=== PATIENT | male | born 1960 | race Caucasian/White ===

== ENCOUNTER 2020-09-03 08:31 | Inpatient (IN) | payer BC, SELFPAY ==
[2020-09-03] VITALS (88 sets, daily range): BP systolic 77–154; BP diastolic 56–105; PULSE 98–134; RESP 18–37; TEMP 36–37; O2SAT 69–100; BMI 24.3
--- NOTE | ~2020-09-03 | XR_ITS ---
EXAMINATION: XR chest 1V portable INDICATION: Acute respiratory failure TECHNIQUE: Portable AP chest at 0550 hours COMPARISON: 09/04/2020 FINDINGS: The endotracheal tube ends approximately 7.8 cm above the randall. The nasogastric tube is f ollowed as far as the stomach. Its tip is beyond the inferior margin of the radiograph. A right inter nal jugular central venous catheter ends with its tip in the superior vena cava. A moderate size righ t pleural effusion is stable. There is no pneumothorax. Patchy bilateral airspace opacities persist i n all lung zones without significant change. The cardiomediastinal silhouette is stable. IMPRESSION: 1. Stable diffuse lung disease, consistent with pneumonia and/or pulmonary edema and/or acute respira tory distress syndrome (ARDS). 2. Moderate size right pleural effusion without significant change. Reviewed, dictated and finalized at location A. ESSIONAL ARCHITECT IMPRESSION: 1. Stable diffuse lung disease, consistent with pneumonia and/or pulmonary merry a and/or acute respiratory distress syndrome (ARDS). 2. Moderate size right pleural effusion without significant change.
--- NOTE | ~2020-09-03 | XR_ITS ---
EXAMINATION: XR chest 1V portable DATE: 09/15/2020 06:14 INDICATION: COVID 19 pneumonia. Acute respiratory failure. TECHNIQUE: frontal view of the chest was obtained. COMPARISON: Chest radiograph dated 09/14/2020 FINDINGS: Endotracheal tube tip 7.7 cm above the randall. Nasogastric tube extends below the left hemidiaphragm with distal tip collimated off the study. Right internal jugular central venous catheter with distal tip at the midsuperior vena cava. Emphysema with regions of increased lucency and architectural distortion at the bilateral upper lung zones. No significant interval change in diffuse bilateral lung disease which continues to relatively spare the subpleural lungs. Small bilateral pleural effusions. No pneumothorax. The cardiomediastina l silhouette is normal. IMPRESSION: 1. Endotracheal tube tip 7.7 cm above the randall. Recommend advancement by 5 cm. 2. No significant change in diffuse bilateral perihilar predominant opacities which could represent p ulmonary edema and/or pneumonia. 3. Small bilateral pleural effusions. 4. Emphysema. Reviewed, dictated and finalized at location A. LING LINE OPERATOR IMPRESSION: 1. Endotracheal tube tip 7.7 cm above the randall. Recommend advancement by 5 cm . 2. No significant change in diffuse bilateral perihilar predominant opacities w hich could represent pulmonary edema and/or pneumonia. 3. Small bilateral pleural effusions. 4. Emphysema.
--- NOTE | ~2020-09-03 | XR_ITS ---
EXAMINATION: XR chest 1V portable DATE: 09/12/2020 06:18 INDICATION: Pneumonia TECHNIQUE: frontal view of the chest was obtained. COMPARISON: Chest radiograph dated 09/10/2020 FINDINGS: Endotracheal tube tip 8.1 cm above the randall. Nasogastric tube extends below the left hemidiaphragm with distal tip collimated off the study. Right internal jugular central venous catheter with distal tip in the mid superior vena cava. Emphysema with increased lucency and architectural distortion at the apices. Persistent bilateral pat shanta airspace opacities. This is superimposed over a gradient of hazy lower lung predominant airspace opacities with blunting at the costophrenic angles consistent with small bilateral pleural effusions. The cardiomediastinal silhouette is normal. Old left-sided rib fractures. IMPRESSION: 1. Endotracheal tube tip 8.1 cm above the randall. Recommend advancement by 5 7 6 cm. 2. Minimal change in patchy bilateral airspace opacities concerning for pneumonia with differential i ncluding pulmonary edema. 3. Small bilateral pleural effusions. Reviewed, dictated and finalized at location A. DING SUPERVISOR IMPRESSION: 1. Endotracheal tube tip 8.1 cm above the randall. Recommend advancement by 5 7 6 cm. 2. Minimal change in patchy bilateral airspace opacities concerning for pneumon ia with differential including pulmonary edema. 3. Small bilateral pleural effusions.
--- NOTE | ~2020-09-03 | US_ITS ---
EXAMINATION: US right upper quadrant DATE: 09/04/2020 10:32 INDICATION: Abnormal liver function tests. TECHNIQUE: Multiple grayscale and Doppler ultrasound images of the abdomen were obtained. COMPARISON: CT abdomen and pelvis 09/03/2020 FINDINGS: The visualized portions of the head, body, and tail of the pancreas are normal. The liver i s normal without focal lesion. There is normal flow in main portal vein. The gallbladder is distended and contains sludge. Gallbladder wall thickening is noted. The common duct is mildly dilated to 8 mm . There is trace ascites adjacent to the gallbladder. IMPRESSION: 1. Distended gallbladder with sludge and wall thickening, but no visible gallstones. These findings a re indeterminate for acute cholecystitis. Gallbladder wall thickening may also be seen with chronic l iver disease, chronic cholecystitis, or interstitial edema, and gallbladder distention may be seen wi th fasting. Consider hepatobiliary scintigraphy. Reviewed, dictated and finalized at location A. CHIEF IMPRESSION: 1. Distended gallbladder with sludge and wall thickening, but no visible gallst ones. These findings are indeterminate for acute cholecystitis. Gallbladder wal l thickening may also be seen with chronic liver disease, chronic cholecystitis , or interstitial edema, and gallbladder distention may be seen with fasting. C onsider hepatobiliary scintigraphy.
--- NOTE | ~2020-09-03 | XR_ITS ---
EXAMINATION: XR chest 1V portable EXAM DATE: 09/09/2020 11:14 INDICATION: ET position change, reposition . Acute respiratory failure. TECHNIQUE: Portable AP frontal chest x-ray was obtained. Comparison is made to prior examination from earlier same date and 09/08/2020. FINDINGS: Endotracheal tube has been advanced, tip is 5-6 centimeters above the randall, adequate. Th ere is a nasogastric tube seen with tip collimated off the study, but below the left hemidiaphragm. There is a right IJ venous line. There is moderate to severe bilateral acute airspace disease with relative sparing of the left upper lobe. Probably pneumonia. Hyperinflated appearing lungs may indicate patient has underlying COPD. Sm all right, possible small left pleural effusions. There is no pneumothorax suspected. Cardiomedias tinal silhouette is normal. Mild thoracic spondylosis. Old rib fractures. Airspace disease appears unchanged. IMPRESSION: 1. Tubes, line in position. 2. Rather extensive right greater than left acute airspace disease unchanged.. 3. Small pleural effusions. Reviewed, dictated and finalized at location A. BERRY BOG SUPERVISOR
--- NOTE | ~2020-09-03 | XR_ITS ---
EXAMINATION: XR chest 1V portable INDICATION: Acute respiratory failure TECHNIQUE: Portable AP chest at 0536 hours COMPARISON: 09/03/2020 FINDINGS: The endotracheal tube ends approximately 6.7 cm above the randall. The nasogastric tube is f ollowed as far as the stomach. Its tip is beyond the inferior margin of the radiograph. A right inter nal jugular catheter ends with its tip in the distal superior vena cava. A moderate size right pleura l effusion is unchanged. There is no pneumothorax or left pleural effusion. The cardiomediastinal sarina houette is stable. Airspace opacities persist throughout all lung zones but have improved. IMPRESSION: 1. Diffuse lung disease with interval improvement, consistent with pneumonia and/or pulmonary edema a nd/or acute respiratory distress syndrome (ARDS). 2. Improved right pleural effusion. Reviewed, dictated and finalized at location A. CTOR OF ANESTHESIA SERVICES IMPRESSION: 1. Diffuse lung disease with interval improvement, consistent with pneumonia an d/or pulmonary edema and/or acute respiratory distress syndrome (ARDS). 2. Improved right pleural effusion.
--- NOTE | ~2020-09-03 | XR_ITS ---
EXAMINATION: XR chest 1V portable EXAM DATE: 09/07/2020 06:17 INDICATION: Acute respiratory failure. TECHNIQUE: Portable AP frontal chest x-ray was obtained. Comparison is made to prior examination from 09/06/2020, 09/05, 09/03. FINDINGS: Endotracheal tube tip is about 7 centimeters above the randall. This could be safely advanc ed 2 cm. There is a nasogastric tube seen with tip collimated off the study, but below the left hemid iaphragm. There is a right IJ venous line. There is extensive bilateral acute airspace disease with relative sparing of the left upper lobe. Pro bably pneumonia. Probable layering small pleural effusions. There is no pneumothorax suspected. C ardiomediastinal silhouette is normal. Some chronic hyperinflation. The bones and soft tissues are u nremarkable. There is no significant interval change compared to prior exam. IMPRESSION: 1. ET tube could be safely advanced 2 cm. 2. Extensive bilateral acute airspace disease. 3. Probable layering small pleural effusions. Reviewed, dictated and finalized at location A. TECH
--- NOTE | ~2020-09-03 | XR_ITS ---
EXAMINATION: XR chest ET placement DATE: 09/03/2020 14:24 INDICATION: Intubation. TECHNIQUE: A single frontal view of the chest was obtained on 2 radiograph. COMPARISON: Chest single view at 9:19 AM FINDINGS: There are lucencies in the lungs, consistent with emphysema. There are airspace opacities i n all right lung zones and left mid and lower lung zones with a lower lung predominance. No pleural e ffusion or pneumothorax. The heart size is normal. The endotracheal tube tip is 7.4 cm above the franco na. The nasogastric tube tip is beyond the inferior margin of the radiograph, but at least to the sto mach. A right internal jugular central venous catheter is seen with tip in the superior vena cava. IMPRESSION: 1. Airspace opacities in all right lung zones and left mid and lower lung zones with a lower lung pre dominance, consistent with pneumonia. 2. Emphysema. Reviewed, dictated and finalized at location A. ING SUPERVISOR IMPRESSION: 1. Airspace opacities in all right lung zones and left mid and lower lung zones with a lower lung predominance, consistent with pneumonia. 2. Emphysema.
--- NOTE | ~2020-09-03 | CT_ITS ---
EXAMINATION: CT abdomen pelvis wo con DATE: 09/03/2020 11:50 INDICATION: Low abdominal pain. TECHNIQUE: Computed tomography (CT) of the abdomen and pelvis was performed without intravenous contr ast. Automated exposure control and iterative reconstruction technique were employed. The dose-length product was 824.21 mGy-cm. COMPARISON: None. FINDINGS: There are extensive airspace opacities in the lower lobes with air bronchograms and cavitat ion, consistent with pneumonia. There are tree-in-bud opacities and centrilobular nodules in right mi ddle lobe, consistent with pneumonia. There is mild atelectasis in lingula. The heart size is normal. No pericardial effusion. There is diffuse hepatic steatosis. Calcifications in the spleen are consis tent with old granulomatous disease. The gallbladder, pancreas, adrenal glands, and kidneys are sandra l. There is no urolithiasis. There are scattered diverticula in the colon. There is a left inguinal h ernia containing nonobstructed sigmoid colon. There is a right inguinal hernia containing small bowel and appendix. Small bowel is dilated proximal to the right inguinal hernia, consistent with obstruct ion. There are no pathologically enlarged lymph nodes. There is no free intraperitoneal fluid. There is a total right hip arthroplasty. There is severe left hip osteoarthritis with large joint effusion and iliopsoas bursitis. There are chronic bilateral L5 pars defects. There is mild lumbar spondylosis . There is mild chronic anterior wedging of T11-L1 vertebral bodies. IMPRESSION: 1. Right inguinal hernia containing small bowel and appendix with small bowel obstruction. 2. Left inguinal hernia containing nonobstructed sigmoid colon. 3. Necrotizing lobar pneumonia in the lower lobes. Mild pneumonia in right middle lobe. Reviewed, dictated and finalized at location A. NCT WRITING INSTRUCTOR IMPRESSION: 1. Right inguinal hernia containing small bowel and appendix with small bowel o bstruction. 2. Left inguinal hernia containing nonobstructed sigmoid colon. 3. Necrotizing lobar pneumonia in the lower lobes. Mild pneumonia in right midd le lobe.
--- NOTE | ~2020-09-03 | XR_ITS ---
EXAMINATION: XR chest 1V portable INDICATION: Acute respiratory failure TECHNIQUE: Portable AP chest at 0523 hours COMPARISON: 09/05/2020 FINDINGS: The endotracheal tube ends approximately 7.2 cm above the randall. The nasogastric tube is i n the stomach. A right internal jugular catheter ends with its tip in the superior vena cava. There i s a stable moderate-sized right pleural effusion. Patchy bilateral airspace opacities persist in all lung zones without significant change. The cardiomediastinal silhouette is stable. IMPRESSION: 1. Stable diffuse lung disease, consistent with pneumonia and/or pulmonary edema and/or acute respira tory distress syndrome (ARDS). 2. Moderate size right pleural effusion, stable. Reviewed, dictated and finalized at location A. TRICAL SUPERVISOR IMPRESSION: 1. Stable diffuse lung disease, consistent with pneumonia and/or pulmonary merry a and/or acute respiratory distress syndrome (ARDS). 2. Moderate size right pleural effusion, stable.
--- NOTE | ~2020-09-03 | XR_ITS ---
EXAMINATION: XR chest 1V portable EXAM DATE: 09/10/2020 06:40 INDICATION: Pneumonia. TECHNIQUE: Portable AP frontal chest x-ray was obtained. Comparison is made to prior examination from 09/09/2020. FINDINGS: Endotracheal tube tip just below the level of the clavicles, may have retracted slightly. Nasogastric tube tip in stomach but side port probably at the gastroesophageal junction. There is a right IJ venous line. There is moderate to severe bilateral acute airspace disease with relative sparing of the left upper lobe. Probably pneumonia. Hyperinflated appearing lungs may indicate patient has underlying COPD. Sm all right, possible small left pleural effusions. There is no pneumothorax suspected. Cardiomedias tinal silhouette is normal. Mild thoracic spondylosis. Old rib fractures. Airspace disease appears unchanged, accounting for differences in technique. IMPRESSION: 1. ET tube could be safely advanced 2 cm. NG tube could be safely advanced 5 cm. 2. Extensive right greater than left acute airspace disease unchanged. 3. Small pleural effusions. STARTER Reviewed, dictated and finalized at location A. IMPRESSION: 1. ET tube could be safely advanced 2 cm. NG tube could be safely advanced 5 c m. 2. Extensive right greater than left acute airspace disease unchanged. 3. Small pleural effusions.
--- NOTE | ~2020-09-03 | US_ITS ---
EXAMINATION: US scrotum doppler EXAM DATE: 09/04/2020 10:37 INDICATION: large scrotal. TECHNIQUE: Multiple grayscale and Doppler images of the testicles and scrotum were obtained bilateral ly. Correlation is made to CT abdomen pelvis from 09/03/2020. FINDINGS: Right testicle measures 3.6 x 2.2 x 3.8 cm and is morphologically normal. Low resistance Doppler lakisha w confirmed. The epididymis is unremarkable. There is large right inguinal hernia with several loops of small bowel inside, demonstrating peristalsis. Moderate hydrocele. Left testicle measures 4.0 x 2.2 x 3.4 cm and is morphologically normal. Low resistance Doppler flow confirmed. The epididymis is unremarkable. Left inguinal tubular structure likely the sigmoid colon correlating to recent CT scan, extending toward the scrotal sac. There is small hydrocele. IMPRESSION: 1. Right inguinal hernia with small bowel reaching the scrotum. Moderate hydrocele. 2. Left inguinal hernia with colon in inguinal canal. Small hydrocele. 3. Morphologically normal testicles. No torsion. Reviewed, dictated and finalized at location B. GER OF EMPLOYEE RELATIONS IMPRESSION: 1. Right inguinal hernia with small bowel reaching the scrotum. Moderate hydro luz maria. 2. Left inguinal hernia with colon in inguinal canal. Small hydrocele. 3. Morphologically normal testicles. No torsion.
--- NOTE | ~2020-09-03 | XR_ITS ---
EXAMINATION: XR chest 1V portable DATE: 09/03/2020 09:28 INDICATION: Hypoxia. Cough. TECHNIQUE: A single frontal view of the chest was obtained. COMPARISON: Chest 2 views 03/19/2018 FINDINGS: There are lucencies in the lungs, consistent with emphysema. There are airspace opacities i n the mid and lower lung zones, right worse than left. No pleural effusion or pneumothorax. The heart size is normal. There are old healed left rib fractures. IMPRESSION: 1. Airspace opacities in the mid and lower lung zones, right worse than left, consistent with pneumon ia. 2. Emphysema. Reviewed, dictated and finalized at location A. S AND SERVICE CHANGE LEADER IMPRESSION: 1. Airspace opacities in the mid and lower lung zones, right worse than left, c onsistent with pneumonia. 2. Emphysema.
--- NOTE | ~2020-09-03 | XR_ITS ---
EXAMINATION: XR abdomen NG/feed tube insert EXAM DATE: 09/03/2020 20:25 INDICATION: NG tube placement TECHNIQUE: Frontal projection(s) of the abdomen for interpretation. Comparison is made to prior exami nation from earlier same day. FINDINGS: Feeding tube tip and side-port project over gastric bubble, expected position. Layering zion ateral pleural effusions right greater than left. Bilateral acute airspace disease. Paucity of intra- abdominal bowel gas, nonspecific. IMPRESSION: 1. Nasogastric tube in position. Reviewed, dictated and finalized at location A. NESS TRAINER
--- NOTE | ~2020-09-03 | XR_ITS ---
EXAMINATION: XR chest 1V portable EXAM DATE: 09/09/2020 05:52 INDICATION: Acute respiratory failure. TECHNIQUE: Portable AP frontal chest x-ray was obtained. Comparison is made to prior examination from 09/08/2020. FINDINGS: Endotracheal tube tip is about 7 centimeters above the randall. This could be safely advanc ed 2 cm. There is a nasogastric tube seen with tip collimated off the study, but below the left hemid iaphragm. There is a right IJ venous line. There is moderate to severe bilateral acute airspace disease with relative sparing of the left upper lobe. Probably pneumonia. Hyperinflated appearing lungs may indicate patient has underlying COPD. Sm all right, possible small left pleural effusions. There is no pneumothorax suspected. Cardiomedias tinal silhouette is normal. Mild thoracic spondylosis. Old rib fractures. Airspace disease appears unchanged. IMPRESSION: 1. ET tube could be safely advanced 2 cm. 2. Rather extensive right greater than left acute airspace disease unchanged.. 3. Small pleural effusions. 4. Reviewed, dictated and finalized at location A. ERY SCHOOL ATTENDANT
--- NOTE | ~2020-09-03 | XR_ITS ---
EXAMINATION: XR chest 1V portable DATE: 09/13/2020 06:08 INDICATION: Acute respiratory failure. COVID 19 pneumonia. TECHNIQUE: frontal view of the chest was obtained. COMPARISON: Chest radiograph dated 09/12/2020 FINDINGS: Endotracheal tube tip 7.7 cm above the randall. Nasogastric tube extends below the left hemidiaphragm with distal tip collimated off the study. Right internal jugular central venous catheter with distal tip at the caudal superior vena cava. Emphysema with increased lucency and architectural distortion in the upper lung zones. Gradient of conn zy lower lung predominant airspace opacities with blunting at the left costophrenic angle consistent with small posterior layering bilateral pleural effusions. Superimposed perihilar and lower lung pred ominant interstitial and airspace opacities with mild increase in left perihilar region which could r epresent pulmonary edema and/or pneumonia. The cardiomediastinal silhouette is normal. IMPRESSION: 1. Endotracheal tube tip 7.7 cm above the randall. Recommend advancement by 5 cm. 2. Bilateral perihilar and lower lung predominant opacities which could represent pulmonary edema and /or pneumonia with mild increase in the left perihilar region. 3. Small bilateral pleural effusions. Reviewed, dictated and finalized at location A. COILER IMPRESSION: 1. Endotracheal tube tip 7.7 cm above the randall. Recommend advancement by 5 cm . 2. Bilateral perihilar and lower lung predominant opacities which could represe nt pulmonary edema and/or pneumonia with mild increase in the left perihilar re gion. 3. Small bilateral pleural effusions.
--- NOTE | ~2020-09-03 | XR_ITS ---
EXAMINATION: XR chest 1V portable EXAM DATE: 09/08/2020 05:55 INDICATION: Acute respiratory failure. TECHNIQUE: Portable AP frontal chest x-ray was obtained. Comparison is made to prior examination from 09/07. FINDINGS: Endotracheal tube tip is about 7 centimeters above the randall. This could be safely advanc ed 2 cm. There is a nasogastric tube seen with tip collimated off the study, but below the left hemid iaphragm. There is a right IJ venous line. There is moderate to severe bilateral acute airspace disease with relative sparing of the left upper lobe. Probably pneumonia. Hyperinflated appearing lungs may indicate patient has underlying COPD. Pro bable small pleural effusions. There is no pneumothorax suspected. Cardiomediastinal silhouette is normal. Mild thoracic spondylosis. Old rib fractures. Compared to last couple of days, suspect mild improvement in the airspace disease. IMPRESSION: 1. ET tube could be safely advanced 2 cm. 2. Mild improvement in bilateral acute airspace disease. 3. Small pleural effusions. Reviewed, dictated and finalized at location A. MENT SETTER
--- NOTE | ~2020-09-03 | XR_ITS ---
EXAMINATION: XR chest ET placement EXAM DATE: 09/03/2020 20:25 INDICATION: After intubation to confirm ET placement TECHNIQUE: Portable AP frontal chest x-ray was obtained. Comparison is made to prior examination from earlier same day. FINDINGS: Endotracheal tube tip is 6-7 centimeters above the randall, but below the level of the clavi cles. This could be safely advanced 2 cm. There is a right-sided IJ venous line. There is a nasogast elian tube seen with tip collimated off the study, but below the left hemidiaphragm. There is extensive right-sided, moderate left-sided acute airspace disease, likely pneumonia. Probabl e layering pleural effusions. No pneumothorax. Chronic hyperinflation. There are no osseous abnormali ties identified. IMPRESSION: 1. ET tube could be safely advanced 2 cm. 2. Extensive right greater than left acute airspace disease likely pneumonia. 3. Layering pleural effusions, difficult to quantify. Reviewed, dictated and finalized at location A. ER OPERATOR
--- NOTE | ~2020-09-03 | XR_ITS ---
EXAMINATION: XR abdomen NG/feed tube insert DATE: 09/03/2020 14:23 INDICATION: Nasogastric tube placement. TECHNIQUE: A supine view of the abdomen was obtained. COMPARISON: CT abdomen and pelvis 09/03/2020 FINDINGS: The right lateral aspect of the abdomen and the lower abdomen are excluded. The nasogastric tube tip is in the stomach. IMPRESSION: 1. Nasogastric tube tip in the stomach. Reviewed, dictated and finalized at location A. YSIS MGR
--- NOTE | ~2020-09-03 | CT_ITS ---
EXAMINATION: CT brain wo con DATE: 09/03/2020 11:50 INDICATION: Confusion. TECHNIQUE: Computed tomography (CT) of the head was performed without intravenous contrast. The mA wa s adjusted according to patient size. Iterative reconstruction technique was employed. The dose-lengt h product was 605.33 mGy-cm. COMPARISON: None FINDINGS: There is no intracranial hemorrhage, acute infarction, or abnormal intracranial mass lesion . The ventricles are normal in size. There is mild mucosal thickening in the paranasal sinuses. There is near complete opacification of left frontal sinus. There is sclerosis of the malhotra of sphenoid si nus and left frontal sinus, consistent with sinusitis. The mastoid air cells are normal. There is cer umen in the external auditory canals. The orbits are normal. IMPRESSION: 1. Normal brain. 2. Chronic sinusitis. Reviewed, dictated and finalized at location A. SEPARATOR
--- NOTE | ~2020-09-03 | US_ITS ---
EXAMINATION: US renal BI DATE: 09/05/2020 11:23 INDICATION: Acute kidney injury. TECHNIQUE: Multiple ultrasound grayscale images of the kidneys were obtained. COMPARISON: CT abdomen and pelvis 09/03/2020 FINDINGS: The right kidney measures 11.5 x 5.0 x 6.0 cm. The left kidney measures 11.9 x 5.5 x 4.6 cm. The kidn eys demonstrate normal parenchymal echogenicity. There is no hydronephrosis. The bladder is decompres sed by a Francois catheter. IMPRESSION: 1. Normal kidneys. No hydronephrosis. Reviewed, dictated and finalized at location A. ER
--- NOTE | ~2020-09-03 | XR_ITS ---
EXAMINATION: XR chest 1V portable DATE: 09/14/2020 06:34 INDICATION: COVID 19 pneumonia. Acute respiratory failure TECHNIQUE: frontal view of the chest was obtained. COMPARISON: Chest radiograph dated 09/13/2020 FINDINGS: Endotracheal tube tip 10.1 cm above the randall. Nasogastric tube extends below the left hemidiaphrag m with distal tip collimated off the study. Right internal jugular central venous catheter with dista l tip in the midsuperior vena cava. Emphysema with increased lucency and architectural distortion in the upper lung zones. No significant interval change in patchy airspace opacities with perihilar predominance superimposed over a gradien t of hazy airspace opacities throughout the mid to lower lung zones. Blunting at the left costophreni c angle. No pneumothorax. Heart size is normal. IMPRESSION: 1. Endotracheal tube tip 10.1 cm above the randall. Recommend advancement by 7-8 cm. 2. Bilateral parahilar predominant opacities which could represent pulmonary edema and/or pneumonia. 2. Small bilateral pleural effusions. 3. Emphysema. Reviewed, dictated and finalized at location A. PROGRAMMER IMPRESSION: 1. Endotracheal tube tip 10.1 cm above the randall. Recommend advancement by 7-8 cm. 2. Bilateral parahilar predominant opacities which could represent pulmonary ed sharri and/or pneumonia. 2. Small bilateral pleural effusions. 3. Emphysema.
--- NOTE | ~2020-09-03 | US_ITS ---
EXAMINATION: US venous doppler UE RT DATE: 09/13/2020 14:17 INDICATION: Right upper limb swelling TECHNIQUE: Grayscale images without and with compression and Doppler images of the right upper extrem ity veins were obtained. COMPARISON: None. FINDINGS: Linear echogenic central venous catheter is seen within the right internal jugular vein. The right in ternal jugular vein, subclavian vein, axillary vein, brachial vein, basilic vein, radial vein, and ul you vein are patent. There is occlusive hypoechoic thrombus within the right cephalic vein which is d ilated in the region of the antecubital fossa. There is some surrounding subcutaneous edema and per s onographer notation associated bruising. IMPRESSION: 1. Thrombosis of the right cephalic vein in the region of the antecubital fossa with surrounding brui sing and edema would suggest a thrombophlebitis or potentially sequela of prior peripheral IV placeme nt. Correlate with clinical history. Reviewed, dictated and finalized at location A. OPTICAL ELEMENT MAKER IMPRESSION: 1. Thrombosis of the right cephalic vein in the region of the antecubital fossa with surrounding bruising and edema would suggest a thrombophlebitis or potent ially sequela of prior peripheral IV placement. Correlate with clinical history .
--- NOTE | 2020-09-03 08:43 | ECG_ITS ---
Measurements Intervals [place] Rate: 127 P: 83 TX: 142 QRS: 71 QRSD: 104 T: 66 QT: 305 QTc: 444 Interpretive Statements SINUS TACHYCARDIA LOW QRS VOLTAGE IN LIMB LEADS BASELINE WANDER- I, V4-V6 ABNORMAL ECG Electronically Signed On 09-03-2020 11:18:26 LAW SECRETARY by Telly Constantino D.O.
[2020-09-03] MEDS: SODIUM CHLORIDE 0.9% IV 1,000 ML 999 ML IV CONT ×3 (08:47→14:08)
[2020-09-03 09:11] LABS: Hematocrit 45.1 % (42.0-52.0); Hemoglobin 15.1 g/dL (14.0-18.0); Mean Corpuscular HGB Conc 33.5 g/dl (32-36); Mean Corpuscular Hemoglobin 35.6 pg (26-34); Mean Corpuscular Volume 106.4 fl (80-100); Mean Platelet Volume 11.1 fl (7.4-10.4); Platelet Count Result 159 k/mm3 (150-375); Red Blood Count 4.24 M/mm3 (4.6-6.20); Red Cell Distribution Width 14.3 % (11.5-14.5); White Blood Count 4.2 K/mm3 (4.5-10.0)
[2020-09-03 09:11] LABS: Alveolar/Arterial O2 Gradient 590.5 mmHg; Base Excess ABG -10.5 mEq/l (+/-2.0); Carboxyhemoglobin 1.4 % THb (0-2.0); Fractional Inspired Oxygen 100 %; HCO3 ABG 16.4 mEq/l (22.0-26.0); Methemoglobin ABG 0.1 %THb (0-1.5); Oxygen Content ABG 18.3 %vol (16.0-22.0); Oxygen Saturation ABG 94.3 % (95.0-100.0); Oxyhemoglobin 93.2 % THb (90.0-100.0); PCO2 ABG 39.9 mmHg (35.0-45.0); PO2 ABG 82.6 mmHg (80.0-100.0); PO2 FiO2 Ratio Arterial Blood 0.83 %; Reduced Hemoglobin 5.3 %THb (0-5.0); Total Hemoglobin 13.9 g/dL (12.0-18.0)
[2020-09-03 09:14] LABS: Device NON-REBREATHER MASK; Modified Allen's Test Pass; Site Drawn RIGHT RADIAL; pH ABG 7.231 (7.350-7.450)
[2020-09-03 09:21] LABS: INR 1.2; Prothrombin Time 15.3 Seconds (11.1-14.7)
[2020-09-03 09:22] LABS: Ammonia < 9 umol/L (9-30)
[2020-09-03 09:32] LABS: Albumin Level 2.9 g/dL (3.5-5.1); Alkaline Phosphatase 122 U/L (38-126); Anion Gap 11 mmol/L (8-16); Bilirubin,Total 1.9 mg/dL (0.2-1.3); Blood Urea Nitrogen 40 mg/dL (9-20); Calcium 7.6 mg/dL (8.4-10.2); Carbon Dioxide 22 mmol/L (22-30); Chloride 99 mmol/L (98-107); Creatine Kinase 46 U/L (55-170); Estimated CRCL calculation 27 ml/min; Estimated Glomerular Filt Rate 28; Glucose 64 mg/dL (75-110); Lipase 19 U/L (23-300); Potassium 3.9 mmol/L (3.4-5.0); Sodium 132 mmol/L (137-145)
[2020-09-03 09:33] LABS: Lactic Acid Reflex 8.2 mmol/L (0.7-2.1)
[2020-09-03 09:37] LABS: Glucose Point of Care 25 (65-105)
[2020-09-03 09:38] LABS: D Dimer 2.58 ug/mL (<0.48)
[2020-09-03 09:39] LABS: Band Neutrophils Percent 12 % (0-6); Lymphocytes Absolute Manual 0.29 K/mm3 (1.1-4.5); Metamyelocytes Percent 5 %; Monocytes Absolute Manual 1.55 K/mm3 (0.1-0.90); Monocytes Percent Manual 37 % (3-9); Neutrophils Absolute Manual 2.14 K/mm3 (1.3-6.7); Neutrophils Percent Manual 39 % (46-73); Nucleated Red Blood Cells 1 %; Total Cells Counted 100
[2020-09-03 09:40] LABS: Platelet Estimate Adequate (Adequate)
[2020-09-03] MEDS: DEXTROSE 50% 25 GM/50 ML SYRINGE (09:40)
[2020-09-03 09:47] LABS: Add Urine Microscopic? YES; Amorphous Sediment Urine Few; Appearance Urine Cloudy (Clear); Bilirubin Urine Negative (Negative); Blood Urine 1+ (Negative); Glucose Urine UA Negative (Negative); Granular Casts Urine 30-49 /lpf; Hyaline Casts Urine 50+ /lpf; Ketones Urine Negative (Negative); Leukocyte Esterase Ur Negative LEU/UL (Negative); Mucus Urine Few /lpf; Nitrate Urine Negative (Negative); Protein Urine 2+ mg/dL (Negative); Specific Grav Ur 1.027 (1.001-1.035); Squamous Epithelial Cell Urine Many /hpf (Few)
[2020-09-03 09:48] LABS: Color Urine Brown (Yellow)
[2020-09-03 10:23] LABS: Glucose Point of Care 81 (65-105)
[2020-09-03 10:41] LABS: Alanine Aminotransferase 2283 U/L (4-50); Aspartate Amino Transferase 2691 U/L (17-59)
--- NOTE | 2020-09-03 10:54 | ED.WEAKNESS ---
HPI - Weakness General Chief complaint: Weakness Stated complaint: sick for weeks Time Seen by Provider: 09/03/20 08:38 Source: patient Mode of arrival: EMS Limitations: altered mental status History of Present Illness HPI Narrative: This patient is a 60 year old male with unknown medical problems who presents for evaluation of not feeling well . EMS states patient has been sick for 2 weeks. He is unable to explain how he is sick. They states he has been been eating or drinking for several days. EMS found patient with blood glucose of 30 so he was given a half amp D50. He denies chest pain, abdominal pain . Related Data Home Medications Medication Instructions Recorded Confirmed acetaminophen [Tylenol Arthritis] 2,600 mg PO Q8H PRN 09/03/20 09/03/20 albuterol sulfate 2 puff INHALATION PRN 09/03/20 09/03/20 fluticasone furoate-vilanterol See Rx Instructions .ROUTE .COMPLEX 09/03/20 09/03/20 [Breo Ellipta] Allergies Allergy/AdvReac Type Severity Reaction Status Date / Time cephalexin [From Keflex] Allergy Hives Verified 09/03/20 17:39 Review of Systems Review of Systems: ROS unobtainable: Yes unobtainable due to medical condition [facility] Past Medical History Medical History Medical history unknown Family History Family History (Updated 09/03/20 @ 17:46 by Alejandra Mccallum RN) Other Unknown family medical history Social History Social History Smoking status: Current every day smoker Tobacco type: cigarettes Alcohol intake: current Drinks per week: 42 Substance use: never Spiritual care concerns: No Exam Const: General: alert and ill appearing Nutritional Appearance: thin Other: in urine soaked pants HENMT: Head: normocephalic and atraumatic Mouth: Yes dry mucous membranes Eyes: EOM: EOMs intact bilaterally Resp: Effort & Inspection: tachypneic Auscultation: crackles Cardio: Rate: tachycardic Rhythm: regular rhythm Heart sounds: no murmurs GI: GI Palp: Yes Soft to palpation, No Tenderness to palpation present (GI) and No Guarding due to palpation present (GI) : Scrotum: scrotal swelling Neuro: General: moves all extremities Other: palpable bilateral DP pulse Extrem: General: no pedal edema Course Reevaluation(s) Reevaluation #1: I have discussed with patient that he is critically ill. He has acute renal failure, liver failure acute respiratory failure. His ABG shows worsening acidosis combination of metabolic and respiratory. He will get intubated. HE will also had CVL placed due to hypotension despite 3 L IVF Date: 09/03/20 Time: 13:00 Reevaluation #2: PAtient appears to be mottling, but has palpable pulse in his feet. Date: 09/03/20 Time: 16:00 Consultations Consultation #1: I Discussed case with Smiley Grimse patient with septic shock, acute respiratory failure, no further recommendation. She accepts to ICU Date: 09/03/20 Time: 12:34 Consultation #2: I Discussed case with DR. Cortez who agrees to consult and come see patient today for his bilateral inguinal hernia with possible SBO. Date: 09/03/20 Time: 12:46 Consultation #3: I discussed case with Dr. Pappas the retail marketing manager who accepts patient to ICU. I discussed case , labs, xray, surgical consult pending. He request repeat labs in a few hours. Date: 09/03/20 Time: 14:00 Vital Signs Vital signs: Vital Signs Temperature 97.6 F 09/03/20 08:27 Pulse Rate 130 H 09/03/20 08:27 Respiratory Rate 26 H 09/03/20 08:27 Blood Pressure 102/67 09/03/20 08:27 Pulse Oximetry 70 L 09/03/20 08:27 Temperature 96.8 F L 09/03/20 17:16 Pulse Rate 117 H 09/03/20 18:00 Respiratory Rate 20 09/03/20 17:16 Blood Pressure 125/81 09/03/20 17:16 Pulse Oximetry 96 09/03/20 17:16 Procedures Central Line Placement Right IJ: Central Line Date: 09/03/20 Cent
[2020-09-03 11:44] LABS: Hepatitis B Surface Antigen Negative (Negative)
[2020-09-03 11:49] LABS: HAV RESULT Negative (Negative); Hepatitis B Core IgM Result Negative (Negative)
[2020-09-03 12:01] LABS: Hepatitis C Virus Antibody Negative (Negative)
[2020-09-03 12:09] LABS: Reflex Lactic Acid Yes or No Add Lactic
[2020-09-03 12:48] LABS: Base Excess ABG -12.2 mEq/l (+/-2.0); Fractional Inspired Oxygen 100 %; HCO3 ABG 16.6 mEq/l (22.0-26.0); Oxygen Content ABG 19.6 %vol (16.0-22.0); Oxyhemoglobin 97.2 % THb (90.0-100.0); PCO2 ABG 48.8 mmHg (35.0-45.0); PO2 ABG 138.2 mmHg (80.0-100.0); PO2 FiO2 Ratio Arterial Blood 1.38 %; Total Hemoglobin 14.2 g/dL (12.0-18.0)
[2020-09-03 12:49] LABS: pH ABG 7.149 (7.350-7.450)
[2020-09-03 12:50] LABS: Device BIPAP; Modified Allen's Test Pass; Site Drawn RIGHT RADIAL
[2020-09-03 12:52] LABS: Expiratory Pressure 8 cmH2O; Inspiratory Pressure 16 cmH2O
[2020-09-03 13:09] LABS: Lactic Acid 5.6 mmol/L (0.7-2.1)
--- NOTE | 2020-09-03 13:14 | PC.NURSE ---
dr rodrigues to intubate pt respiratory in room ketamine 70 succhs 100 given ivp vs 100, 26,98%, 119/70 tube is 25 at the lip, tube size 7.5 INTUBATED AT 1318 16 FR OG PLACED, AT 65, TAPED NEXT TO ET TUBE
--- NOTE | 2020-09-03 13:41 | PC.NURSE ---
meds given as ordered by dr rodrigues during central line placement Fentanyl 50 versed 2mg veto 50 mg ivp
[2020-09-03] MEDS: KETAMINE HCL (*CRX) 500 MG/10 ML VIAL 70 MG IV PUSH (14:09)
[2020-09-03] MEDS: RAPID SEQUENCE INTUBATION KIT 1 EACH (14:09)
[2020-09-03 14:19] LABS: Glucose Point of Care 86 (65-105)
--- NOTE | 2020-09-03 15:47 | PM.CNGS ---
Assessment and Plan Assessment and plan (1) Septic shock due to undetermined organism: Code(s): A41.9 - Sepsis, unspecified organism; R65.21 - Severe sepsis with septic shock Status: Acute Assessment and Plan: does not appear to be due to intra-abdominal process or bowel obstruction. (2) Community acquired pneumonia, bilateral: Code(s): J18.9 - Pneumonia, unspecified organism Status: Acute Assessment and Plan: COVID-19 testing pending. To go to ICU when bed available. (3) Acute respiratory failure: Qualifiers: Respiratory failure complication: hypoxia Qualified Code(s): J96.01 - Acute respiratory failure with hypoxia Code(s): J96.00 - Acute respiratory failure, unspecified whether with hypoxia or hypercapnia Status: Acute Assessment and Plan: Currently intubated and sedated. (4) Sepsis with acute liver failure and septic shock: Qualifiers: Sepsis type: sepsis due to unspecified organism Hepatic coma status: without hepatic coma Qualified Code(s): A41.9 - Sepsis, unspecified organism; R65.21 - Severe sepsis with septic shock; K72.00 - Acute and subacute hepatic failure without coma Code(s): A41.9 - Sepsis, unspecified organism; R65.21 - Severe sepsis with septic shock; K72.01 - Acute and subacute hepatic failure with coma Status: Acute Assessment and Plan: Shock liver with coagulopathy (5) Acute renal failure: Qualifiers: Acute renal failure type: unspecified Qualified Code(s): N17.9 - Acute kidney failure, unspecified Code(s): N17.9 - Acute kidney failure, unspecified Status: Acute Assessment and Plan: due to hypotension and sepsis (6) Coagulopathy: Code(s): D68.9 - Coagulation defect, unspecified Status: Acute Assessment and Plan: due to sepsis (7) Lactic acidosis: Code(s): E87.2 - Acidosis Status: Acute Assessment and Plan: initially lactate was 8, decreased to 5.6 with resuscitation (8) Bilateral inguinal hernia without obstruction or gangrene: Qualifiers: Recurrence: non-recurrent Qualified Code(s): K40.20 - Bilateral inguinal hernia, without obstruction or gangrene, not specified as recurrent Code(s): K40.20 - Bilateral inguinal hernia, without obstruction or gangrene, not specified as recurrent Status: Chronic Assessment and Plan: despite radiographic appearance of small-bowel obstruction on x-rays, no evidence of small-bowel obstruction clinically. Both hernias are reducible. No history of nausea vomiting or significant abdominal distention. Will follow along but no need for hernia repair at this time. (9) COPD (chronic obstructive pulmonary disease) with emphysema: Qualifiers: Emphysema type: panlobular Qualified Code(s): J43.1 - Panlobular emphysema Code(s): J43.9 - Emphysema, unspecified Status: Chronic Assessment and Plan: Noted on review of Express Care visit from 2018. History of Present Illness Consult details Consult date: 09/03/20 Reason for consult: hernia Requesting physician: Lorene Dumas MD Narrative: The patient is a 60-year-old man who has a history of smoking and COPD. He came to the emergency room today having been sick for quite some time. His mental status was impaired so details of history were not able to be obtained. He was noted to be in septic shock and subsequently was intubated. He is now sedated and intubated and not able to give any history. His workup included chest x-rays and CT scans of the abdomen and pelvis as well as the chest. He has severe bilateral pneumonia. He has been swabbed for COVID-19. CT scan of the abdomen and pelvis showed bilateral large inguinal hernias with concerns for bowel obstruction due to the right inguinal hernia. Patient's history is marginal but he gave no history of nausea vomiting or abdominal pa
[2020-09-03] MEDS: DEXTROSE 50% 25 GM/50 ML SYRINGE IV PUSH ×2 (16:17→23:22)
--- NOTE | 2020-09-03 16:19 | PC.NURSE ---
BG 41 amp d50 given, will start d5 1l when arrives from pharmacy
--- NOTE | 2020-09-03 16:34 | WPDCNINT ---
Assessment and Plan Assessment and plan (1) Acute respiratory failure with hypoxia: Code(s): J96.01 - Acute respiratory failure with hypoxia Status: Acute Assessment and Plan: Intubated on 09/03 at the time of presentation after failure of BIPAP trial Continue mechanical ventilation with same settings. Wean FiO2 and PEEP Sedation with fentanyl and propofol Follow CXR and ABG (2) Bilateral inguinal hernia without obstruction or gangrene: Qualifiers: Recurrence: non-recurrent Qualified Code(s): K40.20 - Bilateral inguinal hernia, without obstruction or gangrene, not specified as recurrent Code(s): K40.20 - Bilateral inguinal hernia, without obstruction or gangrene, not specified as recurrent Status: Chronic Assessment and Plan: Surgery service has been consulted Serial abdominal exam. NPO for now NG tube to wall suction (3) Lactic acidosis: Code(s): E87.2 - Acidosis Status: Acute Assessment and Plan: Monitor hemodynamics closely. Follow serial lactate until resolution (4) Acute renal failure: Code(s): N17.9 - Acute kidney failure, unspecified Status: Acute Assessment and Plan: Strict intake and out records Continue to monitor renal parameters and electrolytes Continue IVF hydration (5) Sepsis with acute liver failure and septic shock: Code(s): A41.9 - Sepsis, unspecified organism; R65.21 - Severe sepsis with septic shock; K72.01 - Acute and subacute hepatic failure with coma Status: Acute Assessment and Plan: Continue levophed and wean pressors if tolerate Continue to monitor LFT. Hepatitis panel has been sent US RUQ will be ordered GI will be consulted if LFT doesn't trended down in next 1-2 days (6) COPD (chronic obstructive pulmonary disease) with emphysema: Qualifiers: Emphysema type: panlobular Qualified Code(s): J43.1 - Panlobular emphysema Code(s): J43.9 - Emphysema, unspecified Status: Chronic Assessment and Plan: Continue bronchodilators (7) Septic shock due to undetermined organism: Code(s): A41.9 - Sepsis, unspecified organism; R65.21 - Severe sepsis with septic shock Status: Acute Assessment and Plan: Continue pressors and wean if tolearted Continue to monitor hemodynamics closely (8) Community acquired pneumonia, bilateral: Code(s): J18.9 - Pneumonia, unspecified organism Status: Acute Assessment and Plan: Continue broad spectrum abx with ceftriaxone/vancomycine and azithromycine Follow cultures Follow COVID19 testing. Continue precaution until he is ruled out (9) Gangrene of toe of left foot: Code(s): I96 - Gangrene, not elsewhere classified Status: Acute Assessment and Plan: bedside doppler of the LE pulses by nursing staff vascular surgery will be consulted Additional Plan Due to a high probability of clinically significant, life threatening deterioration, the patient required my highest level of preparedness to intervene emergently and I personally spent this critical care time directly and personally managing the patient. This critical care time included obtaining a history; examining the patient; pulse oximetry; ordering and review of studies; arranging urgent treatment with development of a management plan; evaluation of patient's response to treatment; frequent reassessment; and discussions with other providers. It was exclusive of separately billable procedures and treating other patients and teaching time. Please see Assessment and Plan section and the rest of the note for further information on patient assessment and treatment. Composite Bond Worker Consult Note Consult date: 09/03/20 Time Seen: 19:06 HPI: Andrew Vidal is a 60 year old male with pmh of COPD and HTN who was brought in to ED with SOB. He was feeling unwell for last 2 weeks with cough an
--- NOTE | 2020-09-03 16:47 | PC.NURSE ---
This patient, Andrew Vidal, was admitted to Intensive Care Unit-6. Patient/family oriented to hospital policies and general routines including ID bracelet, bed and alarms, visiting hours, pain management, procedures, bathroom and other care routines, personal items, smoking policy, room service/diet, and visiting hours. Information on how to activate the Rapid Response Team has been discussed. Patient/Family are encouraged to report perceived risks to care and to ask questions if they do not understand what they are told or what they should do.
[2020-09-03 17:03] LABS: Glucose Point of Care 48 (65-105)
[2020-09-03 17:25] LABS: Hematocrit 47.7 % (42.0-52.0); Hemoglobin 15.5 g/dL (14.0-18.0); Mean Corpuscular HGB Conc 32.5 g/dl (32-36); Mean Corpuscular Hemoglobin 35.5 pg (26-34); Mean Corpuscular Volume 109.2 fl (80-100); Mean Platelet Volume 10.7 fl (7.4-10.4); Platelet Count Result 163 k/mm3 (150-375); Red Blood Count 4.37 M/mm3 (4.6-6.20); Red Cell Distribution Width 14.5 % (11.5-14.5); White Blood Count 16.6 K/mm3 (4.5-10.0)
[2020-09-03 17:32] LABS: Glucose Point of Care 119 (65-105)
[2020-09-03 17:34] LABS: INR 1.1
[2020-09-03 17:35] LABS: Partial Thromboplastin Time 52.1 SECONDS (22.3-36.8)
[2020-09-03 17:37] LABS: Lactic Acid Reflex 3.3 mmol/L (0.7-2.1)
[2020-09-03 17:41] LABS: Band Neutrophils Percent 20 % (0-6); Lymphocytes Absolute Manual 1.66 K/mm3 (1.1-4.5); Lymphocytes Percent Manual 10 % (18-44); Metamyelocytes Percent 4 %; Monocytes Absolute Manual 4.98 K/mm3 (0.1-0.90); Monocytes Percent Manual 30 % (3-9); Neutrophils Absolute Manual 9.29 K/mm3 (1.3-6.7); Neutrophils Percent Manual 36 % (46-73); Total Cells Counted 100
[2020-09-03 17:42] LABS: Nucleated Red Blood Cells 2 %; Platelet Estimate Adequate (Adequate)
[2020-09-03 18:15] LABS: Albumin Level 2.7 g/dL (3.5-5.1); Alkaline Phosphatase 111 U/L (38-126); Anion Gap 9 mmol/L (8-16); Bilirubin,Total 1.6 mg/dL (0.2-1.3); Blood Urea Nitrogen 44 mg/dL (9-20); Calcium 6.8 mg/dL (8.4-10.2); Carbon Dioxide 22 mmol/L (22-30); Chloride 101 mmol/L (98-107); Estimated CRCL calculation 34 ml/min; Estimated Glomerular Filt Rate 36; Glucose 132 mg/dL (75-110); Potassium 5.1 mmol/L (3.4-5.0); Sodium 132 mmol/L (137-145)
[2020-09-03 18:16] LABS: Alanine Aminotransferase 1833 U/L (4-50); Aspartate Amino Transferase 2155 U/L (17-59)
[2020-09-03] MEDS: CENTRAL LINE FLUSH 10 ML IV PUSH ×2 (18:18→21:57)
--- NOTE | 2020-09-03 18:57 | PC.NURSE ---
Patient received fluids in the ED already so no Cheetah performed.
[2020-09-03] MEDS: DEXTROSE 5% 1,000 ML 1,000 ML 75 ML IV CONT (19:00)
[2020-09-03 19:15] LABS: Glucose Point of Care 64 (65-105)
--- NOTE | 2020-09-03 19:36 | PM.IMHP ---
H&P: HPI History of Present Illness Date/Time: 09/03/20 19:36 Chief Complaint: Weakness Narrative: Andrew Vidal is a 60 year old male the patient came in today because he just was not feeling very well for the last 2 weeks. He was just unable to explain how he felt. He stopped eating and drinking over the last several days. EMS found his blood sugar to be in the 30s. Patient was given of half an amp of D50. D5W was hung on the patient because they were not able to keep his blood sugars up. Blood sugar was 20 5 minutes was 81 than 86 and back down to 48 the back up to 119 then back down to 64. Creatinine was 2.4 and then 1.9. 5.1 sodium is 132. Liver enzymes are highly elevated total bilirubin 1.6 AST 2155 ALT 1833. It is reported that the patient drinks about 6 beers a day. Patient was found to have bilateral inguinal hernias. The patient went into respiratory failure and was intubated and placed on a ventilator. A central line was also placed. The patient was taken to ICU in the securities supervisor was consulted and Dr. babb was consulted as well for the bilateral inguinal hernias. Opacities and right lung zones and left mid and lower lung zones with the lower lung predominance consistent with pneumonia and emphysema. Patient was started on azithromycin and vancomycin. The patient is allergic to cephalosporins. IV fluids were given to the patient. The bilateral inguinal hernias were not notice to be reducible and soft. No surgical intervention was needed according to the surgical notes. The patient is found to be septic patient's lactic initially was 8 and then down to 5.6 with resuscitation. COVID testing pending. Patient was admitted to inpatient ICU on the date of service of 09/03/2020 Review of Systems Review of Systems: ROS unobtainable: Yes unobtainable due to endotracheal tube Constitutional: Constitutional: Reports as per HPI and Reports no additional constitutional complaints Eyes: Eyes: Reports as per HPI and Reports no additional eye complaints ENT: Reports system reviewed and no additional complaints, except as documented and Reports Normal hearing present Cardiovascular: Cardiovascular: Reports no additional cardiovascular complaints Respiratory: Respiratory: Reports no additional respiratory complaints and Reports no additional respiratory complaints Gastrointestinal: Gastrointestinal: Reports as per HPI and Reports no additional gastrointestinal complaints Musculoskeletal: Musculoskeletal: Reports no additional musculoskeletal complaints Integumentary/Breasts: Skin/Breast: Reports system reviewed and no additional complaints, except as docu and Reports as per HPI Neurologic: Reports system reviewed and no additional complaints, except as documented, Reports as per HPI and Reports Normal hearing present Psychiatric: Psychiatric: Reports no additional psychiatric complaints and Reports as per HPI Endocrine: Endocrine: Reports no additional endocrine complaints Hematologic/Lymphatic: Hematologic/Lymphatic: Reports no additional hematologic/lymphatic complaints Allergic/Immunologic: Allergic/Immunologic: Reports no additional allergic/immunologic complaints [facility] Past Medical History Medical History (Updated 09/03/20 @ 23:22 by Smiley Grimes NP) COPD (chronic obstructive pulmonary disease) with emphysema With emphysema Inguinal hernia Bilaterally Medical history unknown Surgical History Surgical History (Updated 09/03/20 @ 23:00 by mSiley Grimes NP) Surgical history unknown Family History Family History (Updated 09/03/20 @ 17:46 by Alejandra Mccallum RN) Other Unknown family medical history Social History Social History (Updated 09/03/20 @ 23:09 by Smiley Grimes NP) Social History: The patient is and his states that he drinks about 6 beers a day. 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
[2020-09-03 20:23] LABS: Alveolar/Arterial O2 Gradient 567.5 mmHg; Base Excess ABG -11.7 mEq/l (+/-2.0); Fractional Inspired Oxygen 100 %; HCO3 ABG 19.2 mEq/l (22.0-26.0); Oxygen Content ABG 20.9 %vol (16.0-22.0); Oxygen Saturation ABG 90.7 % (95.0-100.0); Oxyhemoglobin 93.8 % THb (90.0-100.0); PO2 ABG 80.5 mmHg (80.0-100.0); PO2 FiO2 Ratio Arterial Blood 0.81 %; Total Hemoglobin 15.8 g/dL (12.0-18.0)
[2020-09-03 20:24] LABS: Device VENTILATOR; Modified Allen's Test Unable to perform; Site Drawn RIGHT RADIAL; pH ABG 7.088 (7.350-7.450)
[2020-09-03 20:25] LABS: Arterial Blood Gas PEEP 5 cmH2O; Arterial Blood Gas Tidal Volume 450 ml; Arterial Blood Gas Vent Mode CMV; Arterial Blood Gas Ventilator rate 20 /MIN
[2020-09-03 20:36] LABS: Ammonia 50 umol/L (9-30)
--- NOTE | 2020-09-03 20:36 | PC.NURSE ---
Dr. Pappsa updated regarding blood gas and vital signs. Change TV 500, 30 rate, 10peep, 100%. Lactic acid, and NS bolus of 500ml. Updated that we do not have vascular surgery on staff. If unable to dopple pedal pulse, update him on that.
[2020-09-03] MEDS: SODIUM CHLORIDE 0.9% IV 500 ML IV CONT (20:50)
[2020-09-03 20:54] LABS: Anion Gap 10 mmol/L (8-16); Blood Urea Nitrogen 47 mg/dL (9-20); Calcium 6.7 mg/dL (8.4-10.2); Carbon Dioxide 20 mmol/L (22-30); Chloride 103 mmol/L (98-107); Estimated CRCL calculation 31 ml/min; Estimated Glomerular Filt Rate 32; Glucose 87 mg/dL (75-110); Potassium 4.9 mmol/L (3.4-5.0); Sodium 133 mmol/L (137-145)
--- NOTE | 2020-09-03 21:26 | PC.NURSE ---
Spoke with Dr. Pappas regarding pedal pulses. Weak dopple pedal pulse to right foot, continue to monitor. Notify if goes absent. Start levophed for low blood pressure. No need for bicarb at this time. Continue NS bolus. Start fent drip with versed driop. Do not run propofol.
[2020-09-03 21:28] LABS: Lactic Acid Reflex 3.1 mmol/L (0.7-2.1)
[2020-09-03] MEDS: FAMOTIDINE 20 MG/2 ML VIAL IV PUSH (21:55)
[2020-09-03] MEDS: FENTANYL 2,500MCG/NS250ML(*CRX 2,500 MCG/250 ML BAG IV CONT (21:55)
[2020-09-03 22:36] LABS: Alveolar/Arterial O2 Gradient 580.8 mmHg; Base Excess ABG -11.5 mEq/l (+/-2.0); Carboxyhemoglobin 0.6 % THb (0-2.0); Fractional Inspired Oxygen 100 %; HCO3 ABG 17.3 mEq/l (22.0-26.0); Methemoglobin ABG 0.3 %THb (0-1.5); Oxygen Content ABG 20.6 %vol (16.0-22.0); Oxygen Saturation ABG 92.9 % (95.0-100.0); Oxyhemoglobin 94.8 % THb (90.0-100.0); PCO2 ABG 49.8 mmHg (35.0-45.0); PO2 ABG 82.4 mmHg (80.0-100.0); PO2 FiO2 Ratio Arterial Blood 0.82 %; Reduced Hemoglobin 4.3 %THb (0-5.0); Total Hemoglobin 15.4 g/dL (12.0-18.0)
[2020-09-03 22:37] LABS: Device VENTILATOR; Modified Allen's Test Unable to perform; Site Drawn RIGHT RADIAL; pH ABG 7.159 (7.350-7.450)
[2020-09-03 22:38] LABS: Arterial Blood Gas PEEP 10 cmH2O; Arterial Blood Gas Tidal Volume 500 ml; Arterial Blood Gas Vent Mode CMV; Arterial Blood Gas Ventilator rate 30 /MIN
--- NOTE | 2020-09-03 22:53 | PC.NURSE ---
Spoke with Dr. Pappas regarding blood gas and blood cultures. Start D5 3 amp bicarb drip at 75ml/hr for total of 500ml.
[2020-09-03] MEDS: NOREPINEPHRINE 8 MG/D5W 250 ML 8 MG/250 ML BAG 9.38 MG IV CONT (23:31)
[2020-09-03 23:37] LABS: Glucose Point of Care 215 (65-105)
[2020-09-03 23:37] LABS: Glucose Point of Care 65 (65-105)
[2020-09-04] VITALS (65 sets, daily range): BP systolic 72–180; BP diastolic 47–141; PULSE 93–121; RESP 30–32; TEMP 36.3–37; O2SAT 91–100; BMI 22.1; BMI 24.7
[2020-09-04] MEDS: SODIUM BICARBONATE 8.4% 150 MEQ in DEXTROSE 5% 1,000 ML 950 ML 71.74 MEQ IV CONT (00:12)
[2020-09-04 00:15] LABS: Reflex Lactic Acid Yes or No Add Lactic
[2020-09-04 01:14] LABS: Glucose Point of Care 134 (65-105)
[2020-09-04 02:20] LABS: Alveolar/Arterial O2 Gradient 560.3 mmHg; Base Excess ABG -12.1 mEq/l (+/-2.0); Carboxyhemoglobin 0.6 % THb (0-2.0); Fractional Inspired Oxygen 100 %; HCO3 ABG 17.4 mEq/l (22.0-26.0); Methemoglobin ABG 0.2 %THb (0-1.5); Oxygen Content ABG 20.6 %vol (16.0-22.0); Oxygen Saturation ABG 95.3 % (95.0-100.0); Oxyhemoglobin 95.9 % THb (90.0-100.0); PCO2 ABG 53.5 mmHg (35.0-45.0); PO2 ABG 99.2 mmHg (80.0-100.0); PO2 FiO2 Ratio Arterial Blood 0.99 %; Reduced Hemoglobin 3.3 %THb (0-5.0); Total Hemoglobin 15.2 g/dL (12.0-18.0)
[2020-09-04 02:21] LABS: Arterial Blood Gas PEEP 10 cmH2O; Arterial Blood Gas Tidal Volume 500 ml; Arterial Blood Gas Vent Mode CMV; Arterial Blood Gas Ventilator rate 30 /MIN; Device VENTILATOR; Modified Allen's Test Unable to perform; Site Drawn LEFT BRACHIAL; pH ABG 7.129 (7.350-7.450)
--- NOTE | 2020-09-04 02:32 | PC.NURSE ---
Order for ABG, lactic acid and cheetah ordered by Dr. Shell. Patient is not fluid responsive. Lactic acid pending. Increase Bicarb drip for 100ml/hr. Give 1 amp sodium bicarb push.
[2020-09-04 02:35] LABS: Lactic Acid Reflex 4.8 mmol/L (0.7-2.1)
[2020-09-04] MEDS: SODIUM BICARBONATE 8.4% 50 MEQ/50 ML SYRINGE IV PUSH ×3 (02:42→08:15)
[2020-09-04] MEDS: SODIUM CHLORIDE 0.9% IV 250 ML 999 ML IV CONT (02:42)
[2020-09-04] MEDS: SODIUM BICARBONATE 8.4% 150 MEQ in DEXTROSE 5% 1,000 ML 950 ML 100 MEQ IV CONT ×3 (02:48→23:59)
[2020-09-04] MEDS: VASOPRESSIN INJ 100 UNITS in DEXTROSE 5% 95 ML IV CONT (03:39)
--- NOTE | 2020-09-04 04:08 | PC.NURSE ---
Updated Dr. Pappas regarding bp and labs. May add Epi drip in per protocol if need to maintain adequate BP.
[2020-09-04] MEDS: NOREPINEPHRINE 8 MG/D5W 250 ML 8 MG/250 ML BAG 56.25 MG IV CONT (05:28)
[2020-09-04] MEDS: HYDROCORTISONE SODIUM SUCCINATE 100 MG/2 ML VIAL IV PUSH ×3 (05:32→21:43)
[2020-09-04] MEDS: CENTRAL LINE FLUSH 10 ML IV PUSH ×4 (05:32→21:43)
[2020-09-04 05:35] LABS: Alveolar/Arterial O2 Gradient 484.1 mmHg; Base Excess ABG -8.4 mEq/l (+/-2.0); Carboxyhemoglobin 0.4 % THb (0-2.0); Fractional Inspired Oxygen 90 %; HCO3 ABG 18.9 mEq/l (22.0-26.0); Methemoglobin ABG 0.2 %THb (0-1.5); Oxygen Saturation ABG 97.3 % (95.0-100.0); Oxyhemoglobin 97.4 % THb (90.0-100.0); PCO2 ABG 45.1 mmHg (35.0-45.0); PO2 ABG 111.4 mmHg (80.0-100.0); PO2 FiO2 Ratio Arterial Blood 1.24 %; Total Hemoglobin 14.5 g/dL (12.0-18.0)
[2020-09-04 05:36] LABS: pH ABG 7.239 (7.350-7.450)
[2020-09-04 05:37] LABS: Device VENTILATOR; Modified Allen's Test Unable to perform; Site Drawn RIGHT BRACHIAL
[2020-09-04 05:38] LABS: Arterial Blood Gas PEEP 10 cmH2O; Arterial Blood Gas Tidal Volume 500 ml; Arterial Blood Gas Vent Mode CMV; Arterial Blood Gas Ventilator rate 30 /MIN
[2020-09-04 05:54] LABS: Hematocrit 42.5 % (42.0-52.0); Hemoglobin 14.1 g/dL (14.0-18.0); Mean Corpuscular HGB Conc 33.2 g/dl (32-36); Mean Corpuscular Hemoglobin 35.3 pg (26-34); Mean Corpuscular Volume 106.5 fl (80-100); Platelet Count Result 132 k/mm3 (150-375); Red Blood Count 3.99 M/mm3 (4.6-6.20); Red Cell Distribution Width 14.6 % (11.5-14.5); White Blood Count 25.8 K/mm3 (4.5-10.0)
[2020-09-04 06:13] LABS: Lactic Acid Reflex 5.3 mmol/L (0.7-2.1)
[2020-09-04 06:39] LABS: Band Neutrophils Percent 4 % (0-6); Lymphocytes Absolute Manual 2.58 K/mm3 (1.1-4.5); Monocytes Absolute Manual 14.19 K/mm3 (0.1-0.90); Monocytes Percent Manual 55 % (3-9); Neutrophils Absolute Manual 9.03 K/mm3 (1.3-6.7); Neutrophils Percent Manual 31 % (46-73); Nucleated Red Blood Cells 1 %; Platelet Estimate Decreased (Adequate); Total Cells Counted 100
--- NOTE | 2020-09-04 06:39 | PC.NURSE ---
Spoke with Nadeen (patient's ) and updated on patient current condition. No further questions at this time.
[2020-09-04 07:30] LABS: Albumin Level 2.4 g/dL (3.5-5.1); Alkaline Phosphatase 93 U/L (38-126); Anion Gap 11 mmol/L (8-16); Bilirubin,Total 1.8 mg/dL (0.2-1.3); Blood Urea Nitrogen 54 mg/dL (9-20); Calcium 6.3 mg/dL (8.4-10.2); Carbon Dioxide 22 mmol/L (22-30); Chloride 100 mmol/L (98-107); Glucose 123 mg/dL (75-110); Lipase 14 U/L (23-300); Magnesium 2.1 mg/dL (1.6-2.3); Phosphorus 6.9 mg/dL (2.5-4.5); Potassium 4.6 mmol/L (3.4-5.0); Sodium 133 mmol/L (137-145)
[2020-09-04 07:40] LABS: Estimated CRCL calculation 27 ml/min; Estimated Glomerular Filt Rate 25
[2020-09-04 07:43] LABS: Alanine Aminotransferase 1213 U/L (4-50)
[2020-09-04 07:55] LABS: CRP 35.5 mg/dL (<1.0)
[2020-09-04] MEDS: FAMOTIDINE 20 MG/2 ML VIAL IV PUSH (08:15)
[2020-09-04] MEDS: LACTULOSE 20 GM/30 ML UDC PO (08:15)
[2020-09-04 08:42] LABS: Glucose Point of Care 118 (65-105)
[2020-09-04 08:44] LABS: Aspartate Amino Transferase 1177 U/L (17-59); Ferritin > 2000.00 ng/mL (11.1-264)
[2020-09-04 08:49] LABS: Free T4 Free Thyroxine Reflex 0.38 ng/dL (0.78-2.19)
[2020-09-04] MEDS: CALCIUM GLUC 2,000 MG/NS 100ML 2,000 MG/100 ML BAG 100 MG IVPB (09:11)
[2020-09-04] MEDS: NOREPINEPHRINE 8 MG/D5W 250 ML 8 MG/250 ML BAG 18.75 MG IV CONT (11:00)
--- NOTE | 2020-09-04 12:43 | WPDINTPN ---
Progress Note: A&P Assessment and Plan (1) Acute respiratory failure with hypoxia: Code(s): J96.01 - Acute respiratory failure with hypoxia Status: Acute Assessment and Plan: Intubated on 09/03 at the time of presentation after failure of BIPAP trial -Continue mechanical ventilation, will decrease tidal volumes, continue peep of 10 and wean FiO2 as tolerated -Sedation with fentanyl and propofol - Follow CXR and ABG -continue bronchodilators -continue ceftriaxone, azithromycin and vancomycin (2) Bilateral inguinal hernia without obstruction or gangrene: Qualifiers: Recurrence: non-recurrent Qualified Code(s): K40.20 - Bilateral inguinal hernia, without obstruction or gangrene, not specified as recurrent Code(s): K40.20 - Bilateral inguinal hernia, without obstruction or gangrene, not specified as recurrent Status: Chronic Assessment and Plan: Surgery service has been consulted Serial abdominal exam. NPO for now NG tube to wall suction (3) Lactic acidosis: Code(s): E87.2 - Acidosis Status: Acute Assessment and Plan: Elevated lactic acid likely related to decreased end organ perfusion, will follow lactate levels -patient has been adequately fluid-resuscitated, noninvasive hemodynamic monitoring was performed patient is not fluid responsive -likely related to infection, hypotension, decreased end organ per (4) Acute renal failure: Code(s): N17.9 - Acute kidney failure, unspecified Status: Acute Assessment and Plan: Acute kidney injury likely related to hypovolemia, infection, ATN Continue to monitor renal function, electrolytes and urine output. Continue IVF hydration (5) Sepsis with acute liver failure and septic shock: Code(s): A41.9 - Sepsis, unspecified organism; R65.21 - Severe sepsis with septic shock; K72.01 - Acute and subacute hepatic failure with coma Status: Acute Assessment and Plan: Septic shock, likely related to pneumonia, bacteremia with Gram-positive cocci in clusters in the blood cultures -CT scan of the abdomen pelvis showed necrotizing lobar pneumonia in the lower lobes with mild pneumonia in the right middle lobe -continue Levophed and vasopressin to maintain MAP > 65 mmHg -showed acute kidney injury and shock liver likely related to hypotension and septic shock - blood cultures 09/03 growing gram-positive cocci in chains 2/2 bottles, identification pending -urine culture 09/03 pending -ultrasound showed distended gallbladder with sludge and wall thickening but no visible gallstones. -ultrasound of the scrotum showed: 1. Right inguinal hernia with small bowel reaching the scrotum. Moderate hydrocele.2. Left inguinal hernia with colon in inguinal canal. Small hydrocele.3. Morphologically normal testicles. No torsion. GI will be consulted if LFT doesn't trended down in next 1-2 days (6) COPD (chronic obstructive pulmonary disease) with emphysema: Qualifiers: Emphysema type: panlobular Qualified Code(s): J43.1 - Panlobular emphysema Code(s): J43.9 - Emphysema, unspecified Status: Chronic Assessment and Plan: Continue bronchodilators (7) Community acquired pneumonia, bilateral: Code(s): J18.9 - Pneumonia, unspecified organism Status: Acute Assessment and Plan: Continue broad spectrum abx with ceftriaxone/vancomycin and azithromycin Follow cultures Follow COVID19 testing. Continue precaution until he is ruled out (8) Gangrene of toe of left foot: Code(s): I96 - Gangrene, not elsewhere classified Status: Acute Assessment and Plan: bedside doppler of the LE pulses by nursing staff Discoloration of the toes on bilateral feet likely related to vasopressors, Additional Plan DVT prophylaxis: SCDs, will also had heparin SQ Stress ulcer prophylaxis: Protonix Will hold tube feeds for today as patient
--- NOTE | 2020-09-04 13:01 | PM.PNGS ---
Progress Note: A&P Assessment and Plan (1) Bilateral inguinal hernia without obstruction or gangrene: Qualifiers: Recurrence: non-recurrent Qualified Code(s): K40.20 - Bilateral inguinal hernia, without obstruction or gangrene, not specified as recurrent Code(s): K40.20 - Bilateral inguinal hernia, without obstruction or gangrene, not specified as recurrent Status: Chronic Assessment and Plan: Bilateral inguinal hernias remain soft and reducible. No incarceration/strangulation. No indication for urgent repair and no plans for surgery at this time. No noted complaints of nausea/vomiting prior to intubation. Abdomen soft and non-distended. Clinically, he does not appear to have a small bowel obstruction. NG tube in place while intubated. (2) Septic shock due to undetermined organism: Code(s): A41.9 - Sepsis, unspecified organism; R65.21 - Severe sepsis with septic shock Status: Acute Assessment and Plan: Appears to be secondary to a pulmonary source and not from an intra-abdominal source. WBC up to 25,800 today with continued lactic acidosis. Preliminary blood cultures show growth of gram + cocci in chains. Continue IV antibiotics and IV fluids. Still requiring vasopressor support - wean as tolerated. (3) Community acquired pneumonia, bilateral: Code(s): J18.9 - Pneumonia, unspecified organism Status: Acute Assessment and Plan: On broad-spectrum IV abx and bronchodilators. COVID-19 test pending. Continue airborne, droplet, and contact precautions until ruled out. Management per Computer Numerical Control Operator/primary team. (4) Acute respiratory failure: Qualifiers: Respiratory failure complication: hypoxia Qualified Code(s): J96.01 - Acute respiratory failure with hypoxia Code(s): J96.00 - Acute respiratory failure, unspecified whether with hypoxia or hypercapnia Status: Acute Assessment and Plan: Currently intubated and sedated. Management per Computer Numerical Control Operator. (5) Sepsis with acute liver failure and septic shock: Code(s): A41.9 - Sepsis, unspecified organism; R65.21 - Severe sepsis with septic shock; K72.01 - Acute and subacute hepatic failure with coma Status: Acute (6) Acute renal failure: Code(s): N17.9 - Acute kidney failure, unspecified Status: Acute Assessment and Plan: Creatinine up to 2.6. Due to hypotension/sepsis/ATN. Receiving IV fluid hydration. Continue to monitor. (7) Lactic acidosis: Code(s): E87.2 - Acidosis Status: Acute Assessment and Plan: Initially improved with resuscitation. Lactic acid 5.3 today. Multifactorial. (8) Coagulopathy: Code(s): D68.9 - Coagulation defect, unspecified Status: Acute (9) COPD (chronic obstructive pulmonary disease) with emphysema: Qualifiers: Emphysema type: panlobular Qualified Code(s): J43.1 - Panlobular emphysema Code(s): J43.9 - Emphysema, unspecified Status: Chronic Additional Plan Discussed plan of care with Dr. Dahl. Subjective Subjective Date/Time Seen: 09/04/20 10:01 Interval history: Patient intubated and sedated in the ICU. Currently on levophed 10 mcg/min and vasopressin 0.04 units/min. Review of Systems Review of Systems: ROS unobtainable: Yes unobtainable due to endotracheal tube and unobtainable due to medical condition Exam Const: General: ill appearing and patient obtunded Limitations: language barrier, physical limitations and other limitations (intubated/sedated) Neck: Neck: normal visual inspection ( right IJ central line) Resp: Auscultation: rhonchi and diminished lung sounds Cardio: Rate: tachycardic Rhythm: regular rhythm Other: sinus tachycardia on cardiac cath rn GI: Inspection: normal to inspection and non-distended GI Palp: Yes Soft to palpation Auscultation: Hypoactive bowel sounds present : Penis: Yes normal penis Scrotum: no ecchymosis, not erythematous and inguina
[2020-09-04 13:33] LABS: Glucose Point of Care 75 (65-105)
[2020-09-04 13:57] LABS: Lactic Acid Reflex 6.1 mmol/L (0.7-2.1)
[2020-09-04] MEDS: DEXTROSE 50% 25 GM/50 ML SYRINGE IV PUSH (14:32)
[2020-09-04 14:50] LABS: Glucose Point of Care 69 (65-105)
[2020-09-04 14:50] LABS: Glucose Point of Care 128 (65-105)
[2020-09-04 16:35] LABS: Reflex Lactic Acid Yes or No Add Lactic
[2020-09-04 16:42] LABS: Glucose Point of Care 178 (65-105)
[2020-09-04 16:54] LABS: SARS-CoV-2 RNA PCR Positive
--- NOTE | 2020-09-04 17:14 | WPDGICN ---
Assessment and Plan Assessment and plan (1) Sepsis with acute liver failure and septic shock: Code(s): A41.9 - Sepsis, unspecified organism; R65.21 - Severe sepsis with septic shock; K72.01 - Acute and subacute hepatic failure with coma Status: Acute Assessment and Plan: here with septic shock, bacteremia with respiratory failure, also had COVID-19 elevated liver enzymes due to shock liver, continue to monitor still high lactic level and patient on 2 pressors by income tax auditor (2) Acute respiratory failure: Qualifiers: Respiratory failure complication: hypoxia Qualified Code(s): J96.01 - Acute respiratory failure with hypoxia Code(s): J96.00 - Acute respiratory failure, unspecified whether with hypoxia or hypercapnia Status: Acute Assessment and Plan: intubated he has bacterial pneumonia but also covid (3) COVID-19 virus infection: Code(s): U07.1 - COVID-19 Status: Acute (4) Elevated liver enzymes: Code(s): R74.8 - Abnormal levels of other serum enzymes Status: Acute Assessment and Plan: from septic shock, covid, etc (5) Acute respiratory failure with hypoxia: Code(s): J96.01 - Acute respiratory failure with hypoxia Status: Acute (6) Lactic acidosis: Code(s): E87.2 - Acidosis Status: Acute (7) Acute renal failure: Code(s): N17.9 - Acute kidney failure, unspecified Status: Acute Assessment and Plan: continue to monitor (8) Bacteremia due to Streptococcus pneumoniae: Code(s): R78.81 - Bacteremia; B95.3 - Streptococcus pneumoniae as the cause of diseases classified elsewhere Status: Acute Assessment and Plan: also on iv antibiotics GI Consult Note Consult date/time: 09/04/20 17:14 Reason for consult: shock liver elevated liver enzymes HPI: Andrew Vidal is a 60 year old male who came to hospital with several days of feeling sick (history obtained from records because he is intubated). EMS found his blood sugar to be in the 30s, on arrival he was hypotensive and admitted to ICU, started on pressors with vasopressin and levophed and also intubated. Also had renal failure with creatinine was 2.4. Noted also elevated liver enzymes with total bilirubin 1.6, AST 2155, ALT 1833. It is reported that the patient drinks about 6 beers a day. Patient was found to have bilateral inguinal hernias but exam by surgery with benign findings. CT scan also showed necrotizing lobar pneumonia in the lower lobes. Blood cultures positive for Strept pneumonia and started on iv antibiotics. Liver enzymes high but slowly trending down, repeat [id number]. Also had lactic acid 8 repeat 5. COVID-19 just came back positive. Review of Systems Constitutional: Constitutional: Reports fatigue, Reports lethargy and Reports weakness ENT: Reports Normal hearing present Cardiovascular: Cardiovascular: Denies leg edema Respiratory: Respiratory: Reports cough and Reports dyspnea on exertion Gastrointestinal: Gastrointestinal: Denies hematochezia Neurologic: Reports confusion PMFSH Past Medical History Medical History (Updated 09/04/20 @ 17:47 by Sarabjit Teran MD) Bacteremia due to Streptococcus pneumoniae COPD (chronic obstructive pulmonary disease) with emphysema With emphysema COVID-19 virus infection Inguinal hernia Bilaterally Medical history unknown Surgical History Surgical History (Updated 09/03/20 @ 23:00 by Smiley Grimes NP) Surgical history unknown Family History Family History (Updated 09/03/20 @ 17:46 by Alejandra Mccallum RN) Other Unknown family medical history Social History Social History (Updated 09/03/20 @ 23:09 by Smiley Grimes NP) Social History: The patient is and his states that he drinks about 6 beers a day. 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 There
[2020-09-04 17:36] LABS: Lactic Acid 5.9 mmol/L (0.7-2.1)
--- NOTE | 2020-09-04 17:37 | PM.IMPN ---
Progress Note: A&P Assessment and Plan (1) Acute respiratory failure with hypoxia: Code(s): J96.01 - Acute respiratory failure with hypoxia Status: Acute Assessment and Plan: The patient has been intubated admitted to the intensive care unit. Patient is being treated for possible community-acquired pneumonia. With a Zithromax and Rocephin and vancomycin was added.. Continue with nebulizer treatments. Blood cultures and urine cultures are pending. COVID test is positive. Chest x-ray was read as necrotizing pneumonia. Dexamethasone started but no Remdesivir with elevated LFTs (2) Suspected COVID-19 virus infection: Code(s): Z20.828 - Contact with and (suspected) exposure to other viral communicable diseases Status: Acute Assessment and Plan: Swab positive. Start dexamethasone but as above no remdesivir with elevated LFTs (3) Inguinal hernia: Code(s): K40.90 - Unilateral inguinal hernia, without obstruction or gangrene, not specified as recurrent Status: Chronic Assessment and Plan: Dr. babb has seen the patient evaluated him. This is been a chronic condition. The hernias are soft and reducible. Scrotum is purple and engorged and US today showed hydrocele with hernia (4) COPD (chronic obstructive pulmonary disease) with emphysema: Qualifiers: Emphysema type: panlobular Qualified Code(s): J43.1 - Panlobular emphysema Code(s): J43.9 - Emphysema, unspecified Status: Chronic Assessment and Plan: Continue with nebulizers. (5) Elevated liver enzymes: Code(s): R74.8 - Abnormal levels of other serum enzymes Status: Acute Assessment and Plan: Patient drinks beer every day at least a 6 pack. A liver ultrasound revealed gallbladder sludge with thickened wall but no stones. Ammonia level 50 Hepatitis panel negative Probable shock liver (6) Sepsis with acute liver failure and septic shock: Code(s): A41.9 - Sepsis, unspecified organism; R65.21 - Severe sepsis with septic shock; K72.01 - Acute and subacute hepatic failure with coma Status: Acute Assessment and Plan: Patient's liver enzymes are elevated. The patient is on a azithromycin and Rocephin and vancomycin. Lactic level running consistently elevated Continue on pressors. (7) Acute renal failure: Code(s): N17.9 - Acute kidney failure, unspecified Status: Acute Assessment and Plan: Continue with IV fluids. Creatinine up to 2.6 and probably secondary to pre renal azotemia with shock Subjective Date/time seen: 09/04/20 17:37 Interval history: Date of visit 09/04. 60-year-old presented a with complaints of malaise and fatigue, and found to have marked elevated LFTs, hypotension, and acute respiratory failure necessitating mechanical ventilation with pulmonary infiltrates. Treated for sepsis and placed in ICU Exam Narrative: Exam Narrative: Blood pressure now 90/60 with Levophed and vasopressin pulse 100 mechanical ventilation FiO2 70% with 8 of PEEP Pupils mid position sclera anicteric Neck supple Lungs clear CV tachy no murmurs Abdomen is soft with bilaterally distal inguinal hernias Extremities without edema cool dusky feet with pulse is not palpable Neuro sedated Objective Data Vital Signs Vital Signs: Vital Signs - 24 hr 09/03/20 18:00 09/03/20 19:30 09/03/20 19:45 Temperature Pulse Rate 116 H 117 H 118 H Respiratory Rate 20 29 H 30 H Blood Pressure 112/83 103/77 102/75 Pulse Oximetry 95 95 96 09/03/20 20:00 09/03/20 20:15 09/03/20 20:30 Temperature 37.0 C Pulse Rate 120 H 119 H 119 H Respiratory Rate 30 H 30 H 30 H Blood Pressure 101/76 102/78 88/65 L Pulse Oximetry 96 94 09/03/20 20:38 09/03/20 20:45 09/03/20 20:56 Temperature Pulse Rate 119 H 119 H 117 H Respiratory Rate 30 H 30 H Blood Pressure 77/59 L 88/67 L Pulse Oximetry 98 99 99 09/03/20 20:58 09/03/20 21:00 09/03/20 21:04 T
[2020-09-04] MEDS: hetaSTARCH 6%/NACL 500 ML 250 ML IV CONT (18:15)
[2020-09-04 20:07] LABS: Glucose Point of Care 132 (65-105)
[2020-09-04] MEDS: NOREPINEPHRINE 8 MG/D5W 250 ML 8 MG/250 ML BAG 33.75 MG IV CONT (21:43)
[2020-09-05] VITALS (51 sets, daily range): BP systolic 63–141; BP diastolic 42–107; PULSE 77–93; RESP 32; TEMP 36.4–37.1; O2SAT 90–97; BMI 25.9
[2020-09-05 03:21] LABS: Glucose Point of Care 141 (65-105)
[2020-09-05] MEDS: VASOPRESSIN INJ 100 UNITS in DEXTROSE 5% 95 ML IV CONT (03:37)
[2020-09-05 03:55] LABS: Hematocrit 36.3 % (42.0-52.0); Hemoglobin 12.2 g/dL (14.0-18.0); Immature Platelet Fraction Pct 7.5 % (0.9-11.2); Mean Corpuscular HGB Conc 33.6 g/dl (32-36); Mean Corpuscular Hemoglobin 35.1 pg (26-34); Mean Corpuscular Volume 104.3 fl (80-100); Mean Platelet Volume 11.3 fl (7.4-10.4); Platelet Count Result 66 k/mm3 (150-375); Red Blood Count 3.48 M/mm3 (4.6-6.20); Red Cell Distribution Width 14.9 % (11.5-14.5); White Blood Count 19.4 K/mm3 (4.5-10.0)
[2020-09-05 04:21] LABS: Lactic Acid Reflex 5.9 mmol/L (0.7-2.1)
[2020-09-05 04:22] LABS: Anion Gap 9 mmol/L (8-16); Blood Urea Nitrogen 69 mg/dL (9-20); Calcium 5.8 mg/dL (8.4-10.2); Carbon Dioxide 28 mmol/L (22-30); Chloride 91 mmol/L (98-107); Estimated CRCL calculation 20 ml/min; Estimated Glomerular Filt Rate 18; Glucose 187 mg/dL (75-110); Magnesium 2.1 mg/dL (1.6-2.3); Phosphorus 5.9 mg/dL (2.5-4.5); Potassium 4.4 mmol/L (3.4-5.0); Sodium 128 mmol/L (137-145)
[2020-09-05 04:45] LABS: Alveolar/Arterial O2 Gradient 243.4 mmHg; Base Excess ABG 0.3 mEq/l (+/-2.0); Carboxyhemoglobin 0.3 % THb (0-2.0); Device VENTILATOR; Fractional Inspired Oxygen 50 %; HCO3 ABG 26.1 mEq/l (22.0-26.0); Methemoglobin ABG 0.1 %THb (0-1.5); Modified Allen's Test Unable to perform; Oxygen Content ABG 17.2 %vol (16.0-22.0); Oxygen Saturation ABG 90.4 % (95.0-100.0); Oxyhemoglobin 91.4 % THb (90.0-100.0); PCO2 ABG 46.6 mmHg (35.0-45.0); PO2 ABG 60.7 mmHg (80.0-100.0); PO2 FiO2 Ratio Arterial Blood 1.21 %; Reduced Hemoglobin 8.2 %THb (0-5.0); Site Drawn LEFT RADIAL; Total Hemoglobin 13.4 g/dL (12.0-18.0); pH ABG 7.366 (7.350-7.450)
[2020-09-05 04:46] LABS: Arterial Blood Gas PEEP 10 cmH2O; Arterial Blood Gas Tidal Volume 450 ml; Arterial Blood Gas Vent Mode CMV; Arterial Blood Gas Ventilator rate 32 /MIN
[2020-09-05] MEDS: NOREPINEPHRINE 8 MG/D5W 250 ML 8 MG/250 ML BAG 33.75 MG IV CONT (04:59)
[2020-09-05] MEDS: HYDROCORTISONE SODIUM SUCCINATE 100 MG/2 ML VIAL IV PUSH (05:07)
[2020-09-05] MEDS: CENTRAL LINE FLUSH 10 ML IV PUSH ×4 (06:14→21:22)
[2020-09-05 06:51] LABS: Reflex Lactic Acid Yes or No Add Lactic
[2020-09-05] MEDS: LACTULOSE 20 GM/30 ML UDC PO (08:10)
[2020-09-05] MEDS: DEXAMETHASONE SOD PHOS INJ 4 MG/ML VIAL 6 MG IV PUSH (08:10)
[2020-09-05] MEDS: PANTOPRAZOLE SODIUM IV 40 MG VIAL IV PUSH (08:11)
[2020-09-05 09:35] LABS: Glucose Point of Care 126 (65-105)
[2020-09-05] MEDS: SODIUM BICARBONATE 8.4% 150 MEQ in DEXTROSE 5% 1,000 ML 950 ML 100 MEQ IV CONT ×2 (11:18→21:21)
--- NOTE | 2020-09-05 11:52 | PC.NURSE ---
Update and [id number] on plan of care.
--- NOTE | 2020-09-05 12:11 | PCDIET ---
Nutrition Assessment Complete: Additional Notes: Plans to start Vital 1.5 at 10ml/hr advancing to goal day one of 20ml/hr over 22hrs due to poor intake the last few weeks. If electrolytes remain stable, recommend increasing to goal of 55ml/hr over 22 hrs to provide 1815 kcals, 81g protein, and 924ml of free water with 30 ml water flush q 4hrs. Will track creatinine to alter formula and protein intake if needed. Following daily in ICU.
[2020-09-05 12:15] LABS: Creatinine Urine 104.5 mg/dL; Potassium Urine Random 38.7 meq/L; Sodium Urine Random 14 meq/L
--- NOTE | 2020-09-05 12:31 | PM.CNNEP ---
Assessment and Plan Assessment and plan (1) Acute renal failure: Code(s): N17.9 - Acute kidney failure, unspecified Status: Acute Assessment and Plan: presumably due to ATN from: - pre-renal factors - hemodynamic instability/shock - infection (bacteremia + COVID-19) urine lytes suggest pre-renal azotemia blood culture positive follow-up on renal ultrasound follow repeat labs and UOP remains at high risk for requiring renal replacement therapy (2) Septic shock: Code(s): A41.9 - Sepsis, unspecified organism; R65.21 - Severe sepsis with septic shock Status: Acute Assessment and Plan: due to pneumonia and bactremia pressor support to maintain MAP antibiotics follow trend of hemodynamics (3) Acute respiratory failure with hypoxia: Code(s): J96.01 - Acute respiratory failure with hypoxia Status: Acute Assessment and Plan: due to pneumonia and COVID-19 along with sepsis ventilator support wean as tolerated when more stable (4) COVID-19 virus infection: Code(s): U07.1 - COVID-19 Status: Acute Assessment and Plan: not a candidate for remdesiver (elevated LFTs and creatinine) steroids(?) - with active infection this may be difficult continue supportive therapy (5) Elevated liver enzymes: Code(s): R74.8 - Abnormal levels of other serum enzymes Status: Acute Assessment and Plan: due to shock liver GI following follow trend (6) Lactic acidosis: Code(s): E87.2 - Acidosis Status: Acute Assessment and Plan: quite persistent due to interventions to date presumably due to decreased perfusion to organs and possible bowel ischemia trend levels for now Discussed case with Dr. Martinez Will continue to follow. History of Present Illness Reason for Consult Consult date: 09/05/20 Reason for consult: acute renal failure Chief Complaint Chief complaint: septic shock,acute renal failure,bilateral pneumon History of Present Illness Narrative: All the information I have obtained is from review of the electronic medical record as well as discussion with the medical staff involved in his care as an I am able to obtain any information from the patient due to his current clinical status. The patient is a 60 year old male with an unknown past medical history who presented to [facility] ER with complaints of shortness of breath. Apparently, prior to his presentation to the emergency room, the patient has not been feeling well for last two weeks with complaints of worsening cough, shortness of breath, and dyspnea on exertion. He apparently was quite hypoxic on presentation to the ER and was noted be 70% on room air by pulse oximetry. He was tachypneic as well as tachycardic with the concerns for possible early sepsis.Routine blood test demonstrated an elevated BUN and creatinine by chemistry and a low white blood cell count by CBC. He was noted also to have a significant lactic acidosis as well. Because of his respiratory status BiPAP was in is two did but his respiratory status declined associated with altered mental status that required intubation and placement on mechanical ventilation. A central line was placed as well for IV fluid resuscitation he was subsequently admitted to the intensive care unit for further management and therapy. Since his admission, the patient's overall clinical condition has declined. He remains on full ventilatory support and he has since tested positive for COVID-19. His kidney function has deteriorated as well associated with declining urine output. He has a persistent lactic acidosis despite all interventions to date as well and he is been instituted on vasopressor therapy due to his ongoing hypotension and presumed septic shock. Renal consultation was requested due to his acute kidney injury/ acute renal failure. Unfortuna
[2020-09-05 12:32] LABS: Glucose Point of Care 137 (65-105)
[2020-09-05 13:08] LABS: Glucose Point of Care 112 (65-105)
--- NOTE | 2020-09-05 13:17 | WPDINTPN ---
Progress Note: A&P Assessment and Plan (1) Acute respiratory failure with hypoxia: Code(s): J96.01 - Acute respiratory failure with hypoxia Status: Acute Assessment and Plan: Intubated on 09/03 at the time of presentation after failure of BIPAP trial -Continue mechanical ventilation, will decrease tidal volumes, continue peep of 10 and wean FiO2 as tolerated -Sedation with fentanyl and propofol - Follow CXR and ABG -continue bronchodilators -continue ceftriaxone, azithromycin and vancomycin (2) Bilateral inguinal hernia without obstruction or gangrene: Qualifiers: Recurrence: non-recurrent Qualified Code(s): K40.20 - Bilateral inguinal hernia, without obstruction or gangrene, not specified as recurrent Code(s): K40.20 - Bilateral inguinal hernia, without obstruction or gangrene, not specified as recurrent Status: Chronic Assessment and Plan: Surgery service has been consulted Serial abdominal exam. NPO for now NG tube to wall suction (3) Lactic acidosis: Code(s): E87.2 - Acidosis Status: Acute Assessment and Plan: Elevated lactic acid likely related to decreased end organ perfusion, will follow lactate levels -patient has been adequately fluid-resuscitated, noninvasive hemodynamic monitoring was performed patient is not fluid responsive -likely related to infection, hypotension, decreased end organ perfusion, possible vascular compromise in lower extremities , ischemia of the gut, shock related (4) Acute renal failure: Code(s): N17.9 - Acute kidney failure, unspecified Status: Acute Assessment and Plan: Acute kidney injury likely related to hypovolemia, infection, ATN Continue to monitor renal function, electrolytes and urine output. OFF IVF as pt positive fluid balance Nephrology consulted (5) Sepsis with acute liver failure and septic shock: Code(s): A41.9 - Sepsis, unspecified organism; R65.21 - Severe sepsis with septic shock; K72.01 - Acute and subacute hepatic failure with coma Status: Acute Assessment and Plan: Septic shock, likely related to pneumonia, bacteremia with Gram-positive cocci in clusters in the blood cultures -CT scan of the abdomen pelvis showed necrotizing lobar pneumonia in the lower lobes with mild pneumonia in the right middle lobe -continue Levophed and vasopressin to maintain MAP > 65 mmHg -showed acute kidney injury and shock liver likely related to hypotension and septic shock - blood cultures 09/03 growing strep pneumoniae 2/2 bottles, [place] sensitive -urine culture 09/03 pending - continue ceftriaxone, DC vanc -ultrasound showed distended gallbladder with sludge and wall thickening but no visible gallstones. -ultrasound of the scrotum showed: 1. Right inguinal hernia with small bowel reaching the scrotum. Moderate hydrocele.2. Left inguinal hernia with colon in inguinal canal. Small hydrocele.3. Morphologically normal testicles. No torsion. GI will be consulted if LFT doesn't trended down in next 1-2 days (6) COPD (chronic obstructive pulmonary disease) with emphysema: Qualifiers: Emphysema type: panlobular Qualified Code(s): J43.1 - Panlobular emphysema Code(s): J43.9 - Emphysema, unspecified Status: Chronic Assessment and Plan: Continue bronchodilators (7) Community acquired pneumonia, bilateral: Code(s): J18.9 - Pneumonia, unspecified organism Status: Acute Assessment and Plan: Continue broad spectrum abx with ceftriaxone and azithromycin,. DC vanc Follow cultures Follow COVID19 testing. Continue precaution until he is ruled out (8) Gangrene of toe of left foot: Code(s): I96 - Gangrene, not elsewhere classified Status: Acute Assessment and Plan: bedside doppler of the LE pulses by nursing staff Discoloration of the toes on bilateral feet likely related to vasopressors, Faizan
--- NOTE | 2020-09-05 13:32 | PM.IMPN ---
Progress Note: A&P Assessment and Plan (1) Septic shock: Code(s): A41.9 - Sepsis, unspecified organism; R65.21 - Severe sepsis with septic shock Status: Acute Assessment and Plan: The patient with elevated AST/ALT, ANDRA and low plt. No fevers. WBC elevated to 26K. The patient is on azithromycin and Rocephin. Vancomycin stopped today. Lactic level still running high at 5.9. Follow. Wean off pressors as BP allows. (2) Acute respiratory failure with hypoxia: Code(s): J96.01 - Acute respiratory failure with hypoxia Status: Acute Assessment and Plan: The patient has been intubated and admitted to the intensive care unit. Patient is being treated for community-acquired pneumonia and COVID. On IV abx. Continue with nebulizer treatments. Blood cultures growing strept pneumo. Wean vent as tolerated. (3) Community acquired pneumonia, bilateral: Code(s): J18.9 - Pneumonia, unspecified organism Status: Acute Assessment and Plan: CT showing necrotizing lobar pneumonia in the lower lobes and mild pneumonia in right middle lobe. BCx growing Strept Pneumoniae. Vanco stopped 09/05 but remains on Rocephin and Azithromycin. COVID also contributing to his current illness. Continue supprotive care. (4) Bacteremia due to Streptococcus pneumoniae: Code(s): R78.81 - Bacteremia; B95.3 - Streptococcus pneumoniae as the cause of diseases classified elsewhere Status: Acute Assessment and Plan: As above. (5) COVID-19 virus infection: Code(s): U07.1 - COVID-19 Status: Acute Assessment and Plan: Swab positive 09/03. Started on dexamethasone but no remdesivir with elevated LFTs and ANDRA. Continue supportive care. (6) Inguinal hernia: Code(s): K40.90 - Unilateral inguinal hernia, without obstruction or gangrene, not specified as recurrent Status: Chronic Assessment and Plan: CT scan showing Rt inguinal hernia containing small bowel and appendix with small bowel obstruction. Left inguinal hernia containing nonobstructed sigmoid colon. Dr. Dahl has seen and evaluated the patient. This is been a chronic condition. The hernias are soft and reducible. Scrotum is purple and engorged and scrotal US small bowel reaching the scrotum and moderate right hydrocele. No need for urgent repair. Follow (7) Acute renal failure: Code(s): N17.9 - Acute kidney failure, unspecified Status: Acute Assessment and Plan: Continue with IV fluids. Creatinine up to 3.5 today. Probably secondary to pre renal azotemia with ATN from shock. Urine is muddy brown colored. Doubt post-strept since patient has active infection and renal failure usually develops later. Consider TTP with thrombocytopenia and anemia (but no fevers). Nephrology following. Check smear. (8) Elevated liver enzymes: Code(s): R74.8 - Abnormal levels of other serum enzymes Status: Acute Assessment and Plan: Patient's liver enzymes are elevated with AST 2700 and ALT 2280. Patient drinks beer every day at least a 6 pack. A liver ultrasound revealed gallbladder sludge with thickened wall but no stones. Ammonia level 50. Hepatitis panel negative. Possibly shock liver. Levels trending down. Continue to follow. (9) COPD (chronic obstructive pulmonary disease) with emphysema: Qualifiers: Emphysema type: panlobular Qualified Code(s): J43.1 - Panlobular emphysema Code(s): J43.9 - Emphysema, unspecified Status: Chronic Assessment and Plan: Continue with nebulizers. (10) DVT prophylaxis: Code(s): Z29.9 - Encounter for prophylactic measures, unspecified Status: Acute Assessment and Plan: SCDs; No Lovenox due to acute thrombocytopenia Subjective Date/time seen: 09/05/20 13:32 Interval history: Date of service 09/05 60yo male with COPD here for acute respirator
--- NOTE | 2020-09-05 14:33 | ECHO_ITS ---
Patient Info Name: Andrew Vidal Age: 60 years : 1960 Gender: Male Ht: 68 in Wt: 170 lbs BSA: 1.94 m2 HR: 87 bpm BP: 115 / 95 mmHg Heart Rhythm: Sinus Rhythm Technical Quality: Good Exam Date: 09/05/2020 3:40 PM Exam Location: [facility] Patient Status: Inpatient Admit Date: 09/03/2020 Staff Ordering Physician: Carlee Martinez MD Machine Striper: Juliocesar Sawyer RDCS Attending Provider: James Peoples MD Referring Physician: Juan STEELE; Exam Type: CA echo doppler color flow Study Info Indications R65.21 - Severe sepsis with septic shock Complete two-dimensional, color flow and Doppler transthoracic echocardiogram is performed. History/Risk Factors Covid19+; Septis shock, COPD, ARF, HoTN, EtOH abuse. Summary 1. Left ventricular systolic function is moderately reduced, estimated at 30%. 2. Left ventricular chamber dimension is normal. 3. The left ventricular diastolic function is grade I diastolic dysfunction. 4. Right ventricular chamber dimension is mildly enlarged. 5. Right ventricular systolic function is moderately reduced. 6. There is mild to moderate mitral valve regurgitation. 7. Mild pulmonary hypertension, estimated pulmonary arterial systolic pressure is 37 mmHg. Left Ventricle Left ventricular chamber dimension is normal. Left ventricular systolic function is moderately reduced, estimated at 30%. There is no increased left ventricular wall thickness. The left ventricular diastolic function is grade I diastolic dysfunction. Right Ventricle Right ventricular chamber dimension is mildly enlarged. Right ventricular systolic function is moderately reduced. Left Atria Left atrial chamber dimension is mildly enlarged. Right Atria Right atrial chamber dimension is mildly enlarged. Aortic Valve The aortic valve is not well visualized. There is mild aortic valve sclerosis. There is no aortic valve stenosis. There is no aortic valve regurgitation. Pulmonic Valve The pulmonic valve is not well visualized. There is trace pulmonic regurgitation. Mitral Valve The mitral valve has normal leaflets. There is mild to moderate mitral valve regurgitation. Tricuspid Valve The tricuspid valve leaflets are normal. There is trace tricuspid valve regurgitation. Mild pulmonary hypertension, estimated pulmonary arterial systolic pressure is 37 mmHg. Pericardium/Pleural The pericardium appears normal. There is no pericardial effusion. Inferior Vena Cava Dilated inferior vena cava with no collapse upon inspiration consistent with Empty right atrial pressure, 15 mmHg. Aorta The aortic root size at the sinus of Valsalva is normal. There is mild aortic atherosclerosis. Left Ventricular Outflow Tract Name Value Normal LVOT 2D LVOT Diameter 2.3 cm LVOT Doppler LVOT Peak Gradient 2 mmHg LVOT Mean Gradient 1 mmHg LVOT VTI 10 cm LVOT VTI/AV VTI Ratio 0.6 LVOT Stroke Volume 42 ml LVOT
[2020-09-05] MEDS: NOREPINEPHRINE 8 MG/D5W 250 ML 8 MG/250 ML BAG 22.5 MG IV CONT (15:04)
[2020-09-05] MEDS: SODIUM CHLORIDE 0.9% IV 250 ML 30 ML IV CONT (16:35)
[2020-09-05 17:51] LABS: Glucose Point of Care 125 (65-105)
[2020-09-05 21:32] LABS: Glucose Point of Care 175 (65-105)
[2020-09-05] MEDS: NOREPINEPHRINE 8 MG/D5W 250 ML 8 MG/250 ML BAG 26.25 MG IV CONT (23:42)
[2020-09-06] VITALS (58 sets, daily range): BP systolic 96–132; BP diastolic 43–99; PULSE 82–96; RESP 28–32; TEMP 36.6–37.2; O2SAT 90–97
[2020-09-06 00:15] LABS: Glucose Point of Care 182 (65-105)
[2020-09-06] MEDS: VASOPRESSIN INJ 100 UNITS in DEXTROSE 5% 95 ML IV CONT (02:35)
--- NOTE | 2020-09-06 02:39 | PCRCNOTE ---
Window of time for administration has passed. See next scheduled administration.
[2020-09-06] MEDS: IPRATROPIUM BR 0.02% INH SOLN 0.5 MG/2.5 ML VIAL INHALATION ×4 (02:41→20:46)
[2020-09-06] MEDS: ALBUTEROL SULFATE NEB 2.5 MG/0.5 ML INH 5 MG INHALATION ×4 (02:41→20:46)
[2020-09-06 03:51] LABS: Hemoglobin 12.3 g/dL (14.0-18.0); Immature Platelet Fraction Pct 12.6 % (0.9-11.2); Mean Corpuscular HGB Conc 36.2 g/dl (32-36); Mean Corpuscular Hemoglobin 35.7 pg (26-34); Mean Corpuscular Volume 98.6 fl (80-100); Mean Platelet Volume 12.5 fl (7.4-10.4); Platelet Count Result 52 k/mm3 (150-375); Red Blood Count 3.45 M/mm3 (4.6-6.20); Red Cell Distribution Width 14.1 % (11.5-14.5); White Blood Count 18.9 K/mm3 (4.5-10.0)
[2020-09-06 04:09] LABS: Anion Gap 9 mmol/L (8-16); Blood Urea Nitrogen 77 mg/dL (9-20); Calcium 5.8 mg/dL (8.4-10.2); Carbon Dioxide 35 mmol/L (22-30); Chloride 85 mmol/L (98-107); Estimated CRCL calculation 23 ml/min; Estimated Glomerular Filt Rate 21; Glucose 183 mg/dL (75-110); Magnesium 2.4 mg/dL (1.6-2.3); Phosphorus 3.9 mg/dL (2.5-4.5); Potassium 3.9 mmol/L (3.4-5.0); Sodium 129 mmol/L (137-145)
[2020-09-06 04:14] LABS: Lactic Acid Reflex 5.1 mmol/L (0.7-2.1)
[2020-09-06] MEDS: CENTRAL LINE FLUSH 10 ML IV PUSH ×4 (04:41→19:56)
[2020-09-06 05:16] LABS: Alveolar/Arterial O2 Gradient 308.7 mmHg; Base Excess ABG 8.9 mEq/l (+/-2.0); Carboxyhemoglobin 0.1 % THb (0-2.0); Fractional Inspired Oxygen 60 %; HCO3 ABG 32.7 mEq/l (22.0-26.0); Methemoglobin ABG 0.3 %THb (0-1.5); Oxygen Content ABG 18.1 %vol (16.0-22.0); Oxygen Saturation ABG 95.9 % (95.0-100.0); Oxyhemoglobin 94.3 % THb (90.0-100.0); PCO2 ABG 41.6 mmHg (35.0-45.0); PO2 ABG 73.3 mmHg (80.0-100.0); PO2 FiO2 Ratio Arterial Blood 1.22 %; Reduced Hemoglobin 5.3 %THb (0-5.0); Total Hemoglobin 13.6 g/dL (12.0-18.0)
[2020-09-06 05:17] LABS: pH ABG 7.513 (7.350-7.450)
[2020-09-06 05:18] LABS: Arterial Blood Gas PEEP 10 cmH2O; Arterial Blood Gas Tidal Volume 450 ml; Arterial Blood Gas Vent Mode CMV; Arterial Blood Gas Ventilator rate 32 /MIN; Device VENTILATOR; Modified Allen's Test Unable to perform; Site Drawn RIGHT RADIAL
[2020-09-06 06:47] LABS: Reflex Lactic Acid Yes or No Add Lactic
[2020-09-06] MEDS: DEXAMETHASONE SOD PHOS INJ 4 MG/ML VIAL 6 MG IV PUSH (08:44)
[2020-09-06] MEDS: PANTOPRAZOLE SODIUM IV 40 MG VIAL IV PUSH (08:45)
[2020-09-06] MEDS: LACTULOSE 20 GM/30 ML UDC PO (08:45)
[2020-09-06 09:33] LABS: Lactic Acid 3.9 mmol/L (0.7-2.1)
[2020-09-06 10:11] LABS: Glucose Point of Care 138 (65-105)
--- NOTE | 2020-09-06 11:54 | PCFNICU ---
ICU Rounding Note: Pt current nutrition is Vital 1.5 at 20 ml/hr. Last recorded weight is 80 kg. Bowel Motility:+BM reported 09/05 Labs Reviewed:Glu 138,Cr 3.10,BUN 77,Na 129,Mg 2.4 Meds Noted:Versed, Fentanyl, Levo Additional Notes: Urine output 550 ml, dark in color. Patient had 180 ml residual today, tube feedings of Vital 1.5 at 20 ml/hr with plans to advance to 30 ml/hr. Goal rate on tube feedings 55 ml/hr. Following daily in ICU rounds. Assessing/reassessing every Friday and Friday.
[2020-09-06] MEDS: NOREPINEPHRINE 8 MG/D5W 250 ML 8 MG/250 ML BAG 20.63 MG IV CONT (12:03)
[2020-09-06 12:10] LABS: Glucose Point of Care 134 (65-105)
[2020-09-06 12:51] LABS: Vancomycin Trough 7.8 ug/mL (10.0-20.0)
--- NOTE | 2020-09-06 13:12 | WPDINTPN ---
Progress Note: A&P Assessment and Plan (1) Acute respiratory failure with hypoxia: Code(s): J96.01 - Acute respiratory failure with hypoxia Status: Acute Assessment and Plan: Secondary to strep pneumonia and COVID-19 Intubated on 09/03 at the time of presentation after failure of BIPAP trial -Continue mechanical ventilation, will decrease tidal volumes, continue peep of 10 and wean FiO2 as tolerated currently of 60% -ABG reviewed. Decrease rate to 28 -Sedation with fentanyl and propofol - Follow CXR and ABG -continue bronchodilators -continue ceftriaxone, azithromycin and vancomycin (2) Sepsis with acute liver failure and septic shock: Code(s): A41.9 - Sepsis, unspecified organism; R65.21 - Severe sepsis with septic shock; K72.01 - Acute and subacute hepatic failure with coma Status: Acute Assessment and Plan: Septic shock, likely related to strep pneumonia and bacteremia -CT scan of the abdomen pelvis showed necrotizing lobar pneumonia in the lower lobes with mild pneumonia in the right middle lobe -continue Levophed and vasopressin to maintain MAP > 65 mmHg -showed acute kidney injury and shock liver likely related to hypotension and septic shock - blood cultures 09/03 growing strep pneumoniae 2/2 bottles, brumfiled sensitive. Repeat culture sent on 09/05 per are negative till now -urine culture 09/03 pending - continue ceftriaxone and azithromycin, vancomycin discontinued -ultrasound showed distended gallbladder with sludge and wall thickening but no visible gallstones. -ultrasound of the scrotum showed: 1. Right inguinal hernia with small bowel reaching the scrotum. Moderate hydrocele.2. Left inguinal hernia with colon in inguinal canal. Small hydrocele.3. Morphologically normal testicles. No torsion. -surgery following (3) Lactic acidosis: Code(s): E87.2 - Acidosis Status: Acute Assessment and Plan: Elevated lactic acid likely related to decreased end organ perfusion. -improving. will follow lactate levels -patient has been adequately fluid-resuscitated, noninvasive hemodynamic monitoring was performed patient is not fluid responsive -likely related to infection, hypotension, decreased end organ perfusion, possible vascular compromise in lower extremities , ischemia of the gut, shock related (4) Bilateral inguinal hernia without obstruction or gangrene: Qualifiers: Recurrence: non-recurrent Qualified Code(s): K40.20 - Bilateral inguinal hernia, without obstruction or gangrene, not specified as recurrent Code(s): K40.20 - Bilateral inguinal hernia, without obstruction or gangrene, not specified as recurrent Status: Chronic Assessment and Plan: Surgery service has been consulted Serial abdominal exam. (5) Acute renal failure: Code(s): N17.9 - Acute kidney failure, unspecified Status: Acute Assessment and Plan: Acute kidney injury likely related to hypovolemia, infection, ATN Continue to monitor renal function, electrolytes and urine output. OFF IVF as pt positive fluid balance Nephrology consulted (6) COPD (chronic obstructive pulmonary disease) with emphysema: Qualifiers: Emphysema type: panlobular Qualified Code(s): J43.1 - Panlobular emphysema Code(s): J43.9 - Emphysema, unspecified Status: Chronic Assessment and Plan: Continue bronchodilators (7) Community acquired pneumonia, bilateral: Code(s): J18.9 - Pneumonia, unspecified organism Status: Acute Assessment and Plan: Continue broad spectrum abx with ceftriaxone and azithromycin,. DC vanc Follow cultures Follow COVID19 testing. Continue precaution until he is ruled out (8) Gangrene of toe of left foot: Code(s): I96 - Gangrene, not elsewhere classified Status: Acute Assessment and Plan: Present admission bedside doppler of the LE pulses by nursing staff D
--- NOTE | 2020-09-06 13:35 | P.PNNP_ITS ---
Progress Note: A&P Assessment and Plan (1) Acute renal failure: Code(s): N17.9 - Acute kidney failure, unspecified Status: Acute Assessment and Plan: * presumably due to ATN from: - pre-renal factors - hemodynamic instability/shock - infection (bacteremia + COVID-19) * urine lytes suggest pre-renal azotemia * Renal ultrasound is negative * blood culture positive for strep pneumonia on 09/03. repeat cx from yesterday neg so far. * Urine output only 1L yesterday. * BUN and creatinine are up marginally. * Discussed with Dr. Azar. will reassess tomorrow. (2) Septic shock: Code(s): A41.9 - Sepsis, unspecified organism; R65.21 - Severe sepsis with septic shock Status: Acute Assessment and Plan: * due to pneumonia and bactremia * pressor support to maintain MAP * On azithromycin and ceftriaxone. (3) Acute respiratory failure with hypoxia: Code(s): J96.01 - Acute respiratory failure with hypoxia Status: Acute Assessment and Plan: * due to pneumonia and COVID-19 along with sepsis * ventilator support * wean as tolerated when more stable (4) COVID-19 virus infection: Code(s): U07.1 - COVID-19 Status: Acute Assessment and Plan: * not a candidate for remdesiver (elevated LFTs and creatinine) * On Dexamethasone * continue supportive therapy (5) Elevated liver enzymes: Code(s): R74.8 - Abnormal levels of other serum enzymes Status: Acute Assessment and Plan: * due to shock liver * GI following * Liver enzymes have improved. (6) Lactic acidosis: Code(s): E87.2 - Acidosis Status: Acute Assessment and Plan: * quite persistent due to interventions to date * presumably due to decreased perfusion to organs and possible bowel ischemia * trend levels for now Subjective Date/time seen: 09/06/20 13:35 Interval history: Patient is unable to give a history. On the ventilator and on sedatives. Review of Systems Review of Systems: ROS unobtainable: Yes unobtainable due to medical condition Exam Narrative: Exam Narrative: WDWN in NAD skin no rash head ncat lungs coarse cor reg no rub abd BS+ nontender and soft ext no edema. Objective Data Vital Signs Vital Signs: Vital Signs - 24 hr 09/05/20 14:00 09/05/20 14:35 09/05/20 15:04 Temperature Pulse Rate 86 85 85 Respiratory Rate 32 H Blood Pressure 107/50 L 105/83 Pulse Oximetry 92 94 09/05/20 16:00 09/05/20 16:16 09/05/20 16:30 Temperature 36.5 C Pulse Rate 84 87 86 Respiratory Rate 32 H Blood Pressure 70/51 L 63/50 L 74/42 L Pulse Oximetry 91 09/05/20 16:35 09/05/20 16:53 09/05/20 17:16 Temperature 36.5 C 36.9 C Pulse Rate 86 88 88 Respiratory Rate 32 H 32 H 32 H Blood Pressure 74/42 L 139/60 Pulse Oximetry 91 91 09/05/20 17:27 09/05/20 17:33 09/05/20 17:45 Temperature Pulse Rate 85 87 86 Respiratory Rate Blood Pressure 125/102 H 127/93 H Pulse Oximetry 96 09/05/20 18:00 09/05/20 20:00 09/05/20 20:35 Temperature 37.1 C Pu
--- NOTE | 2020-09-06 13:35 | PM.PNNEP ---
Progress Note: A&P Assessment and Plan (1) Acute renal failure: Code(s): N17.9 - Acute kidney failure, unspecified Status: Acute Assessment and Plan: presumably due to ATN from: - pre-renal factors - hemodynamic instability/shock - infection (bacteremia + COVID-19) urine lytes suggest pre-renal azotemia Renal ultrasound is negative blood culture positive for strep pneumonia on 09/03. repeat cx from yesterday neg so far. Urine output only 1L yesterday. BUN and creatinine are up marginally. Discussed with Dr. Azar. will reassess tomorrow. (2) Septic shock: Code(s): A41.9 - Sepsis, unspecified organism; R65.21 - Severe sepsis with septic shock Status: Acute Assessment and Plan: due to pneumonia and bactremia pressor support to maintain MAP On azithromycin and ceftriaxone. (3) Acute respiratory failure with hypoxia: Code(s): J96.01 - Acute respiratory failure with hypoxia Status: Acute Assessment and Plan: due to pneumonia and COVID-19 along with sepsis ventilator support wean as tolerated when more stable (4) COVID-19 virus infection: Code(s): U07.1 - COVID-19 Status: Acute Assessment and Plan: not a candidate for remdesiver (elevated LFTs and creatinine) On Dexamethasone continue supportive therapy (5) Elevated liver enzymes: Code(s): R74.8 - Abnormal levels of other serum enzymes Status: Acute Assessment and Plan: due to shock liver GI following Liver enzymes have improved. (6) Lactic acidosis: Code(s): E87.2 - Acidosis Status: Acute Assessment and Plan: quite persistent due to interventions to date presumably due to decreased perfusion to organs and possible bowel ischemia trend levels for now Subjective Date/time seen: 09/06/20 13:35 Interval history: Patient is unable to give a history. On the ventilator and on sedatives. Review of Systems Review of Systems: ROS unobtainable: Yes unobtainable due to medical condition Exam Narrative: Exam Narrative: WDWN in NAD skin no rash head ncat lungs coarse cor reg no rub abd BS+ nontender and soft ext no edema. Objective Data Vital Signs Vital Signs: Vital Signs - 24 hr 09/05/20 14:00 09/05/20 14:35 09/05/20 15:04 Temperature Pulse Rate 86 85 85 Respiratory Rate 32 H Blood Pressure 107/50 L 105/83 Pulse Oximetry 92 94 09/05/20 16:00 09/05/20 16:16 09/05/20 16:30 Temperature 36.5 C Pulse Rate 84 87 86 Respiratory Rate 32 H Blood Pressure 70/51 L 63/50 L 74/42 L Pulse Oximetry 91 09/05/20 16:35 09/05/20 16:53 09/05/20 17:16 Temperature 36.5 C 36.9 C Pulse Rate 86 88 88 Respiratory Rate 32 H 32 H 32 H Blood Pressure 74/42 L 139/60 Pulse Oximetry 91 91 09/05/20 17:27 09/05/20 17:33 09/05/20 17:45 Temperature Pulse Rate 85 87 86 Respiratory Rate Blood Pressure 125/102 H 127/93 H Pulse Oximetry 96 09/05/20 18:00 09/05/20 20:00 09/05/20 20:35 Temperature 37.1 C Pulse Rate 85 85 82 Respiratory Rate 32 H 32 H Blood Pressure 141/75 H 120/98 H Pulse Oximetry 93 91 92 09/05/20 21:00 09/05/20 21:23 09/05/20 21:27 Temperature Pulse Rate 83 83 83 Respiratory Rate 32 H 32 H Blood Pressure 119/94 H 109/88 Pulse Oximetry 91 09/05/20 21:30 09/05/20 21:51 09/05/20 22:00 Temperature Pulse Rate 82 84 85 Respiratory Rate 32 H 32 H Blood Pressure 109/79 75/56 L 121/97 H Pulse Oximetry 91 92 09/05/20 22:01 09/05/20 23:00 09/05/20 23:30 Temperature Pulse Rate 84 83 84 Respiratory Rate 32 H 32 H Blood Pressure 121/97 H 113/81 112/60 Pulse Oximetry 93 90 09/05/20 23:37 09/05/20 23:42 09/06/20 00:00 Temperature 37.0 C Pulse Rate 84 83 83 Respiratory Rate 32 H 32 H Blood Pressure 112/60 120/97 H Pulse Oximetry 92 92 09/06/20 00:14 09/06/20 00:15 09/06/20 0
--- NOTE | 2020-09-06 16:58 | PM.IMPN ---
Progress Note: A&P Assessment and Plan (1) Septic shock: Code(s): A41.9 - Sepsis, unspecified organism; R65.21 - Severe sepsis with septic shock Status: Acute Assessment and Plan: The patient with elevated AST/ALT, ANDRA, resp failure and low plt. No fevers. WBC elevated to 26K. The patient is on azithromycin and Rocephin. Vancomycin stopped 09/05. Lactic level still running at 5.1 today but better on recheck. Follow. Wean off pressors as BP allows. Discussed with helmet coverer. (2) Acute respiratory failure with hypoxia: Code(s): J96.01 - Acute respiratory failure with hypoxia Status: Acute Assessment and Plan: The patient has been intubated and admitted to the intensive care unit. Patient is being treated for community-acquired streptococcus pneumonia and COVID. On IV abx. Continue with nebulizer treatments. Blood cultures growing strep pneumo. Wean vent as tolerated. (3) Community acquired pneumonia, bilateral: Code(s): J18.9 - Pneumonia, unspecified organism Status: Acute Assessment and Plan: CT showing necrotizing lobar pneumonia in the lower lobes and mild pneumonia in right middle lobe. BCx growing Strept Pneumoniae. Vanco stopped 09/05 but remains on Rocephin and Azithromycin. COVID also contributing to his current illness. Continue supportive care. (4) Bacteremia due to Streptococcus pneumoniae: Code(s): R78.81 - Bacteremia; B95.3 - Streptococcus pneumoniae as the cause of diseases classified elsewhere Status: Acute Assessment and Plan: As above. (5) COVID-19 virus infection: Code(s): U07.1 - COVID-19 Status: Acute Assessment and Plan: Swab positive 09/03. Started on dexamethasone but no remdesivir with elevated LFTs and ANDRA. Continue supportive care. (6) Inguinal hernia: Code(s): K40.90 - Unilateral inguinal hernia, without obstruction or gangrene, not specified as recurrent Status: Chronic Assessment and Plan: CT scan showing Rt inguinal hernia containing small bowel and appendix with small bowel obstruction. Left inguinal hernia containing nonobstructed sigmoid colon. Dr. Dahl has seen and evaluated the patient. This has been a chronic condition. The hernias are soft and reducible. Scrotum is purple and engorged and scrotal US small bowel reaching the scrotum and moderate right hydrocele. No need for urgent repair. Follow (7) Acute renal failure: Code(s): N17.9 - Acute kidney failure, unspecified Status: Acute Assessment and Plan: Continue with IV fluids. Creatinine down to 3.1 today. Probably secondary to pre renal azotemia with ATN from shock. Urine is clearer. Doubt post-strep since patient has active infection and renal failure usually develops later. Consider TTP with thrombocytopenia and anemia (but no fevers). Nephrology following. (8) Elevated liver enzymes: Code(s): R74.8 - Abnormal levels of other serum enzymes Status: Acute Assessment and Plan: Patient's liver enzymes are elevated with AST 2700 and ALT 2280. Patient drinks beer every day at least a 6 pack. A liver ultrasound revealed gallbladder sludge with thickened wall but no stones. Ammonia level 50. Hepatitis panel negative. Possibly shock liver. Levels trending down. Continue to follow. (9) COPD (chronic obstructive pulmonary disease) with emphysema: Qualifiers: Emphysema type: panlobular Qualified Code(s): J43.1 - Panlobular emphysema Code(s): J43.9 - Emphysema, unspecified Status: Chronic Assessment and Plan: Continue with nebulizers. (10) DVT prophylaxis: Code(s): Z29.9 - Encounter for prophylactic measures, unspecified Status: Acute Assessment and Plan: SCDs; No Lovenox due to acute thrombocytopenia Subjective Date/time seen: 09/06/20 16:58 Interval history: Date of
[2020-09-06 17:34] LABS: Glucose Point of Care 79 (65-105)
[2020-09-06 21:05] LABS: Glucose Point of Care 165 (65-105)
[2020-09-07] VITALS (35 sets, daily range): BP systolic 88–123; BP diastolic 56–90; PULSE 28–99; RESP 18–32; TEMP 36.3–36.9; O2SAT 91–98
[2020-09-07 00:10] LABS: Glucose Point of Care 175 (65-105)
[2020-09-07] MEDS: ALBUTEROL SULFATE NEB 2.5 MG/0.5 ML INH 5 MG INHALATION ×4 (01:53→19:54)
[2020-09-07] MEDS: IPRATROPIUM BR 0.02% INH SOLN 0.5 MG/2.5 ML VIAL INHALATION ×4 (01:53→19:54)
[2020-09-07 02:57] LABS: Hematocrit 31.7 % (42.0-52.0); Hemoglobin 11.1 g/dL (14.0-18.0); Immature Platelet Fraction Pct 16.6 % (0.9-11.2); Mean Corpuscular Hemoglobin 34.9 pg (26-34); Mean Corpuscular Volume 99.7 fl (80-100); Mean Platelet Volume 13.1 fl (7.4-10.4); Platelet Count Result 38 k/mm3 (150-375); Red Blood Count 3.18 M/mm3 (4.6-6.20); White Blood Count 11.2 K/mm3 (4.5-10.0)
[2020-09-07 03:09] LABS: Alanine Aminotransferase 327 U/L (4-50); Albumin Level 2.3 g/dL (3.5-5.1); Alkaline Phosphatase 115 U/L (38-126); Aspartate Amino Transferase 299 U/L (17-59); Bilirubin,Total 2.5 mg/dL (0.2-1.3); Blood Urea Nitrogen 81 mg/dL (9-20); Calcium 6.1 mg/dL (8.4-10.2); Carbon Dioxide > 40 mmol/L (22-30); Chloride 86 mmol/L (98-107); Estimated CRCL calculation 23 ml/min; Estimated Glomerular Filt Rate 21; Glucose 178 mg/dL (75-110); Lactic Acid Reflex 3.5 mmol/L (0.7-2.1); Magnesium 2.6 mg/dL (1.6-2.3); Potassium 4.1 mmol/L (3.4-5.0); Sodium 131 mmol/L (137-145)
[2020-09-07 04:54] LABS: Alveolar/Arterial O2 Gradient 247.9 mmHg; Base Excess ABG 7.9 mEq/l (+/-2.0); Carboxyhemoglobin 0.3 % THb (0-2.0); Fractional Inspired Oxygen 50 %; HCO3 ABG 32.1 mEq/l (22.0-26.0); Methemoglobin ABG 0.3 %THb (0-1.5); Oxygen Content ABG 15.2 %vol (16.0-22.0); Oxygen Saturation ABG 92.7 % (95.0-100.0); Oxyhemoglobin 89.7 % THb (90.0-100.0); PCO2 ABG 43.1 mmHg (35.0-45.0); PO2 ABG 60.1 mmHg (80.0-100.0); Reduced Hemoglobin 9.7 %THb (0-5.0)
[2020-09-07 04:55] LABS: Device VENTILATOR; Modified Allen's Test Pass; Site Drawn RIGHT RADIAL
[2020-09-07 04:56] LABS: Arterial Blood Gas PEEP 10 cmH2O; Arterial Blood Gas Tidal Volume 450 ml; Arterial Blood Gas Vent Mode CMV; Arterial Blood Gas Ventilator rate 28 /MIN
[2020-09-07 05:53] LABS: Reflex Lactic Acid Yes or No Add Lactic
[2020-09-07] MEDS: CENTRAL LINE FLUSH 10 ML IV PUSH ×4 (06:35→20:45)
[2020-09-07] MEDS: NOREPINEPHRINE 8 MG/D5W 250 ML 8 MG/250 ML BAG 3.75 MG IV CONT (08:00)
[2020-09-07] MEDS: LACTULOSE 20 GM/30 ML UDC PO (09:03)
[2020-09-07] MEDS: DEXAMETHASONE SOD PHOS INJ 4 MG/ML VIAL 6 MG IV PUSH (09:03)
[2020-09-07] MEDS: PANTOPRAZOLE SODIUM IV 40 MG VIAL IV PUSH (09:03)
[2020-09-07 11:01] LABS: Hypochromasia 1+ (NORMAL); Large Platelets Present; Lymphocytes Absolute Manual 0.22 K/mm3 (1.1-4.5); Monocytes Absolute Manual 0.78 K/mm3 (0.1-0.90); Monocytes Percent Manual 7 % (3-9); Neutrophils Percent Manual 91 % (46-73); Platelet Estimate Decreased (Adequate); Target Cells 1+ (NORMAL); Total Cells Counted 100
[2020-09-07 11:40] LABS: Glucose Point of Care 185 (65-105)
[2020-09-07] MEDS: acetaZOLAMIDE SODIUM FOR INJ 500 MG VIAL 250 MG IV PUSH (11:47)
[2020-09-07] MEDS: WATER, STERILE FOR INJECTION 10 ML VIAL XX (12:08)
--- NOTE | 2020-09-07 12:22 | PCDIET ---
ICU Rounding Note: Pt current nutrition is Vital 1.5 at 30ml/hr, plans to increase to 40ml/hr today Current Wt: 82.5kg, up from 74.2kg on assessment (-581 I/O) Bowel Motility: BM + (diarrhea-lactulose noted) Labs Reviewed:Hgb 11.1, Hct 31.7, Albumin 2.3, Na 131, Mg 2.6, bilirubin 2.5, GFR 21, BUN 81, Cr 3.10, Glucose 178, 3.5 lactic acid Meds Noted: Lactulose, albuterol, Decadron, Zithromax, fentanyl, Protonix, versed, Levophed Additional Notes: Pt tolerating Vital 1.5 at 30ml/hr. Plans to increase to 40ml/hr to provide 1320kcals, 59g protein, and 672ml of free water. Creatinine trending down, but urine is dark per MD. Water flush at 30ml q 4hrs currently appropriate. Recommend continuing to increase to final goal of Vital 1.5 @ 55ml/hr tomorrow if appropriate. At goal, pt will get 1815kcals, 81g protein,and 924ml of free water. Red coccyx noted. Following daily in ICU rounds. Assessing/reassessing T/Sat.
--- NOTE | 2020-09-07 12:40 | P.PNNP_ITS ---
Progress Note: A&P Assessment and Plan (1) Acute renal failure: Code(s): N17.9 - Acute kidney failure, unspecified Status: Acute Assessment and Plan: * presumably due to ATN from: - pre-renal factors - hemodynamic instability/shock - infection (bacteremia + COVID-19) * urine lytes suggest pre-renal azotemia * Renal ultrasound is negative * blood culture positive for strep pneumonia on 09/03. repeat cx from 09/05 show no growth to date * Urine output 1700 yesterday. * BUN and creatinine are fairly stable. * Discussed with Dr. Azar. will reassess tomorrow. (2) Septic shock: Code(s): A41.9 - Sepsis, unspecified organism; R65.21 - Severe sepsis with septic shock Status: Acute Assessment and Plan: * due to pneumonia and bactremia * pressor support to maintain MAP * On azithromycin and ceftriaxone. (3) Acute respiratory failure with hypoxia: Code(s): J96.01 - Acute respiratory failure with hypoxia Status: Acute Assessment and Plan: * due to pneumonia and COVID-19 along with sepsis * ventilator support (4) COVID-19 virus infection: Code(s): U07.1 - COVID-19 Status: Acute Assessment and Plan: * not a candidate for remdesiver (elevated LFTs and creatinine) * On Dexamethasone * continue supportive therapy (5) Elevated liver enzymes: Code(s): R74.8 - Abnormal levels of other serum enzymes Status: Acute Assessment and Plan: * due to shock liver * GI following * Liver enzymes continue to improve. (6) Lactic acidosis: Code(s): E87.2 - Acidosis Status: Acute Assessment and Plan: * quite persistent due to interventions to date * presumably due to decreased perfusion to organs and possible bowel ischemia * trend levels for now * Anion gap is somewhat low. Subjective Date/time seen: 09/07/20 12:40 Interval history: Patient is unable to give a history. On the ventilator and on sedatives. Hemodynamically he is improved. He is making some urine Review of Systems Review of Systems: ROS unobtainable: Yes unobtainable due to medical condition Exam Narrative: Exam Narrative: WDWN in NAD skin no rash head ncat lungs coarse bilaterally cor reg no rub abd BS+ nontender and soft ext no edema or cyanosis Objective Data Vital Signs Vital Signs: Vital Signs - 24 hr 09/06/20 13:02 09/06/20 13:03 09/06/20 13:04 Temperature Pulse Rate 90 91 89 Respiratory Rate 29 H 28 H Blood Pressure 118/80 Pulse Oximetry 09/06/20 13:49 09/06/20 13:54 09/06/20 14:00 Temperature Pulse Rate 85 86 87 Respiratory Rate 28 H 28 H Blood Pressure 101/62 Pulse Oximetry 93 91 09/06/20 14:01 09/06/20 15:00 09/06/20 16:00 Temperature 37.2 C Pulse Rate 85 88 90 Respiratory Rate 28 H 28 H Blood Pressure 124/76 126/94 H Pulse Oximetry 92 09/06/20 16:37 09/06/20 17:50 09/06/20 17:51 Temperature 37.2 C Pulse Rate 92 90 90 Respiratory Rate 28 H Blood Pressure 122/98 H Pulse Oximetry 92 91 09/06/20 18:00 09/06/20 19:30
--- NOTE | 2020-09-07 12:40 | PM.PNNEP ---
Progress Note: A&P Assessment and Plan (1) Acute renal failure: Code(s): N17.9 - Acute kidney failure, unspecified Status: Acute Assessment and Plan: presumably due to ATN from: - pre-renal factors - hemodynamic instability/shock - infection (bacteremia + COVID-19) urine lytes suggest pre-renal azotemia Renal ultrasound is negative blood culture positive for strep pneumonia on 09/03. repeat cx from 09/05 show no growth to date Urine output 1700 yesterday. BUN and creatinine are fairly stable. Discussed with Dr. Azar. will reassess tomorrow. (2) Septic shock: Code(s): A41.9 - Sepsis, unspecified organism; R65.21 - Severe sepsis with septic shock Status: Acute Assessment and Plan: due to pneumonia and bactremia pressor support to maintain MAP On azithromycin and ceftriaxone. (3) Acute respiratory failure with hypoxia: Code(s): J96.01 - Acute respiratory failure with hypoxia Status: Acute Assessment and Plan: due to pneumonia and COVID-19 along with sepsis ventilator support (4) COVID-19 virus infection: Code(s): U07.1 - COVID-19 Status: Acute Assessment and Plan: not a candidate for remdesiver (elevated LFTs and creatinine) On Dexamethasone continue supportive therapy (5) Elevated liver enzymes: Code(s): R74.8 - Abnormal levels of other serum enzymes Status: Acute Assessment and Plan: due to shock liver GI following Liver enzymes continue to improve. (6) Lactic acidosis: Code(s): E87.2 - Acidosis Status: Acute Assessment and Plan: quite persistent due to interventions to date presumably due to decreased perfusion to organs and possible bowel ischemia trend levels for now Anion gap is somewhat low. Subjective Date/time seen: 09/07/20 12:40 Interval history: Patient is unable to give a history. On the ventilator and on sedatives. Hemodynamically he is improved. He is making some urine Review of Systems Review of Systems: ROS unobtainable: Yes unobtainable due to medical condition Exam Narrative: Exam Narrative: WDWN in NAD skin no rash head ncat lungs coarse bilaterally cor reg no rub abd BS+ nontender and soft ext no edema or cyanosis Objective Data Vital Signs Vital Signs: Vital Signs - 24 hr 09/06/20 13:02 09/06/20 13:03 09/06/20 13:04 Temperature Pulse Rate 90 91 89 Respiratory Rate 29 H 28 H Blood Pressure 118/80 Pulse Oximetry 09/06/20 13:49 09/06/20 13:54 09/06/20 14:00 Temperature Pulse Rate 85 86 87 Respiratory Rate 28 H 28 H Blood Pressure 101/62 Pulse Oximetry 93 91 09/06/20 14:01 09/06/20 15:00 09/06/20 16:00 Temperature 37.2 C Pulse Rate 85 88 90 Respiratory Rate 28 H 28 H Blood Pressure 124/76 126/94 H Pulse Oximetry 92 09/06/20 16:37 09/06/20 17:50 09/06/20 17:51 Temperature 37.2 C Pulse Rate 92 90 90 Respiratory Rate 28 H Blood Pressure 122/98 H Pulse Oximetry 92 91 09/06/20 18:00 09/06/20 19:30 09/06/20 19:38 Temperature Pulse Rate 96 88 88 Respiratory Rate 28 H Blood Pressure 120/88 114/83 Pulse Oximetry 09/06/20 20:00 09/06/20 20:47 09/06/20 20:48 Temperature 36.9 C Pulse Rate 90 90 90 Respiratory Rate 28 H 28 H Blood Pressure 116/86 Pulse Oximetry 96 93 09/06/20 20:55 09/06/20 21:00 09/06/20 22:00 Temperature Pulse Rate 87 88 92 Respiratory Rate 28 H 28 H 28 H Blood Pressure 116/83 121/84 Pulse Oximetry 94 94 09/06/20 23:17 09/06/20 23:30 09/06/20 23:40 Temperature Pulse Rate 92 90 87 Respiratory Rate 28 H Blood Pressure 110/85 Pulse Oximetry 94 94 09/06/20 23:50 09/07/20 00:00 09/07/20 01:53 Temperature 36.9 C Pulse Rate 85 86 92 Respiratory Rate 32 H 28 H 28 H Blood Pressure 112/82 Pulse Oximetry 92 09/07/20 01:54 09/07/20 02:00
--- NOTE | 2020-09-07 12:49 | WPDINTPN ---
Progress Note: A&P Assessment and Plan (1) Acute respiratory failure with hypoxia: Code(s): J96.01 - Acute respiratory failure with hypoxia Status: Acute Assessment and Plan: Secondary to strep pneumonia and COVID-19 Intubated on 09/03 at the time of presentation after failure of BIPAP trial -Continue mechanical ventilation, will decrease tidal volumes, continue peep of 10 and wean FiO2 as tolerated currently of 60% -ABG reviewed. Decrease rate to 24 -advance ET tube by 2 cm -Sedation with fentanyl and Versed - Follow CXR and ABG -continue bronchodilators -continue ceftriaxone, azithromycin -will give the dose of Diamox today (2) COVID-19 virus infection: Code(s): U07.1 - COVID-19 Status: Acute Assessment and Plan: Continue dexamethasone Check ferritin and LDH level in the morning (3) Sepsis with acute liver failure and septic shock: Code(s): A41.9 - Sepsis, unspecified organism; R65.21 - Severe sepsis with septic shock; K72.01 - Acute and subacute hepatic failure with coma Status: Acute Assessment and Plan: Septic shock, likely related to strep pneumonia and bacteremia -CT scan of the abdomen pelvis showed necrotizing lobar pneumonia in the lower lobes with mild pneumonia in the right middle lobe -patient was on Levophed and vasopressin to maintain MAP > 65 mmHg -vasopressin was weaned off last night. Levophed was pause this morning. Continue monitor if patient stays off vasopressors -showed acute kidney injury and shock liver likely related to hypotension and septic shock - blood cultures 09/03 growing strep pneumoniae 2/2 bottles, brumfield sensitive. Repeat culture sent on 09/05 per are negative till now -urine culture 09/03 pending -which could be colonization - continue ceftriaxone and azithromycin, vancomycin discontinued -liver enzymes are improving -ultrasound showed distended gallbladder with sludge and wall thickening but no visible gallstones. -ultrasound of the scrotum showed: 1. Right inguinal hernia with small bowel reaching the scrotum. Moderate hydrocele.2. Left inguinal hernia with colon in inguinal canal. Small hydrocele.3. Morphologically normal testicles. No torsion. -surgery following (4) Lactic acidosis: Code(s): E87.2 - Acidosis Status: Acute Assessment and Plan: Elevated lactic acid likely related to decreased end organ perfusion. -improving. will follow lactate levels -patient has been adequately fluid-resuscitated, noninvasive hemodynamic monitoring was performed patient is not fluid responsive -likely related to infection, hypotension, decreased end organ perfusion, possible vascular compromise in lower extremities , ischemia of the gut, shock related (5) Bilateral inguinal hernia without obstruction or gangrene: Qualifiers: Recurrence: non-recurrent Qualified Code(s): K40.20 - Bilateral inguinal hernia, without obstruction or gangrene, not specified as recurrent Code(s): K40.20 - Bilateral inguinal hernia, without obstruction or gangrene, not specified as recurrent Status: Chronic Assessment and Plan: Surgery service has been consulted Serial abdominal exam. (6) Acute renal failure: Code(s): N17.9 - Acute kidney failure, unspecified Status: Acute Assessment and Plan: Acute kidney injury likely related to hypovolemia, infection, ATN Continue to monitor renal function, electrolytes and urine output. OFF IVF as pt positive fluid balance Nephrology following Creatinine remains stable time Diamox 250 mg IV x1 for metabolic alkalosis (7) COPD (chronic obstructive pulmonary disease) with emphysema: Qualifiers: Emphysema type: panlobular Qualified Code(s): J43.1 - Panlobular emphysema Code(s): J43.9 - Emphysema, unspecified Status: Chronic Assessment and Plan: Continue bronchodilators (8) Community acquired pneumonia, zion
[2020-09-07 14:04] LABS: Lactate Dehydrogenase 2186 U/L (313-618)
[2020-09-07 15:59] LABS: Ferritin > 2000.00 ng/mL (11.1-264)
--- NOTE | 2020-09-07 18:19 | PM.IMPN ---
Progress Note: A&P Assessment and Plan (1) Septic shock: Code(s): A41.9 - Sepsis, unspecified organism; R65.21 - Severe sepsis with septic shock Status: Acute Assessment and Plan: The patient with elevated AST/ALT, ANDRA, resp failure and low plt. No fevers. WBC elevated to 26K. The patient is on azithromycin and Rocephin. Vancomycin stopped 09/05. Lactic level down to 3.5. Able to wean pressors today. (2) Acute respiratory failure with hypoxia: Code(s): J96.01 - Acute respiratory failure with hypoxia Status: Acute Assessment and Plan: The patient has been intubated and admitted to the intensive care unit. Patient is being treated for community-acquired streptococcus pneumonia and COVID. On IV abx. Continue with nebulizer treatments. Blood cultures growing strep pneumo. Repeat BCx NGTD. Wean vent as tolerated. (3) Community acquired pneumonia, bilateral: Code(s): J18.9 - Pneumonia, unspecified organism Status: Acute Assessment and Plan: CT showing necrotizing lobar pneumonia in the lower lobes and mild pneumonia in right middle lobe. BCx growing Strept Pneumoniae. Vanco stopped 09/05 but remains on Rocephin and Azithromycin. COVID also contributing to his current illness. Continue supportive care. (4) Bacteremia due to Streptococcus pneumoniae: Code(s): R78.81 - Bacteremia; B95.3 - Streptococcus pneumoniae as the cause of diseases classified elsewhere Status: Acute Assessment and Plan: As above. (5) COVID-19 virus infection: Code(s): U07.1 - COVID-19 Status: Acute Assessment and Plan: Swab positive 09/03. Started on dexamethasone but no remdesivir with elevated LFTs and ANDRA. Continue supportive care. (6) Inguinal hernia: Code(s): K40.90 - Unilateral inguinal hernia, without obstruction or gangrene, not specified as recurrent Status: Chronic Assessment and Plan: CT scan showing Rt inguinal hernia containing small bowel and appendix with small bowel obstruction. Left inguinal hernia containing nonobstructed sigmoid colon. Dr. Dahl has seen and evaluated the patient. This has been a chronic condition. The hernias are soft and reducible. Scrotum is engorged and scrotal US small bowel reaching the scrotum and moderate right hydrocele. No need for urgent repair. Follow (7) Acute renal failure: Code(s): N17.9 - Acute kidney failure, unspecified Status: Acute Assessment and Plan: Continue with IV fluids. Creatinine down to 3.1 and stable today. Probably secondary to pre renal azotemia with ATN from shock. Urine is clearer. Nephrology following. (8) Elevated liver enzymes: Code(s): R74.8 - Abnormal levels of other serum enzymes Status: Acute Assessment and Plan: Patient's liver enzymes are elevated with AST 2700 and ALT 2280. Patient drinks beer every day at least a 6 pack. A liver ultrasound revealed gallbladder sludge with thickened wall but no stones. Ammonia level 50. Hepatitis panel negative. Possibly shock liver. Levels trending down. Continue to follow. (9) COPD (chronic obstructive pulmonary disease) with emphysema: Qualifiers: Emphysema type: panlobular Qualified Code(s): J43.1 - Panlobular emphysema Code(s): J43.9 - Emphysema, unspecified Status: Chronic Assessment and Plan: Continue with nebulizers. (10) DVT prophylaxis: Code(s): Z29.9 - Encounter for prophylactic measures, unspecified Status: Acute Assessment and Plan: SCDs; No Lovenox due to acute thrombocytopenia (11) Thrombocytopenia: Code(s): D69.6 - Thrombocytopenia, unspecified Status: Acute Assessment and Plan: Blood count normal on admission but has dropped to 38,000 today. Most likely consumptive. TTP seems less likely. Follow closely. Subjective Date/time seen: 1
[2020-09-07 20:50] LABS: Glucose Point of Care 127 (65-105)
[2020-09-07 23:52] LABS: Glucose Point of Care 144 (65-105)
[2020-09-08] VITALS (41 sets, daily range): BP systolic 95–120; BP diastolic 69–89; PULSE 79–109; RESP 18–27; TEMP 36.2–36.8; O2SAT 90–100
[2020-09-08] MEDS: ALBUTEROL SULFATE NEB 2.5 MG/0.5 ML INH 5 MG INHALATION ×4 (01:44→20:12)
[2020-09-08] MEDS: IPRATROPIUM BR 0.02% INH SOLN 0.5 MG/2.5 ML VIAL INHALATION ×4 (01:44→20:12)
[2020-09-08 04:47] LABS: Alveolar/Arterial O2 Gradient 336.4 mmHg; Base Excess ABG 4.7 mEq/l (+/-2.0); Carboxyhemoglobin 0.3 % THb (0-2.0); Fractional Inspired Oxygen 65 %; HCO3 ABG 29.4 mEq/l (22.0-26.0); Methemoglobin ABG 0.3 %THb (0-1.5); Oxyhemoglobin 94.4 % THb (90.0-100.0); PCO2 ABG 44.3 mmHg (35.0-45.0); PO2 ABG 78.9 mmHg (80.0-100.0); PO2 FiO2 Ratio Arterial Blood 1.21 %
[2020-09-08 04:48] LABS: Device VENTILATOR; Modified Allen's Test Pass; Site Drawn LEFT RADIAL
[2020-09-08 04:49] LABS: Arterial Blood Gas PEEP 10 cmH2O; Arterial Blood Gas Tidal Volume 450 ml; Arterial Blood Gas Vent Mode CMV; Arterial Blood Gas Ventilator rate 24 /MIN
[2020-09-08] MEDS: CENTRAL LINE FLUSH 10 ML IV PUSH ×4 (05:09→20:42)
[2020-09-08 06:25] LABS: Glucose Point of Care 174 (65-105)
[2020-09-08 06:30] LABS: Hematocrit 32.2 % (42.0-52.0); Hemoglobin 11.3 g/dL (14.0-18.0); Immature Platelet Fraction Pct 20.6 % (0.9-11.2); Mean Corpuscular HGB Conc 35.1 g/dl (32-36); Mean Corpuscular Hemoglobin 35.3 pg (26-34); Mean Corpuscular Volume 100.6 fl (80-100); Mean Platelet Volume 13.7 fl (7.4-10.4); Platelet Count Result 55 k/mm3 (150-375); White Blood Count 16.6 K/mm3 (4.5-10.0)
[2020-09-08 06:42] LABS: Lactic Acid Reflex 2.5 mmol/L (0.7-2.1)
[2020-09-08 06:45] LABS: Alanine Aminotransferase 343 U/L (4-50); Albumin Level 2.3 g/dL (3.5-5.1); Alkaline Phosphatase 163 U/L (38-126); Anion Gap 6 mmol/L (8-16); Aspartate Amino Transferase 492 U/L (17-59); Bilirubin,Total 2.5 mg/dL (0.2-1.3); Blood Urea Nitrogen 79 mg/dL (9-20); Calcium 6.7 mg/dL (8.4-10.2); Carbon Dioxide 36 mmol/L (22-30); Chloride 94 mmol/L (98-107); Estimated CRCL calculation 30 ml/min; Estimated Glomerular Filt Rate 29; Glucose 168 mg/dL (75-110); Magnesium 2.6 mg/dL (1.6-2.3); Phosphorus 3.3 mg/dL (2.5-4.5); Potassium 3.4 mmol/L (3.4-5.0); Sodium 136 mmol/L (137-145)
--- NOTE | 2020-09-08 08:58 | P.PNNP_ITS ---
Progress Note: A&P Assessment and Plan (1) Acute renal failure: Code(s): N17.9 - Acute kidney failure, unspecified Status: Acute Assessment and Plan: * presumably due to ATN from: - pre-renal factors - hemodynamic instability/shock - infection (bacteremia + COVID-19) * urine lytes suggest pre-renal azotemia * Renal ultrasound is negative * blood culture positive for strep pneumonia on 09/03. repeat cx from 09/05 show no growth to date * Urine output 3700 yesterday. * It looks like he is recovering. * discussed wiwth dr Martinez (2) Septic shock: Code(s): A41.9 - Sepsis, unspecified organism; R65.21 - Severe sepsis with septic shock Status: Acute Assessment and Plan: * due to pneumonia and bactremia * pressor support to maintain MAP * On azithromycin and ceftriaxone. (3) Acute respiratory failure with hypoxia: Code(s): J96.01 - Acute respiratory failure with hypoxia Status: Acute Assessment and Plan: * due to pneumonia and COVID-19 along with sepsis * ventilator support (4) COVID-19 virus infection: Code(s): U07.1 - COVID-19 Status: Acute Assessment and Plan: * not a candidate for remdesiver (elevated LFTs and creatinine) * On Dexamethasone * continue supportive therapy (5) Elevated liver enzymes: Code(s): R74.8 - Abnormal levels of other serum enzymes Status: Acute Assessment and Plan: * due to shock liver * GI following * Liver enzymes continue to improve. (6) Lactic acidosis: Code(s): E87.2 - Acidosis Status: Acute Assessment and Plan: * quite persistent due to interventions to date * presumably due to decreased perfusion to organs and possible bowel ischemia * trend levels for now * Anion gap is somewhat low. Subjective Date/time seen: 09/08/20 08:58 Interval history: Patient is unable to give a history. On the ventilator and on sedatives. Hemodynamically he is improved. However he is still on some pressors. He is making some urine Review of Systems Review of Systems: ROS unobtainable: Yes unobtainable due to medical condition Exam Narrative: Exam Narrative: WDWN in NAD skin no rash or subcu nodules head ncat lungs coarse bilaterally cor reg no rub or gallop abd BS+ nontender and soft ext no edema or cyanosis Objective Data Vital Signs Vital Signs: Vital Signs - 24 hr 09/07/20 09:00 09/07/20 09:06 09/07/20 10:00 Temperature Pulse Rate 85 87 95 Respiratory Rate 28 H 25 H Blood Pressure 122/90 95/65 L Pulse Oximetry 92 93 09/07/20 10:47 09/07/20 12:00 09/07/20 13:36 Temperature 36.3 C L Pulse Rate 88 93 95 Respiratory Rate 24 H 18 Blood Pressure 92/68 L Pulse Oximetry 91 95 09/07/20 13:40 09/07/20 13:42 09/07/20 14:00 Temperature Pulse Rate 93 94 94 Respiratory Rate 23 H 24 H Blood Pressure 99/73 L Pulse Oximetry 91 95 09/07/20 16:00 09/07/20 18:00 09/07/20 18:07 Temperature 36.3 C L Pulse Rate 94 91 91 Respiratory Rate 24 H 24 H Blood Pressure 113/79 112/83 Pulse Oximetry 97 97 97
--- NOTE | 2020-09-08 08:58 | PM.PNNEP ---
Progress Note: A&P Assessment and Plan (1) Acute renal failure: Code(s): N17.9 - Acute kidney failure, unspecified Status: Acute Assessment and Plan: presumably due to ATN from: - pre-renal factors - hemodynamic instability/shock - infection (bacteremia + COVID-19) urine lytes suggest pre-renal azotemia Renal ultrasound is negative blood culture positive for strep pneumonia on 09/03. repeat cx from 09/05 show no growth to date Urine output 3700 yesterday. It looks like he is recovering. discussed wiwth dr Martinez (2) Septic shock: Code(s): A41.9 - Sepsis, unspecified organism; R65.21 - Severe sepsis with septic shock Status: Acute Assessment and Plan: due to pneumonia and bactremia pressor support to maintain MAP On azithromycin and ceftriaxone. (3) Acute respiratory failure with hypoxia: Code(s): J96.01 - Acute respiratory failure with hypoxia Status: Acute Assessment and Plan: due to pneumonia and COVID-19 along with sepsis ventilator support (4) COVID-19 virus infection: Code(s): U07.1 - COVID-19 Status: Acute Assessment and Plan: not a candidate for remdesiver (elevated LFTs and creatinine) On Dexamethasone continue supportive therapy (5) Elevated liver enzymes: Code(s): R74.8 - Abnormal levels of other serum enzymes Status: Acute Assessment and Plan: due to shock liver GI following Liver enzymes continue to improve. (6) Lactic acidosis: Code(s): E87.2 - Acidosis Status: Acute Assessment and Plan: quite persistent due to interventions to date presumably due to decreased perfusion to organs and possible bowel ischemia trend levels for now Anion gap is somewhat low. Subjective Date/time seen: 09/08/20 08:58 Interval history: Patient is unable to give a history. On the ventilator and on sedatives. Hemodynamically he is improved. However he is still on some pressors. He is making some urine Review of Systems Review of Systems: ROS unobtainable: Yes unobtainable due to medical condition Exam Narrative: Exam Narrative: WDWN in NAD skin no rash or subcu nodules head ncat lungs coarse bilaterally cor reg no rub or gallop abd BS+ nontender and soft ext no edema or cyanosis Objective Data Vital Signs Vital Signs: Vital Signs - 24 hr 09/07/20 09:00 12/24/20 09:06 09/07/20 10:00 Temperature Pulse Rate 85 87 95 Respiratory Rate 28 H 25 H Blood Pressure 122/90 95/65 L Pulse Oximetry 92 93 09/07/20 10:47 09/07/20 12:00 09/07/20 13:36 Temperature 36.3 C L Pulse Rate 88 93 95 Respiratory Rate 24 H 18 Blood Pressure 92/68 L Pulse Oximetry 91 95 09/07/20 13:40 09/07/20 13:42 09/07/20 14:00 Temperature Pulse Rate 93 94 94 Respiratory Rate 23 H 24 H Blood Pressure 99/73 L Pulse Oximetry 91 95 09/07/20 16:00 09/07/20 18:00 09/07/20 18:07 Temperature 36.3 C L Pulse Rate 94 91 91 Respiratory Rate 24 H 24 H Blood Pressure 113/79 112/83 Pulse Oximetry 97 97 97 09/07/20 18:55 09/07/20 19:57 09/07/20 19:58 Temperature Pulse Rate 82 93 93 Respiratory Rate 24 H 25 H Blood Pressure Pulse Oximetry 97 09/07/20 20:00 09/07/20 20:05 09/07/20 21:24 Temperature 36.4 C Pulse Rate 96 92 93 Respiratory Rate 24 H 25 H 24 H Blood Pressure 123/88 Pulse Oximetry 98 09/07/20 21:25 09/07/20 21:29 09/07/20 22:28 Temperature Pulse Rate 93 97 97 Respiratory Rate 24 H 24 H Blood Pressure 123/88 Pulse Oximetry 98 97 09/08/20 00:00 09/08/20 00:28 09/08/20 01:45 Temperature 36.4 C 36.4 C Pulse Rate 101 H 99 102 H Respiratory Rate 24 H 24 H 26 H Blood Pressure 117/86 115/89 Pulse Oximetry 95 95 09/08/20 01:48 09/08/20 01:54 09/08/20 04:00 Temperature 36.2 C L Pulse Rate 102 H 103 H 101 H Respiratory Rate 27 H 21 H Blood
[2020-09-08 09:25] LABS: Reflex Lactic Acid Yes or No Add Lactic
[2020-09-08] MEDS: acetaZOLAMIDE SODIUM FOR INJ 500 MG VIAL 250 MG IV PUSH (09:27)
[2020-09-08] MEDS: LACTULOSE 20 GM/30 ML UDC PO (09:27)
[2020-09-08] MEDS: PANTOPRAZOLE SODIUM IV 40 MG VIAL IV PUSH ×2 (09:28→21:28)
[2020-09-08] MEDS: DEXAMETHASONE SOD PHOS INJ 4 MG/ML VIAL 6 MG IV PUSH (09:28)
[2020-09-08 10:15] LABS: Lactic Acid 2.1 mmol/L (0.7-2.1)
--- NOTE | 2020-09-08 12:46 | WPDINTPN ---
Progress Note: A&P Assessment and Plan (1) Acute respiratory failure with hypoxia: Code(s): J96.01 - Acute respiratory failure with hypoxia Status: Acute Assessment and Plan: Secondary to strep pneumonia and COVID-19 Intubated on 09/03 at the time of presentation after failure of BIPAP trial -Continue mechanical ventilation, will decrease tidal volumes, continue peep of 10 and wean FiO2 as tolerated currently of 60% -chest x-ray and ABGs reviewed -Sedation with fentanyl and Versed -continue bronchodilators -continue ceftriaxone, azithromycin for a total of 7 days (initiated on 09/04) -will repeat a dose of Diamox today (2) COVID-19 virus infection: Code(s): U07.1 - COVID-19 Status: Acute Assessment and Plan: Continue dexamethasone Ferritin and LDH is significantly elevated (3) Sepsis with acute liver failure and septic shock: Code(s): A41.9 - Sepsis, unspecified organism; R65.21 - Severe sepsis with septic shock; K72.01 - Acute and subacute hepatic failure with coma Status: Acute Assessment and Plan: Septic shock, likely related to strep pneumonia and bacteremia -CT scan of the abdomen pelvis showed necrotizing lobar pneumonia in the lower lobes with mild pneumonia in the right middle lobe -patient was on Levophed and vasopressin to maintain MAP > 65 mmHg -vasopressin was weaned off last night. Levophed was pause this morning. Continue monitor if patient stays off vasopressors -showed acute kidney injury and shock liver likely related to hypotension and septic shock - blood cultures 09/03 growing strep pneumoniae 2/2 bottles, brumfield sensitive. Repeat culture sent on 09/05 per are negative till now -urine culture 09/03 pending -which could be colonization - continue ceftriaxone and azithromycin, vancomycin discontinued -liver enzymes are improving -ultrasound showed distended gallbladder with sludge and wall thickening but no visible gallstones. -ultrasound of the scrotum showed: 1. Right inguinal hernia with small bowel reaching the scrotum. Moderate hydrocele.2. Left inguinal hernia with colon in inguinal canal. Small hydrocele.3. Morphologically normal testicles. No torsion. -surgery following (4) Lactic acidosis: Code(s): E87.2 - Acidosis Status: Acute Assessment and Plan: Elevated lactic acid likely related to decreased end organ perfusion. -improving. will follow lactate levels -patient has been adequately fluid-resuscitated, noninvasive hemodynamic monitoring was performed patient is not fluid responsive -likely related to infection, hypotension, decreased end organ perfusion, possible vascular compromise in lower extremities , ischemia of the gut, shock related -lactic acid has normalized (5) Bilateral inguinal hernia without obstruction or gangrene: Qualifiers: Recurrence: non-recurrent Qualified Code(s): K40.20 - Bilateral inguinal hernia, without obstruction or gangrene, not specified as recurrent Code(s): K40.20 - Bilateral inguinal hernia, without obstruction or gangrene, not specified as recurrent Status: Chronic Assessment and Plan: Surgery service has been been following Serial abdominal exam. (6) Acute renal failure: Code(s): N17.9 - Acute kidney failure, unspecified Status: Acute Assessment and Plan: Acute kidney injury likely related to hypovolemia, infection, ATN Continue to monitor renal function, electrolytes and urine output. OFF IVF as pt positive fluid balance Nephrology following Creatinine remains stable time Diamox 250 mg IV x1 for metabolic alkalosis, discussed with Nephrology (7) COPD (chronic obstructive pulmonary disease) with emphysema: Qualifiers: Emphysema type: panlobular Qualified Code(s): J43.1 - Panlobular emphysema Code(s): J43.9 - Emphysema, unspecified Status: Chronic Assessment and Plan: Continue bronchodi
[2020-09-08 13:26] LABS: Glucose Point of Care 150 (65-105)
--- NOTE | 2020-09-08 13:48 | PM.IMPN ---
Progress Note: A&P Assessment and Plan (1) Septic shock: Code(s): A41.9 - Sepsis, unspecified organism; R65.21 - Severe sepsis with septic shock Status: Acute Assessment and Plan: The patient with elevated AST/ALT, ANDRA, resp failure and low plt. No fevers. WBC elevated to 26K. The patient is on azithromycin and Rocephin. Vancomycin stopped 09/05. Lactic level down to 2.5. Able to wean pressors off. (2) Acute respiratory failure with hypoxia: Code(s): J96.01 - Acute respiratory failure with hypoxia Status: Acute Assessment and Plan: The patient has been intubated and admitted to the intensive care unit. Patient is being treated for community-acquired streptococcus pneumonia and COVID. On IV abx. Continue with nebulizer treatments. Blood cultures growing strep pneumo. Repeat BCx NGTD. Wean vent as tolerated. (3) Community acquired pneumonia, bilateral: Code(s): J18.9 - Pneumonia, unspecified organism Status: Acute Assessment and Plan: CT showing necrotizing lobar pneumonia in the lower lobes and mild pneumonia in right middle lobe. BCx growing Strept Pneumoniae. Vanco stopped 09/05 but remains on Rocephin and Azithromycin. COVID also contributing to his current illness. Continue supportive care. (4) Bacteremia due to Streptococcus pneumoniae: Code(s): R78.81 - Bacteremia; B95.3 - Streptococcus pneumoniae as the cause of diseases classified elsewhere Status: Acute Assessment and Plan: As above. (5) COVID-19 virus infection: Code(s): U07.1 - COVID-19 Status: Acute Assessment and Plan: Swab positive 09/03. Started on dexamethasone but no remdesivir with elevated LFTs and ANDRA. Continue supportive care. (6) Inguinal hernia: Code(s): K40.90 - Unilateral inguinal hernia, without obstruction or gangrene, not specified as recurrent Status: Chronic Assessment and Plan: CT scan showing Rt inguinal hernia containing small bowel and appendix with small bowel obstruction. Left inguinal hernia containing nonobstructed sigmoid colon. Dr. Dahl has seen and evaluated the patient. This has been a chronic condition. The hernias are soft and reducible. Scrotum is engorged and scrotal US small bowel reaching the scrotum and moderate right hydrocele. No need for urgent repair. Follow (7) Acute renal failure: Code(s): N17.9 - Acute kidney failure, unspecified Status: Acute Assessment and Plan: Creatinine elevated to 3.5. Treated with IV fluids. Creatinine down to 2.3 today. Probably secondary to pre renal azotemia with ATN from shock. Urine is clear. Nephrology following. (8) Elevated liver enzymes: Code(s): R74.8 - Abnormal levels of other serum enzymes Status: Acute Assessment and Plan: Patient's liver enzymes are elevated with AST 2700 and ALT 2280. Patient drinks beer every day at least a 6 pack. A liver ultrasound revealed gallbladder sludge with thickened wall but no stones. Ammonia level 50. Hepatitis panel negative. Possibly shock liver. Levels trending down. Continue to follow. Having diarrhea with fecal cont system - will hold lactulose. (9) COPD (chronic obstructive pulmonary disease) with emphysema: Qualifiers: Emphysema type: panlobular Qualified Code(s): J43.1 - Panlobular emphysema Code(s): J43.9 - Emphysema, unspecified Status: Chronic Assessment and Plan: Continue with nebulizers. (10) DVT prophylaxis: Code(s): Z29.9 - Encounter for prophylactic measures, unspecified Status: Acute Assessment and Plan: SCDs; No Lovenox due to acute thrombocytopenia (11) Thrombocytopenia: Code(s): D69.6 - Thrombocytopenia, unspecified Status: Acute Assessment and Plan: Plt count normal on admission but has dropped to 38,000 yesterday. Most likely consumptive.
[2020-09-08 14:29] LABS: Immature Platelet Fraction Pct 17.4 % (0.9-11.2); Mean Platelet Volume 13.3 fl (7.4-10.4); Platelet Count Result 56 k/mm3 (150-375)
[2020-09-08 14:41] LABS: Magnesium 2.6 mg/dL (1.6-2.3)
[2020-09-08 14:44] LABS: INR 1.1; Prothrombin Time 14.7 Seconds (11.1-14.7)
[2020-09-08 14:45] LABS: Partial Thromboplastin Time 31.8 SECONDS (22.3-36.8)
[2020-09-08 14:51] LABS: Fibrinogen 186 mg/dl (215-510)
[2020-09-08 15:02] LABS: D Dimer 6.14 ug/mL (<0.48)
[2020-09-08 16:59] LABS: Glucose Point of Care 139 (65-105)
[2020-09-08 20:39] LABS: Glucose Point of Care 117 (65-105)
[2020-09-09] VITALS (41 sets, daily range): BP systolic 92–128; BP diastolic 63–84; PULSE 93–114; RESP 16–107; TEMP 36.1–37.1; O2SAT 89–93
[2020-09-09 00:11] LABS: Glucose Point of Care 131 (65-105)
[2020-09-09] MEDS: ALBUTEROL SULFATE NEB 2.5 MG/0.5 ML INH 5 MG INHALATION ×4 (02:24→20:34)
[2020-09-09] MEDS: IPRATROPIUM BR 0.02% INH SOLN 0.5 MG/2.5 ML VIAL INHALATION ×4 (02:24→20:34)
[2020-09-09] MEDS: CENTRAL LINE FLUSH 10 ML IV PUSH ×4 (04:56→20:33)
[2020-09-09 04:57] LABS: Alveolar/Arterial O2 Gradient 304.3 mmHg; Base Excess ABG 2.7 mEq/l (+/-2.0); Fractional Inspired Oxygen 60 %; HCO3 ABG 28.7 mEq/l (22.0-26.0); Methemoglobin ABG 0.1 %THb (0-1.5); Oxygen Content ABG 15.8 %vol (16.0-22.0); Oxygen Saturation ABG 92.9 % (95.0-100.0); PCO2 ABG 50.6 mmHg (35.0-45.0); PO2 ABG 67.8 mmHg (80.0-100.0); PO2 FiO2 Ratio Arterial Blood 1.13 %; Reduced Hemoglobin 7.9 %THb (0-5.0); Total Hemoglobin 12.2 g/dL (12.0-18.0); pH ABG 7.372 (7.350-7.450)
[2020-09-09 04:58] LABS: Device VENTILATOR; Modified Allen's Test Unable to perform; Site Drawn RIGHT RADIAL
[2020-09-09 04:59] LABS: Arterial Blood Gas PEEP 10 cmH2O; Arterial Blood Gas Tidal Volume 450 ml; Arterial Blood Gas Vent Mode CMV; Arterial Blood Gas Ventilator rate 24 /MIN
[2020-09-09 05:17] LABS: Glucose Point of Care 127 (65-105)
[2020-09-09 06:29] LABS: Basophils Absolute Auto 0.1 K/mm3 (0.0-0.1); Basophils Percent Auto 0.6 % (0.2-1.2); Hematocrit 33.4 % (42.0-52.0); Hemoglobin 11.5 g/dL (14.0-18.0); Immature Granulocyte Absolute 0.44 K/mm3 (0.00-0.031); Immature Granulocyte Percent A 2.2 % (0-0.5); Immature Platelet Fraction Pct 17.8 % (0.9-11.2); Lymphocytes Absolute Auto 1.09 K/mm3 (0.9-3.2); Lymphocytes Percent Auto 5.5 % (18.3-44.2); Mean Corpuscular HGB Conc 34.4 g/dl (32-36); Mean Corpuscular Volume 101.5 fl (80-100); Mean Platelet Volume 13.5 fl (7.4-10.4); Monocytes Absolute Auto 0.3 K/mm3 (0.1-0.6); Monocytes Percent Auto 1.6 % (2.6-8.5); Neutrophils Absolute Auto 17.8 K/mm3 (1.3-6.7); Neutrophils Percent Auto 90.1 % (45.5-73.1); Nucleated Red Blood Cells Perc 0.1 % (0.0-0.2); Platelet Count Result 95 k/mm3 (150-375); Red Blood Count 3.29 M/mm3 (4.6-6.20); Red Cell Distribution Width 14.6 % (11.5-14.5); White Blood Count 19.7 K/mm3 (4.5-10.0)
[2020-09-09 07:17] LABS: Platelet Estimate Decreased (Adequate); Target Cells 1+ (NORMAL)
[2020-09-09 07:19] LABS: Alanine Aminotransferase 345 U/L (4-50); Albumin Level 2.4 g/dL (3.5-5.1); Alkaline Phosphatase 178 U/L (38-126); Anion Gap 7 mmol/L (8-16); Aspartate Amino Transferase 405 U/L (17-59); Bilirubin,Total 2.4 mg/dL (0.2-1.3); Blood Urea Nitrogen 70 mg/dL (9-20); Calcium 7.1 mg/dL (8.4-10.2); Carbon Dioxide 32 mmol/L (22-30); Chloride 99 mmol/L (98-107); Estimated CRCL calculation 38 ml/min; Estimated Glomerular Filt Rate 39; Glucose 121 mg/dL (75-110); Magnesium 2.4 mg/dL (1.6-2.3); Phosphorus 3.5 mg/dL (2.5-4.5); Potassium 3.6 mmol/L (3.4-5.0); Sodium 138 mmol/L (137-145)
[2020-09-09] MEDS: DEXAMETHASONE SOD PHOS INJ 4 MG/ML VIAL 6 MG IV PUSH (08:32)
[2020-09-09] MEDS: PANTOPRAZOLE SODIUM IV 40 MG VIAL IV PUSH ×2 (08:32→20:33)
--- NOTE | 2020-09-09 09:18 | PM.IMPN ---
Progress Note: A&P Assessment and Plan (1) Septic shock: Code(s): A41.9 - Sepsis, unspecified organism; R65.21 - Severe sepsis with septic shock Status: Acute Assessment and Plan: The patient with elevated AST/ALT, ANDRA, resp failure and low plt. No fevers. WBC elevated to 26K on admission but dropped to 11K on 09/07; WBC now at 20K. Remains on Decadron since 09/05. The patient is on azithromycin and Rocephin. Vancomycin stopped 09/05. Lactic level normal now. Able to wean pressors off on 09/07. Discussed with family. (2) Acute respiratory failure with hypoxia: Code(s): J96.01 - Acute respiratory failure with hypoxia Status: Acute Assessment and Plan: The patient remains intubated and sedated. Respiratory failure related to community-acquired streptococcus pneumonia and COVID. On IV abx. Continue with nebulizer treatments. Blood cultures growing strep pneumo. Repeat BCx NGTD. Wean vent as tolerated. (3) Community acquired pneumonia, bilateral: Code(s): J18.9 - Pneumonia, unspecified organism Status: Acute Assessment and Plan: CT showing necrotizing lobar pneumonia in the lower lobes and mild pneumonia in right middle lobe. BCx growing Strept Pneumoniae. Vanco stopped 09/05 but remains on Rocephin and Azithromycin. COVID also contributing to his current illness. Continue supportive care. (4) Bacteremia due to Streptococcus pneumoniae: Code(s): R78.81 - Bacteremia; B95.3 - Streptococcus pneumoniae as the cause of diseases classified elsewhere Status: Acute Assessment and Plan: As above. (5) COVID-19 virus infection: Code(s): U07.1 - COVID-19 Status: Acute Assessment and Plan: Swab positive 09/03. Started on dexamethasone 09/05 (Day 5) but no remdesivir with elevated LFTs and ANDRA. Continue supportive care. (6) Inguinal hernia: Code(s): K40.90 - Unilateral inguinal hernia, without obstruction or gangrene, not specified as recurrent Status: Chronic Assessment and Plan: CT scan showing Rt inguinal hernia containing small bowel and appendix with small bowel obstruction. Left inguinal hernia containing nonobstructed sigmoid colon. Dr. Dahl has seen and evaluated the patient. This has been a chronic condition. The hernias are soft and reducible. Scrotum is engorged and scrotal US small bowel reaching the scrotum and moderate right hydrocele. No need for urgent repair. Follow (7) Acute renal failure: Code(s): N17.9 - Acute kidney failure, unspecified Status: Acute Assessment and Plan: Creatinine elevated to 3.5. Treated with IV fluids. Creatinine down to 1.8 today; BUN 70 but he is on steroids. Probably secondary to pre renal azotemia with ATN from shock. Urine is clear. Nephrology following. (8) Elevated liver enzymes: Code(s): R74.8 - Abnormal levels of other serum enzymes Status: Acute Assessment and Plan: Patient's liver enzymes are elevated with AST 2700 and ALT 2280. Patient drinks beer every day at least a 6 pack. A liver ultrasound revealed gallbladder sludge with thickened wall but no stones. Ammonia level 50. Hepatitis panel negative. Possibly shock liver. Levels trending down. Continue to follow. Having diarrhea with fecal cont system so lactulose held. Repeat Ammonia level (9) COPD (chronic obstructive pulmonary disease) with emphysema: Qualifiers: Emphysema type: panlobular Qualified Code(s): J43.1 - Panlobular emphysema Code(s): J43.9 - Emphysema, unspecified Status: Chronic Assessment and Plan: Continue with nebulizers. (10) DVT prophylaxis: Code(s): Z29.9 - Encounter for prophylactic measures, unspecified Status: Acute Assessment and Plan: SCDs; No Lovenox due to acute thrombocytopenia (11) Thrombocytopenia: Code(s): D69.6 - Thrombocytopenia,
--- NOTE | 2020-09-09 11:34 | WPDINTPN ---
Progress Note: A&P Assessment and Plan (1) Acute respiratory failure with hypoxia: Code(s): J96.01 - Acute respiratory failure with hypoxia Status: Acute Assessment and Plan: Secondary to strep pneumonia and COVID-19 Intubated on 09/03 at the time of presentation after failure of BIPAP trial -Continue mechanical ventilation, will decrease tidal volumes, continue peep of 10 and wean FiO2 as tolerated currently of 60% -chest x-ray and ABGs reviewed -Sedation with fentanyl and Versed -continue bronchodilators -continue ceftriaxone, azithromycin for a total of 7 days (initiated on 09/04) (2) COVID-19 virus infection: Code(s): U07.1 - COVID-19 Status: Acute Assessment and Plan: Continue dexamethasone Ferritin and LDH is significantly elevated (3) Sepsis with acute liver failure and septic shock: Code(s): A41.9 - Sepsis, unspecified organism; R65.21 - Severe sepsis with septic shock; K72.01 - Acute and subacute hepatic failure with coma Status: Acute Assessment and Plan: Septic shock, likely related to strep pneumonia and bacteremia -CT scan of the abdomen pelvis showed necrotizing lobar pneumonia in the lower lobes with mild pneumonia in the right middle lobe -OFF VASOPRESSORS - blood cultures 09/03 growing strep pneumoniae 2/2 bottles, brumfield sensitive. Repeat culture sent on 09/05 per are negative till now -urine culture 09/03 no growth - continue ceftriaxone and azithromycin, vancomycin discontinued -liver enzymes are improving -ultrasound showed distended gallbladder with sludge and wall thickening but no visible gallstones. -ultrasound of the scrotum showed: 1. Right inguinal hernia with small bowel reaching the scrotum. Moderate hydrocele.2. Left inguinal hernia with colon in inguinal canal. Small hydrocele.3. Morphologically normal testicles. No torsion. -surgery following (4) Lactic acidosis: Code(s): E87.2 - Acidosis Status: Acute Assessment and Plan: Elevated lactic acid likely related to decreased end organ perfusion. -improving. will follow lactate levels -patient has been adequately fluid-resuscitated, noninvasive hemodynamic monitoring was performed patient is not fluid responsive -likely related to infection, hypotension, decreased end organ perfusion, possible vascular compromise in lower extremities , ischemia of the gut, shock related -lactic acid has normalized (5) Bilateral inguinal hernia without obstruction or gangrene: Qualifiers: Recurrence: non-recurrent Qualified Code(s): K40.20 - Bilateral inguinal hernia, without obstruction or gangrene, not specified as recurrent Code(s): K40.20 - Bilateral inguinal hernia, without obstruction or gangrene, not specified as recurrent Status: Chronic Assessment and Plan: Surgery service has been been following Serial abdominal exam. (6) Acute renal failure: Code(s): N17.9 - Acute kidney failure, unspecified Status: Acute Assessment and Plan: Acute kidney injury likely related to hypovolemia, infection, ATN Continue to monitor renal function, electrolytes and urine output. OFF IVF as pt positive fluid balance Nephrology following Creatinine remains stable time and improving discussed with Nephrology (7) COPD (chronic obstructive pulmonary disease) with emphysema: Qualifiers: Emphysema type: panlobular Qualified Code(s): J43.1 - Panlobular emphysema Code(s): J43.9 - Emphysema, unspecified Status: Chronic Assessment and Plan: Continue bronchodilators (8) Community acquired pneumonia, bilateral: Code(s): J18.9 - Pneumonia, unspecified organism Status: Acute Assessment and Plan: Strep pneumoniae pneumonia Continue broad spectrum abx with ceftriaxone and azithromycin,. DC vanc (9) Gangrene of toe of left foot: Code(s): I96 - Gangrene, not elsewhere cla
--- NOTE | 2020-09-09 12:46 | P.PNNP_ITS ---
Progress Note: A&P Assessment and Plan (1) Acute renal failure: Code(s): N17.9 - Acute kidney failure, unspecified Status: Acute Assessment and Plan: * presumably due to ATN from: - pre-renal factors - hemodynamic instability/shock - infection (bacteremia + COVID-19) * urine lytes suggest pre-renal azotemia * Renal ultrasound is negative * blood culture positive for strep pneumonia on 09/03. repeat cx from 09/05 show no growth to date * Urine output 1999 yesterday. * Creatinine is a little bit better. * discussed with Dr Martinez (2) Septic shock: Code(s): A41.9 - Sepsis, unspecified organism; R65.21 - Severe sepsis with septic shock Status: Acute Assessment and Plan: * due to pneumonia and bactremia * pressor support to maintain MAP * On azithromycin and ceftriaxone. (3) Acute respiratory failure with hypoxia: Code(s): J96.01 - Acute respiratory failure with hypoxia Status: Acute Assessment and Plan: * due to pneumonia and COVID-19 along with sepsis * ventilator support (4) COVID-19 virus infection: Code(s): U07.1 - COVID-19 Status: Acute Assessment and Plan: * not a candidate for remdesiver (elevated LFTs and creatinine) * On Dexamethasone * continue supportive therapy (5) Elevated liver enzymes: Code(s): R74.8 - Abnormal levels of other serum enzymes Status: Acute Assessment and Plan: * due to shock liver * GI following * Liver enzymes continue to improve. (6) Lactic acidosis: Code(s): E87.2 - Acidosis Status: Acute Assessment and Plan: * quite persistent due to interventions to date * presumably due to decreased perfusion to organs and possible bowel ischemia * trend levels for now * Anion gap is somewhat low. Subjective Date/time seen: 09/09/20 12:46 Interval history: Patient is unable to give a history. On the ventilator and on sedatives. Patient is still on 2 mics of Levophed and 0.02 of vasopressin. Making lots of urine Review of Systems Review of Systems: ROS unobtainable: Yes unobtainable due to medical condition Exam Narrative: Exam Narrative: WDWN in NAD skin no rash or subcu nodules head ncat lungs coarse bilaterally cor reg no rub or gallop abd BS+ nontender and soft ext no edema or cyanosis Objective Data Vital Signs Vital Signs: Vital Signs - 24 hr 09/08/20 14:00 09/08/20 14:14 09/08/20 14:15 Temperature Pulse Rate 87 90 89 Respiratory Rate 24 H 27 H Blood Pressure 106/78 Pulse Oximetry 99 100 09/08/20 14:28 09/08/20 16:00 09/08/20 16:31 Temperature 36.6 C Pulse Rate 88 83 85 Respiratory Rate 27 H 24 H 24 H Blood Pressure 112/79 Pulse Oximetry 95 09/08/20 16:32 09/08/20 17:18 09/08/20 17:28 Temperature Pulse Rate 84 82 84 Respiratory Rate 24 H 24 H Blood Pressure Pulse Oximetry 95 09/08/20 17:29 09/08/20 18:00 09/08/20 20:00 Temperature 36.6 C Pulse Rate 82 82 79 Respiratory Rate 24 H 24 H 19 Blood Pressure 95/73 L 101/80 Pulse Oximetry 95 90
--- NOTE | 2020-09-09 12:46 | PM.PNNEP ---
Progress Note: A&P Assessment and Plan (1) Acute renal failure: Code(s): N17.9 - Acute kidney failure, unspecified Status: Acute Assessment and Plan: presumably due to ATN from: - pre-renal factors - hemodynamic instability/shock - infection (bacteremia + COVID-19) urine lytes suggest pre-renal azotemia Renal ultrasound is negative blood culture positive for strep pneumonia on 09/03. repeat cx from 09/05 show no growth to date Urine output 1999 yesterday. Creatinine is a little bit better. discussed with Dr Martinez (2) Septic shock: Code(s): A41.9 - Sepsis, unspecified organism; R65.21 - Severe sepsis with septic shock Status: Acute Assessment and Plan: due to pneumonia and bactremia pressor support to maintain MAP On azithromycin and ceftriaxone. (3) Acute respiratory failure with hypoxia: Code(s): J96.01 - Acute respiratory failure with hypoxia Status: Acute Assessment and Plan: due to pneumonia and COVID-19 along with sepsis ventilator support (4) COVID-19 virus infection: Code(s): U07.1 - COVID-19 Status: Acute Assessment and Plan: not a candidate for remdesiver (elevated LFTs and creatinine) On Dexamethasone continue supportive therapy (5) Elevated liver enzymes: Code(s): R74.8 - Abnormal levels of other serum enzymes Status: Acute Assessment and Plan: due to shock liver GI following Liver enzymes continue to improve. (6) Lactic acidosis: Code(s): E87.2 - Acidosis Status: Acute Assessment and Plan: quite persistent due to interventions to date presumably due to decreased perfusion to organs and possible bowel ischemia trend levels for now Anion gap is somewhat low. Subjective Date/time seen: 09/09/20 12:46 Interval history: Patient is unable to give a history. On the ventilator and on sedatives. Patient is still on 2 mics of Levophed and 0.02 of vasopressin. Making lots of urine Review of Systems Review of Systems: ROS unobtainable: Yes unobtainable due to medical condition Exam Narrative: Exam Narrative: WDWN in NAD skin no rash or subcu nodules head ncat lungs coarse bilaterally cor reg no rub or gallop abd BS+ nontender and soft ext no edema or cyanosis Objective Data Vital Signs Vital Signs: Vital Signs - 24 hr 09/08/20 14:00 09/08/20 14:14 09/08/20 14:15 Temperature Pulse Rate 87 90 89 Respiratory Rate 24 H 27 H Blood Pressure 106/78 Pulse Oximetry 99 100 09/08/20 14:28 09/08/20 16:00 09/08/20 16:31 Temperature 36.6 C Pulse Rate 88 83 85 Respiratory Rate 27 H 24 H 24 H Blood Pressure 112/79 Pulse Oximetry 95 09/08/20 16:32 09/08/20 17:18 09/08/20 17:28 Temperature Pulse Rate 84 82 84 Respiratory Rate 24 H 24 H Blood Pressure Pulse Oximetry 95 09/08/20 17:29 09/08/20 18:00 09/08/20 20:00 Temperature 36.6 C Pulse Rate 82 82 79 Respiratory Rate 24 H 24 H 19 Blood Pressure 95/73 L 101/80 Pulse Oximetry 95 90 09/08/20 20:12 09/08/20 20:25 09/08/20 20:42 Temperature Pulse Rate 89 90 87 Respiratory Rate 25 H 22 H 22 H Blood Pressure Pulse Oximetry 96 09/08/20 20:43 09/08/20 21:32 09/08/20 23:43 Temperature Pulse Rate 87 79 98 Respiratory Rate 22 H 18 19 Blood Pressure 98/69 L Pulse Oximetry 92 93 09/08/20 23:47 09/09/20 00:00 09/09/20 00:06 Temperature 36.4 C Pulse Rate 94 95 94 Respiratory Rate 23 H Blood Pressure 104/73 Pulse Oximetry 93 93 09/09/20 00:24 09/09/20 00:25 09/09/20 01:32 Temperature Pulse Rate 98 98 93 Respiratory Rate 16 23 H 24 H Blood Pressure 99/72 L Pulse Oximetry 93 09/09/20 02:24 09/09/20 02:34 09/09/20 04:00 Temperature 36.2 C L Pulse Rate 94 94 104 H Respiratory Rate 26 H 26 H 21 H Blood Pressure 122/81 Pulse Oximetry 93 91 09/09/20
--- NOTE | 2020-09-09 13:30 | PCDIET ---
Nutrition Follow-Up Complete: Nutrition Diagnosis: Inadequate oral intake related to inability to consume foods orally as evidence by mechanical ventilation Nutrition Goal: Total intake will meet estimated nutrition needs Goal in progress. Patient tolerating Vital 1.5 at 40mL/hr ordered goal. Recommend increase to 50-55mL/hr to ensure estimated kcal/protein needs are being met. Last recorded weight is 81.3 kg which is decreased from last review. -I/O noted. Bowel Motility: Liquid stool per FMS - noted patient on Lactulose Labs Reviewed: Hgb (11.5), Hct (33.4), Glu (121), BUN (70), Cr (1.8), Faraz Ca (8.38), Mg (2.4) Meds Noted: Albuterol, Azithromycin, Rocephin, Decadron, Fentanyl, Atrovent, Lactulose, Versed, Protonix, Additional Notes: Coccyx macerated. Will continue to monitor with same goal. Nutrition Monitoring and Evaluation: Follow up every Friday/Friday.
[2020-09-09 13:33] LABS: Glucose Point of Care 157 (65-105)
[2020-09-09 16:46] LABS: Glucose Point of Care 178 (65-105)
[2020-09-09 21:08] LABS: Glucose Point of Care 152 (65-105)
[2020-09-09 23:54] LABS: Ferritin > 2000.00 ng/mL (11.1-264)
[2020-09-10] VITALS (47 sets, daily range): BP systolic 85–103; BP diastolic 57–73; PULSE 78–105; RESP 22–29; TEMP 35.8–37.3; O2SAT 90–99
[2020-09-10] MEDS: FENTANYL 2,500MCG/NS250ML(*CRX 2,500 MCG/250 ML BAG 7.5 MCG IV CONT (00:09)
[2020-09-10 00:39] LABS: Glucose Point of Care 149 (65-105)
[2020-09-10] MEDS: ALBUTEROL SULFATE NEB 2.5 MG/0.5 ML INH 5 MG INHALATION ×4 (02:19→20:19)
[2020-09-10] MEDS: IPRATROPIUM BR 0.02% INH SOLN 0.5 MG/2.5 ML VIAL INHALATION ×4 (02:19→20:19)
[2020-09-10 04:07] LABS: Glucose Point of Care 168 (65-105)
[2020-09-10] MEDS: CENTRAL LINE FLUSH 10 ML IV PUSH ×4 (04:35→19:46)
[2020-09-10 04:52] LABS: Alveolar/Arterial O2 Gradient 435.5 mmHg; Base Excess ABG 3.9 mEq/l (+/-2.0); Carboxyhemoglobin 0.1 % THb (0-2.0); Fractional Inspired Oxygen 80 %; HCO3 ABG 31.8 mEq/l (22.0-26.0); Methemoglobin ABG 0.1 %THb (0-1.5); Oxygen Content ABG 16.3 %vol (16.0-22.0); Oxyhemoglobin 92.1 % THb (90.0-100.0); PO2 FiO2 Ratio Arterial Blood 0.84 %; Reduced Hemoglobin 7.7 %THb (0-5.0); Total Hemoglobin 12.6 g/dL (12.0-18.0)
[2020-09-10 04:53] LABS: Device VENTILATOR; Modified Allen's Test Pass; PCO2 ABG 64.7 mmHg (35.0-45.0); Site Drawn LEFT RADIAL
[2020-09-10 04:54] LABS: Arterial Blood Gas PEEP 10 cmH2O; Arterial Blood Gas Tidal Volume 450 ml; Arterial Blood Gas Vent Mode CMV; Arterial Blood Gas Ventilator rate 24 /MIN
[2020-09-10 05:40] LABS: Basophils Absolute Auto 0.1 K/mm3 (0.0-0.1); Basophils Percent Auto 0.6 % (0.2-1.2); Eosinophils Percent Auto 0.1 % (0-4.4); Hematocrit 33.5 % (42.0-52.0); Hemoglobin 11.1 g/dL (14.0-18.0); Immature Granulocyte Absolute 0.22 K/mm3 (0.00-0.031); Immature Granulocyte Percent A 1.3 % (0-0.5); Lymphocytes Absolute Auto 0.81 K/mm3 (0.9-3.2); Lymphocytes Percent Auto 4.8 % (18.3-44.2); Mean Corpuscular HGB Conc 33.1 g/dl (32-36); Mean Corpuscular Hemoglobin 34.9 pg (26-34); Mean Corpuscular Volume 105.3 fl (80-100); Monocytes Absolute Auto 0.3 K/mm3 (0.1-0.6); Monocytes Percent Auto 1.6 % (2.6-8.5); Neutrophils Absolute Auto 15.5 K/mm3 (1.3-6.7); Neutrophils Percent Auto 91.6 % (45.5-73.1); Platelet Count Result 134 k/mm3 (150-375); Red Blood Count 3.18 M/mm3 (4.6-6.20); White Blood Count 16.9 K/mm3 (4.5-10.0)
[2020-09-10 05:48] LABS: Ammonia 25 umol/L (9-30)
[2020-09-10 05:49] LABS: Alanine Aminotransferase 294 U/L (4-50); Albumin Level 2.3 g/dL (3.5-5.1); Alkaline Phosphatase 162 U/L (38-126); Anion Gap 3 mmol/L (8-16); Aspartate Amino Transferase 236 U/L (17-59); Bilirubin,Total 2.5 mg/dL (0.2-1.3); Blood Urea Nitrogen 72 mg/dL (9-20); Calcium 7.3 mg/dL (8.4-10.2); Carbon Dioxide 35 mmol/L (22-30); Chloride 102 mmol/L (98-107); Estimated CRCL calculation 38 ml/min; Estimated Glomerular Filt Rate 39; Glucose 173 mg/dL (75-110); Magnesium 2.6 mg/dL (1.6-2.3); Phosphorus 3.9 mg/dL (2.5-4.5); Potassium 3.9 mmol/L (3.4-5.0); Sodium 140 mmol/L (137-145)
[2020-09-10 06:05] LABS: Atypical Lymphocytes Present; Large Platelets Present
[2020-09-10 06:06] LABS: Hypochromasia 1+ (NORMAL)
[2020-09-10 08:54] LABS: Chloride Rand Ur <20 mmol/L (32-290); Creatinine Random Urine 104 mg/dL (20-320)
[2020-09-10] MEDS: PANTOPRAZOLE SODIUM IV 40 MG VIAL IV PUSH ×2 (09:23→19:45)
[2020-09-10] MEDS: DEXAMETHASONE SOD PHOS INJ 4 MG/ML VIAL 6 MG IV PUSH (09:23)
--- NOTE | 2020-09-10 09:36 | P.PNNP_ITS ---
Progress Note: A&P Assessment and Plan (1) Acute renal failure: Code(s): N17.9 - Acute kidney failure, unspecified Status: Acute Assessment and Plan: * presumably due to ATN from: - pre-renal factors - hemodynamic instability/shock - infection (bacteremia + COVID-19) * urine lytes suggest pre-renal azotemia * Renal ultrasound is negative * blood culture positive for strep pneumonia on 09/03. repeat cx from 09/05 show no growth to date * Urine output >2000 yesterday. * Creatinine is stable. * discussed with Dr Martinez (2) Septic shock: Code(s): A41.9 - Sepsis, unspecified organism; R65.21 - Severe sepsis with septic shock Status: Acute Assessment and Plan: * due to pneumonia and bactremia * pressor support to maintain MAP * On azithromycin and ceftriaxone. (3) Acute respiratory failure with hypoxia: Code(s): J96.01 - Acute respiratory failure with hypoxia Status: Acute Assessment and Plan: * due to pneumonia and COVID-19 along with sepsis * ventilator support (4) COVID-19 virus infection: Code(s): U07.1 - COVID-19 Status: Acute Assessment and Plan: * not a candidate for remdesiver (elevated LFTs and creatinine) * On Dexamethasone * continue supportive therapy (5) Elevated liver enzymes: Code(s): R74.8 - Abnormal levels of other serum enzymes Status: Acute Assessment and Plan: * due to shock liver * GI following * Liver enzymes continue to improve. (6) Lactic acidosis: Code(s): E87.2 - Acidosis Status: Acute Assessment and Plan: * quite persistent due to interventions to date * presumably due to decreased perfusion to organs and possible bowel ischemia * trend levels for now * Anion gap is somewhat low. Subjective Date/time seen: 09/10/20 09:36 Interval history: Patient is unable to give a history. On the ventilator and on sedatives. Still on low-dose pressors. Made over 2L of urine yesterday. Review of Systems Review of Systems: ROS unobtainable: Yes unobtainable due to medical condition Exam Narrative: Exam Narrative: WDWN in NAD skin no rash or subcu nodules head ncat lungs coarse cor reg no rub or gallop abd BS+ nontender and soft ext no edema Objective Data Vital Signs Vital Signs: Vital Signs - 24 hr 09/09/20 10:00 09/09/20 11:00 09/09/20 12:00 Temperature 36.8 C Pulse Rate 102 H 109 H 110 H Respiratory Rate 24 H 24 H Blood Pressure 119/79 119/81 Pulse Oximetry 90 92 90 09/09/20 12:40 09/09/20 12:41 09/09/20 13:29 Temperature Pulse Rate 110 H 110 H 112 H Respiratory Rate 24 H 24 H Blood Pressure Pulse Oximetry 92 09/09/20 13:38 09/09/20 14:00 09/09/20 14:19 Temperature Pulse Rate 111 H 114 H 112 H Respiratory Rate 25 H 24 H 24 H Blood Pressure 106/69 Pulse Oximetry 90 09/09/20 14:31 09/09/20 16:00 09/09/20 16:10 Temperature 37.1 C Pulse Rate 111 H 98 108 H Respiratory Rate 24 H 24 H Blood Pressure 102/70 Pulse Oximetry 93 93 09/09/20 17:32 09/09/20
--- NOTE | 2020-09-10 09:36 | PM.PNNEP ---
Progress Note: A&P Assessment and Plan (1) Acute renal failure: Code(s): N17.9 - Acute kidney failure, unspecified Status: Acute Assessment and Plan: presumably due to ATN from: - pre-renal factors - hemodynamic instability/shock - infection (bacteremia + COVID-19) urine lytes suggest pre-renal azotemia Renal ultrasound is negative blood culture positive for strep pneumonia on 09/03. repeat cx from 09/05 show no growth to date Urine output >2000 yesterday. Creatinine is stable. discussed with Dr Martinez (2) Septic shock: Code(s): A41.9 - Sepsis, unspecified organism; R65.21 - Severe sepsis with septic shock Status: Acute Assessment and Plan: due to pneumonia and bactremia pressor support to maintain MAP On azithromycin and ceftriaxone. (3) Acute respiratory failure with hypoxia: Code(s): J96.01 - Acute respiratory failure with hypoxia Status: Acute Assessment and Plan: due to pneumonia and COVID-19 along with sepsis ventilator support (4) COVID-19 virus infection: Code(s): U07.1 - COVID-19 Status: Acute Assessment and Plan: not a candidate for remdesiver (elevated LFTs and creatinine) On Dexamethasone continue supportive therapy (5) Elevated liver enzymes: Code(s): R74.8 - Abnormal levels of other serum enzymes Status: Acute Assessment and Plan: due to shock liver GI following Liver enzymes continue to improve. (6) Lactic acidosis: Code(s): E87.2 - Acidosis Status: Acute Assessment and Plan: quite persistent due to interventions to date presumably due to decreased perfusion to organs and possible bowel ischemia trend levels for now Anion gap is somewhat low. Subjective Date/time seen: 09/10/20 09:36 Interval history: Patient is unable to give a history. On the ventilator and on sedatives. Still on low-dose pressors. Made over 2L of urine yesterday. Review of Systems Review of Systems: ROS unobtainable: Yes unobtainable due to medical condition Exam Narrative: Exam Narrative: WDWN in NAD skin no rash or subcu nodules head ncat lungs coarse cor reg no rub or gallop abd BS+ nontender and soft ext no edema Objective Data Vital Signs Vital Signs: Vital Signs - 24 hr 09/09/20 10:00 09/09/20 11:00 09/09/20 12:00 Temperature 36.8 C Pulse Rate 102 H 109 H 110 H Respiratory Rate 24 H 24 H Blood Pressure 119/79 119/81 Pulse Oximetry 90 92 90 09/09/20 12:40 09/09/20 12:41 09/09/20 13:29 Temperature Pulse Rate 110 H 110 H 112 H Respiratory Rate 24 H 24 H Blood Pressure Pulse Oximetry 92 09/09/20 13:38 09/09/20 14:00 09/09/20 14:19 Temperature Pulse Rate 111 H 114 H 112 H Respiratory Rate 25 H 24 H 24 H Blood Pressure 106/69 Pulse Oximetry 90 09/09/20 14:31 09/09/20 16:00 09/09/20 16:10 Temperature 37.1 C Pulse Rate 111 H 98 108 H Respiratory Rate 24 H 24 H Blood Pressure 102/70 Pulse Oximetry 93 93 09/09/20 17:32 09/09/20 17:34 09/09/20 18:00 Temperature Pulse Rate 101 H 100 99 Respiratory Rate 24 H 24 H Blood Pressure 98/63 L Pulse Oximetry 93 92 09/09/20 20:00 09/09/20 20:32 09/09/20 20:33 Temperature 36.1 C L Pulse Rate 100 98 97 Respiratory Rate 24 H 26 H 25 H Blood Pressure 98/66 L Pulse Oximetry 93 09/09/20 20:34 09/09/20 20:45 09/09/20 21:44 Temperature Pulse Rate 100 99 100 Respiratory Rate 26 H 25 H 24 H Blood Pressure 96/64 L Pulse Oximetry 89 L 93 09/09/20 23:12 09/09/20 23:38 09/09/20 23:42 Temperature 36.3 C L Pulse Rate 98 97 97 Respiratory Rate 26 H 24 H Blood Pressure 92/68 L Pulse Oximetry 93 93 93 09/09/20 23:48 09/10/20 00:00 09/10/20 00:09 Temperature Pulse Rate 98 97 97 Respiratory Rate 25 H 25 H Blood Pressure Pulse Oximetry 09/10/20 01:36 09/10
--- NOTE | 2020-09-10 11:17 | WPDINTPN ---
Progress Note: A&P Assessment and Plan (1) Acute respiratory failure with hypoxia: Code(s): J96.01 - Acute respiratory failure with hypoxia Status: Acute Assessment and Plan: Secondary to strep pneumonia and COVID-19 (09/03/2020) Intubated on 09/03/2020 at the time of presentation after failure of BIPAP trial -Continue mechanical ventilation, will decrease tidal volumes, continue peep of 10, FiO2 100%. Switched O2 sat monitor from finger to nose with better O2 sats, wean FiO2 as tolerated -chest x-ray and ABGs reviewed, will diurese -Sedation with fentanyl and Versed -continue bronchodilators -continue ceftriaxone, azithromycin for a total of 7 days (initiated on 09/04) (2) COVID-19 virus infection: Code(s): U07.1 - COVID-19 Status: Acute Assessment and Plan: Continue dexamethasone -patient with acute kidney injury, was not a candidate for Remdesivir -convalescent plasma was transfused on 09/05/2020 -inflammatory markers with elevated will continue to monitor (3) Sepsis with acute liver failure and septic shock: Code(s): A41.9 - Sepsis, unspecified organism; R65.21 - Severe sepsis with septic shock; K72.01 - Acute and subacute hepatic failure with coma Status: Acute Assessment and Plan: Septic shock, likely related to strep pneumonia and bacteremia -CT scan of the abdomen pelvis showed necrotizing lobar pneumonia in the lower lobes with mild pneumonia in the right middle lobe -OFF VASOPRESSORS - blood cultures 09/03 growing strep pneumoniae 2/2 bottles, brumfield sensitive. Repeat culture sent on 09/05 per are negative till now -urine culture 09/03 no growth - continue ceftriaxone and azithromycin (initiated 09/04) -liver enzymes are improving -ultrasound showed distended gallbladder with sludge and wall thickening but no visible gallstones. -ultrasound of the scrotum showed: 1. Right inguinal hernia with small bowel reaching the scrotum. Moderate hydrocele.2. Left inguinal hernia with colon in inguinal canal. Small hydrocele.3. Morphologically normal testicles. No torsion. -surgery following (4) Lactic acidosis: Code(s): E87.2 - Acidosis Status: Acute Assessment and Plan: Elevated lactic acid likely related to decreased end organ perfusion. -improving. will follow lactate levels -patient has been adequately fluid-resuscitated, noninvasive hemodynamic monitoring was performed patient is not fluid responsive -likely related to infection, hypotension, decreased end organ perfusion, possible vascular compromise in lower extremities , ischemia of the gut, shock related -lactic acid has normalized (5) Bilateral inguinal hernia without obstruction or gangrene: Qualifiers: Recurrence: non-recurrent Qualified Code(s): K40.20 - Bilateral inguinal hernia, without obstruction or gangrene, not specified as recurrent Code(s): K40.20 - Bilateral inguinal hernia, without obstruction or gangrene, not specified as recurrent Status: Chronic Assessment and Plan: Surgery service has been been following Serial abdominal exam. (6) Acute renal failure: Code(s): N17.9 - Acute kidney failure, unspecified Status: Acute Assessment and Plan: Acute kidney injury likely related to hypovolemia, infection, ATN Continue to monitor renal function, electrolytes and urine output. OFF IVF as pt positive fluid balance Nephrology following Creatinine remains stable time and improving discussed with Nephrology (7) COPD (chronic obstructive pulmonary disease) with emphysema: Qualifiers: Emphysema type: panlobular Qualified Code(s): J43.1 - Panlobular emphysema Code(s): J43.9 - Emphysema, unspecified Status: Chronic Assessment and Plan: Continue bronchodilators (8) Community acquired pneumonia, bilateral: Code(s): J18.9 - Pneumonia, unspecified organism Status: Acute
--- NOTE | 2020-09-10 13:05 | PM.IMPN ---
Progress Note: A&P Assessment and Plan (1) Septic shock: Code(s): A41.9 - Sepsis, unspecified organism; R65.21 - Severe sepsis with septic shock Status: Acute Assessment and Plan: The patient with elevated AST/ALT, ANDRA, resp failure and low plt. No fevers. WBC elevated to 26K on admission but dropped to 11K on 09/07; WBC now at 17K. Remains on Decadron since 09/05. The patient is on azithromycin and Rocephin. Vancomycin stopped 09/05. Lactic level normal now. Able to wean pressors off on 09/07. Discussed with family yesterday. (2) Acute respiratory failure with hypoxia: Code(s): J96.01 - Acute respiratory failure with hypoxia Status: Acute Assessment and Plan: The patient remains intubated and sedated. Respiratory failure related to community-acquired streptococcus pneumonia and COVID. On IV abx. Continue with nebulizer treatments. Blood cultures growing strep pneumo. Repeat BCx NGTD. Increasing O2 requirement. Sputum growing yeast of unclear significance. Wean vent as tolerated. (3) Community acquired pneumonia, bilateral: Code(s): J18.9 - Pneumonia, unspecified organism Status: Acute Assessment and Plan: CT showing necrotizing lobar pneumonia in the lower lobes and mild pneumonia in right middle lobe. BCx growing Strept Pneumoniae. Vanco stopped 09/05 but remains on Rocephin and Azithromycin. COVID also contributing to his current illness. Continue supportive care. (4) Bacteremia due to Streptococcus pneumoniae: Code(s): R78.81 - Bacteremia; B95.3 - Streptococcus pneumoniae as the cause of diseases classified elsewhere Status: Acute Assessment and Plan: As above. (5) COVID-19 virus infection: Code(s): U07.1 - COVID-19 Status: Acute Assessment and Plan: Swab positive 09/03. Started on dexamethasone 09/05 (Day 6) but no remdesivir with elevated LFTs and ANDRA. Continue supportive care. (6) Inguinal hernia: Code(s): K40.90 - Unilateral inguinal hernia, without obstruction or gangrene, not specified as recurrent Status: Chronic Assessment and Plan: CT scan showing Rt inguinal hernia containing small bowel and appendix with small bowel obstruction. Left inguinal hernia containing nonobstructed sigmoid colon. Dr. Dahl has seen and evaluated the patient. This has been a chronic condition. The hernias are soft and reducible. Scrotum is engorged and scrotal US small bowel reaching the scrotum and moderate right hydrocele. No need for urgent repair. Follow (7) Acute renal failure: Code(s): N17.9 - Acute kidney failure, unspecified Status: Acute Assessment and Plan: Creatinine elevated to 3.5. Treated with IV fluids. Creatinine down to 1.8 today; BUN elevated but he is on steroids. Probably secondary to pre renal azotemia with ATN from shock. Urine is clear. Nephrology following. (8) Elevated liver enzymes: Code(s): R74.8 - Abnormal levels of other serum enzymes Status: Acute Assessment and Plan: Patient's liver enzymes are elevated with AST 2700 and ALT 2280. Patient drinks beer every day at least a 6 pack. A liver ultrasound revealed gallbladder sludge with thickened wall but no stones. Ammonia level 50. Hepatitis panel negative. Possibly shock liver. Levels trending down. Continue to follow. Having diarrhea with fecal cont system so lactulose held. Repeat Ammonia level 25 now. (9) COPD (chronic obstructive pulmonary disease) with emphysema: Qualifiers: Emphysema type: panlobular Qualified Code(s): J43.1 - Panlobular emphysema Code(s): J43.9 - Emphysema, unspecified Status: Chronic Assessment and Plan: Continue with nebulizers. (10) DVT prophylaxis: Code(s): Z29.9 - Encounter for prophylactic measures, unspecified Status: Acute Assessment and Plan: SCDs; No Lovenox d
[2020-09-10 15:09] LABS: Glucose Point of Care 149 (65-105)
[2020-09-10] MEDS: SODIUM CHLORIDE 0.9% IV 500 ML IV CONT (18:19)
[2020-09-10 18:51] LABS: Glucose Point of Care 169 (65-105)
--- NOTE | 2020-09-10 20:17 | PC.NURSE ---
Called Dr. Martinez regarding current blood pressures after 500ml NS bolus. Start levophed per protocol.
[2020-09-10 20:26] LABS: Glucose Point of Care 148 (65-105)
[2020-09-10] MEDS: NOREPINEPHRINE 8 MG/D5W 250 ML 8 MG/250 ML BAG 9.38 MG IV CONT (20:43)
[2020-09-11] VITALS (48 sets, daily range): BP systolic 84–120; BP diastolic 51–83; PULSE 77–119; RESP 27–33; TEMP 36.5–37.4; O2SAT 89–98
[2020-09-11 00:32] LABS: Glucose Point of Care 175 (65-105)
[2020-09-11] MEDS: ALBUTEROL SULFATE NEB 2.5 MG/0.5 ML INH 5 MG INHALATION ×4 (02:23→19:48)
[2020-09-11] MEDS: IPRATROPIUM BR 0.02% INH SOLN 0.5 MG/2.5 ML VIAL INHALATION ×4 (02:23→19:48)
[2020-09-11 05:04] LABS: Basophils Absolute Auto 0.1 K/mm3 (0.0-0.1); Basophils Percent Auto 0.5 % (0.2-1.2); Eosinophils Percent Auto 0.1 % (0-4.4); Hematocrit 32.1 % (42.0-52.0); Hemoglobin 10.5 g/dL (14.0-18.0); Immature Granulocyte Absolute 0.22 K/mm3 (0.00-0.031); Immature Granulocyte Percent A 1.3 % (0-0.5); Lymphocytes Absolute Auto 0.63 K/mm3 (0.9-3.2); Lymphocytes Percent Auto 3.7 % (18.3-44.2); Mean Corpuscular HGB Conc 32.7 g/dl (32-36); Mean Corpuscular Hemoglobin 34.8 pg (26-34); Mean Corpuscular Volume 106.3 fl (80-100); Mean Platelet Volume 12.6 fl (7.4-10.4); Monocytes Absolute Auto 0.4 K/mm3 (0.1-0.6); Monocytes Percent Auto 2.2 % (2.6-8.5); Neutrophils Absolute Auto 15.5 K/mm3 (1.3-6.7); Neutrophils Percent Auto 92.2 % (45.5-73.1); Platelet Count Result 219 k/mm3 (150-375); Red Blood Count 3.02 M/mm3 (4.6-6.20); Red Cell Distribution Width 15.2 % (11.5-14.5); White Blood Count 16.8 K/mm3 (4.5-10.0)
[2020-09-11 05:18] LABS: Alanine Aminotransferase 257 U/L (4-50); Albumin Level 2.3 g/dL (3.5-5.1); Alkaline Phosphatase 169 U/L (38-126); Anion Gap 3 mmol/L (8-16); Aspartate Amino Transferase 145 U/L (17-59); Bilirubin,Total 1.7 mg/dL (0.2-1.3); Blood Urea Nitrogen 82 mg/dL (9-20); Calcium 7.5 mg/dL (8.4-10.2); Carbon Dioxide 34 mmol/L (22-30); Chloride 103 mmol/L (98-107); Estimated CRCL calculation 38 ml/min; Estimated Glomerular Filt Rate 39; Glucose 160 mg/dL (75-110); Potassium 4.4 mmol/L (3.4-5.0); Sodium 140 mmol/L (137-145)
[2020-09-11 05:53] LABS: Alveolar/Arterial O2 Gradient 349.6 mmHg; Base Excess ABG 2.9 mEq/l (+/-2.0); Carboxyhemoglobin 0.3 % THb (0-2.0); Device VENTILATOR; Fractional Inspired Oxygen 70 %; HCO3 ABG 29.7 mEq/l (22.0-26.0); Methemoglobin ABG 0.1 %THb (0-1.5); Modified Allen's Test Unable to perform; Oxygen Content ABG 15.3 %vol (16.0-22.0); Oxygen Saturation ABG 96.1 % (95.0-100.0); Oxyhemoglobin 95.8 % THb (90.0-100.0); PCO2 ABG 56.7 mmHg (35.0-45.0); PO2 ABG 88.6 mmHg (80.0-100.0); PO2 FiO2 Ratio Arterial Blood 1.27 %; Reduced Hemoglobin 3.8 %THb (0-5.0); Site Drawn LEFT RADIAL; Total Hemoglobin 11.3 g/dL (12.0-18.0); pH ABG 7.337 (7.350-7.450)
[2020-09-11 05:54] LABS: Arterial Blood Gas PEEP 10 cmH2O; Arterial Blood Gas Tidal Volume 400 ml; Arterial Blood Gas Vent Mode CMV; Arterial Blood Gas Ventilator rate 28 /MIN
[2020-09-11 06:26] LABS: Hypochromasia 1+ (NORMAL); Large Platelets Present; Platelet Estimate Adequate (Adequate)
[2020-09-11 07:50] LABS: Ferritin > 2000.00 ng/mL (11.1-264)
[2020-09-11] MEDS: FENTANYL 2,500MCG/NS250ML(*CRX 2,500 MCG/250 ML BAG 10 MCG IV CONT (08:29)
[2020-09-11] MEDS: CENTRAL LINE FLUSH 10 ML IV PUSH ×4 (08:31→23:01)
[2020-09-11] MEDS: BUMETANIDE INJ 1 MG/4 ML VIAL IV PUSH (09:03)
[2020-09-11] MEDS: PROPOFOL IV EMULSION 100 ML 2.3 MG IV CONT (09:04)
[2020-09-11] MEDS: ENOXAPARIN 40 MG/0.4 ML SYRINGE SUB-Q (09:05)
[2020-09-11] MEDS: DEXAMETHASONE SOD PHOS INJ 4 MG/ML VIAL 6 MG IV PUSH (09:06)
[2020-09-11] MEDS: PANTOPRAZOLE SODIUM IV 40 MG VIAL IV PUSH ×2 (09:06→20:14)
--- NOTE | 2020-09-11 09:07 | P.PNNP_ITS ---
Progress Note: A&P Assessment and Plan (1) Acute renal failure: Code(s): N17.9 - Acute kidney failure, unspecified Status: Acute Assessment and Plan: * improved from ATN. * Urine output >2000 yesterday. * Creatinine is stable. * discussed with Dr Martinez (2) Septic shock: Code(s): A41.9 - Sepsis, unspecified organism; R65.21 - Severe sepsis with septic shock Status: Acute Assessment and Plan: * due to pneumonia and bactremia * pressor support to maintain MAP * Pressor requirements have decreased. * On azithromycin and ceftriaxone. (3) Acute respiratory failure with hypoxia: Code(s): J96.01 - Acute respiratory failure with hypoxia Status: Acute Assessment and Plan: * due to pneumonia and COVID-19 along with sepsis * ventilator support (4) COVID-19 virus infection: Code(s): U07.1 - COVID-19 Status: Acute Assessment and Plan: * not a candidate for remdesiver (elevated LFTs and creatinine) * On Dexamethasone * continue supportive therapy (5) Elevated liver enzymes: Code(s): R74.8 - Abnormal levels of other serum enzymes Status: Acute Assessment and Plan: * due to shock liver * GI following * Liver enzymes continue to improve. (6) Lactic acidosis: Code(s): E87.2 - Acidosis Status: Acute Assessment and Plan: * quite persistent due to interventions to date * presumably due to decreased perfusion to organs and possible bowel ischemia * trend levels for now * Anion gap is somewhat low. Subjective Date/time seen: 09/11/20 09:07 Interval history: Patient is unable to give a history. On the ventilator and on sedatives. Still on norepinephrine but vasopressin is off. Made almost 2L of urine yesterday. Review of Systems Review of Systems: ROS unobtainable: Yes unobtainable due to medical condition Exam Narrative: Exam Narrative: WDWN in NAD skin no rash or subcu nodules head ncat lungs coarse cor reg no rub or gallop abd BS+ nontender and soft ext no edema Objective Data Vital Signs Vital Signs: Vital Signs - 24 hr 09/10/20 10:00 09/10/20 10:12 09/10/20 10:13 Temperature Pulse Rate 101 H 104 H 103 H Respiratory Rate 26 H 25 H 25 H Blood Pressure 103/69 Pulse Oximetry 93 09/10/20 10:45 09/10/20 12:00 09/10/20 13:14 Temperature 36.8 C Pulse Rate 95 103 H 101 H Respiratory Rate 29 H 26 H Blood Pressure 99/69 L Pulse Oximetry 90 95 09/10/20 13:15 09/10/20 14:00 09/10/20 14:47 Temperature Pulse Rate 103 H 105 H 101 H Respiratory Rate 26 H 28 H 28 H Blood Pressure 91/62 L Pulse Oximetry 94 93 09/10/20 15:05 09/10/20 16:00 09/10/20 17:15 Temperature 37.0 C Pulse Rate 99 97 98 Respiratory Rate 28 H 26 H Blood Pressure 87/57 L Pulse Oximetry 95 94 09/10/20 18:00 09/10/20 18:58 09/10/20 19:46 Temperature Pulse Rate 94 94 88 Respiratory Rate 28 H 28 H 28 H Blood Pressure 87/64 L Pulse Oximetry 97 09/10/20 19:47 09/10/20 19:56 09/10/20
--- NOTE | 2020-09-11 09:07 | PM.PNNEP ---
Progress Note: A&P Assessment and Plan (1) Acute renal failure: Code(s): N17.9 - Acute kidney failure, unspecified Status: Acute Assessment and Plan: improved from ATN. Urine output >2000 yesterday. Creatinine is stable. discussed with Dr Martinez (2) Septic shock: Code(s): A41.9 - Sepsis, unspecified organism; R65.21 - Severe sepsis with septic shock Status: Acute Assessment and Plan: due to pneumonia and bactremia pressor support to maintain MAP Pressor requirements have decreased. On azithromycin and ceftriaxone. (3) Acute respiratory failure with hypoxia: Code(s): J96.01 - Acute respiratory failure with hypoxia Status: Acute Assessment and Plan: due to pneumonia and COVID-19 along with sepsis ventilator support (4) COVID-19 virus infection: Code(s): U07.1 - COVID-19 Status: Acute Assessment and Plan: not a candidate for remdesiver (elevated LFTs and creatinine) On Dexamethasone continue supportive therapy (5) Elevated liver enzymes: Code(s): R74.8 - Abnormal levels of other serum enzymes Status: Acute Assessment and Plan: due to shock liver GI following Liver enzymes continue to improve. (6) Lactic acidosis: Code(s): E87.2 - Acidosis Status: Acute Assessment and Plan: quite persistent due to interventions to date presumably due to decreased perfusion to organs and possible bowel ischemia trend levels for now Anion gap is somewhat low. Subjective Date/time seen: 09/11/20 09:07 Interval history: Patient is unable to give a history. On the ventilator and on sedatives. Still on norepinephrine but vasopressin is off. Made almost 2L of urine yesterday. Review of Systems Review of Systems: ROS unobtainable: Yes unobtainable due to medical condition Exam Narrative: Exam Narrative: WDWN in NAD skin no rash or subcu nodules head ncat lungs coarse cor reg no rub or gallop abd BS+ nontender and soft ext no edema Objective Data Vital Signs Vital Signs: Vital Signs - 24 hr 09/10/20 10:00 09/10/20 10:12 09/10/20 10:13 Temperature Pulse Rate 101 H 104 H 103 H Respiratory Rate 26 H 25 H 25 H Blood Pressure 103/69 Pulse Oximetry 93 09/10/20 10:45 09/10/20 12:00 09/10/20 13:14 Temperature 36.8 C Pulse Rate 95 103 H 101 H Respiratory Rate 29 H 26 H Blood Pressure 99/69 L Pulse Oximetry 90 95 09/10/20 13:15 09/10/20 14:00 09/10/20 14:47 Temperature Pulse Rate 103 H 105 H 101 H Respiratory Rate 26 H 28 H 28 H Blood Pressure 91/62 L Pulse Oximetry 94 93 09/10/20 15:05 09/10/20 16:00 09/10/20 17:15 Temperature 37.0 C Pulse Rate 99 97 98 Respiratory Rate 28 H 26 H Blood Pressure 87/57 L Pulse Oximetry 95 94 09/10/20 18:00 09/10/20 18:58 09/10/20 19:46 Temperature Pulse Rate 94 94 88 Respiratory Rate 28 H 28 H 28 H Blood Pressure 87/64 L Pulse Oximetry 97 09/10/20 19:47 09/10/20 19:56 09/10/20 20:00 Temperature 36.3 C L Pulse Rate 90 88 88 Respiratory Rate 28 H 28 H 28 H Blood Pressure 87/65 L Pulse Oximetry 95 09/10/20 20:20 09/10/20 20:23 09/10/20 20:30 Temperature Pulse Rate 98 88 88 Respiratory Rate 28 H 28 H Blood Pressure 85/64 L Pulse Oximetry 98 99 09/10/20 20:33 09/10/20 20:43 09/10/20 21:00 Temperature Pulse Rate 100 87 80 Respiratory Rate 28 H 28 H Blood Pressure 85/64 L 99/69 L Pulse Oximetry 96 09/10/20 21:10 09/10/20 21:30 09/10/20 22:00 Temperature Pulse Rate 78 79 Respiratory Rate 28 H 28 H Blood Pressure 99/73 L 97/70 L Pulse Oximetry 97 95 95 09/10/20 22:30 09/10/20 23:11 09/10/20 23:40 Temperature Pulse Rate 81 80 83 Respiratory Rate 28 H 28 H Blood Pressure 96/71 L Pulse Oximetry 96 96 96 09/11/20 00:00 09/11/20 00:02 09/11/20 01:00 Temperature 36.5 C Pulse Rate 78 77 Respiratory
[2020-09-11 09:31] LABS: Glucose Point of Care 133 (65-105)
[2020-09-11 10:38] LABS: Lactate Dehydrogenase 1731 U/L (313-618)
[2020-09-11 10:53] LABS: Lactate Dehydrogenase 993 U/L (313-618)
--- NOTE | 2020-09-11 11:26 | PCDIET ---
ICU Rounding Note: Patient tolerating Vital 1.5 at 40mL/hr goal rate with residuals 210mL and below. MD order to increase goal to 55mL/hr as recommended. Last recorded weight is 76.5kg which is decreased from last review. -I/O noted. Bowel Motility: +Stools in FMS. Labs Reviewed: Hgb (10.5), Hct (32.1), Glu (160), BUN (82), Cr (1.8), Alb (2.3), Faraz Ca (8.86) Meds Noted: Albuterol, Fentanyl, Protonix, Azithromycin, Atrovent, Levophed, Rocephin, Lactulose, Bumex, Decadron, Versed, Propofol (rate of 2.295mL/hr provides 60kcal per day) Additional Notes: Coccyx macerated. Bilateral heels edematous, blistered. Following daily in ICU rounds. Assessing/reassessing every Friday/Friday.
--- NOTE | 2020-09-11 11:27 | PM.IMPN ---
Progress Note: A&P Assessment and Plan (1) Septic shock: Code(s): A41.9 - Sepsis, unspecified organism; R65.21 - Severe sepsis with septic shock Status: Acute Assessment and Plan: The patient with elevated AST/ALT, ANDRA, resp failure and low plt. No fevers. WBC elevated to 26K on admission but dropped to 11K on 09/07; WBC now at 17K and about the same. Remains on Decadron since 09/05. The patient is on azithromycin and Rocephin. Vancomycin stopped 09/05. Lactic level normal now. Able to wean pressors off on 09/07 but resumed 09/10. Patient currently a DNR. (2) Acute respiratory failure with hypoxia: Code(s): J96.01 - Acute respiratory failure with hypoxia Status: Acute Assessment and Plan: The patient remains intubated and sedated. Respiratory failure related to community-acquired streptococcus pneumonia and COVID. On IV abx. Continue with nebulizer treatments. Blood cultures growing strep pneumo. Repeat BCx NGTD. Increasing O2 requirement. Sputum growing yeast of unclear significance. Wean vent as tolerated. Discussed with delicatessen manager. (3) Community acquired pneumonia, bilateral: Code(s): J18.9 - Pneumonia, unspecified organism Status: Acute Assessment and Plan: CT showing necrotizing lobar pneumonia in the lower lobes and mild pneumonia in right middle lobe. BCx growing Strept Pneumoniae. Vanco stopped 09/05 but remains on Rocephin and Azithromycin. COVID also contributing to his current illness. Continue supportive care. (4) Bacteremia due to Streptococcus pneumoniae: Code(s): R78.81 - Bacteremia; B95.3 - Streptococcus pneumoniae as the cause of diseases classified elsewhere Status: Acute Assessment and Plan: As above. (5) COVID-19 virus infection: Code(s): U07.1 - COVID-19 Status: Acute Assessment and Plan: Swab positive 09/03. Started on dexamethasone 09/05 (Day 6) but no remdesivir with elevated LFTs and ANDRA. Continue supportive care. (6) Inguinal hernia: Code(s): K40.90 - Unilateral inguinal hernia, without obstruction or gangrene, not specified as recurrent Status: Chronic Assessment and Plan: CT scan showing Rt inguinal hernia containing small bowel and appendix with small bowel obstruction. Left inguinal hernia containing nonobstructed sigmoid colon. Dr. Dahl has seen and evaluated the patient. This has been a chronic condition. The hernias are soft and reducible. Scrotum is engorged and scrotal US small bowel reaching the scrotum and moderate right hydrocele. No need for urgent repair. Follow (7) Acute renal failure: Code(s): N17.9 - Acute kidney failure, unspecified Status: Acute Assessment and Plan: Creatinine elevated to 3.5. Treated with IV fluids. Creatinine down to 1.8 today and stable; BUN elevated but he is on steroids. Probably secondary to pre renal azotemia with ATN from shock; no evidence of GI bleeding. Urine is clear. Nephrology following. (8) Elevated liver enzymes: Code(s): R74.8 - Abnormal levels of other serum enzymes Status: Acute Assessment and Plan: Patient's liver enzymes are elevated with AST 2700 and ALT 2280. Patient drinks beer every day at least a 6 pack. A liver ultrasound revealed gallbladder sludge with thickened wall but no stones. Ammonia level 50. Hepatitis panel negative. Possibly shock liver. Levels trending down. Continue to follow. Having diarrhea with fecal cont system so lactulose held. Repeat Ammonia level 25 now. (9) COPD (chronic obstructive pulmonary disease) with emphysema: Qualifiers: Emphysema type: panlobular Qualified Code(s): J43.1 - Panlobular emphysema Code(s): J43.9 - Emphysema, unspecified Status: Chronic Assessment and Plan: Continue with nebulizers. (10) DVT prophylaxis: Code(s): Z29.9 - Encounter for proph
--- NOTE | 2020-09-11 11:53 | WPDINTPN ---
Progress Note: A&P Assessment and Plan (1) Acute respiratory failure with hypoxia: Code(s): J96.01 - Acute respiratory failure with hypoxia Status: Acute Assessment and Plan: Secondary to strep pneumonia and COVID-19 (09/03/2020) Intubated on 09/03/2020 at the time of presentation after failure of BIPAP trial -Continue mechanical ventilation, will decrease tidal volumes, continue peep of 10, FiO2 70%. -chest x-ray and ABGs reviewed, -diuresed patient on 09/10, with adequate urine output but no improvement in chest x-ray. -Sedation with fentanyl and Versed -continue bronchodilators -continue ceftriaxone, azithromycin for a total of 10 days (initiated on 09/04), (2) COVID-19 virus infection: Code(s): U07.1 - COVID-19 Status: Acute Assessment and Plan: Continue dexamethasone -patient with acute kidney injury, was not a candidate for Remdesivir -convalescent plasma was transfused on 09/05/2020 -inflammatory markers with elevated will continue to monitor (3) Sepsis with acute liver failure and septic shock: Code(s): A41.9 - Sepsis, unspecified organism; R65.21 - Severe sepsis with septic shock; K72.01 - Acute and subacute hepatic failure with coma Status: Acute Assessment and Plan: Septic shock, likely related to strep pneumonia and bacteremia -CT scan of the abdomen pelvis showed necrotizing lobar pneumonia in the lower lobes with mild pneumonia in the right middle lobe -restarted on Levophed overnight on 09/10 - blood cultures 09/03 growing strep pneumoniae 2/2 bottles, brumfield sensitive. Repeat culture sent on 09/05 per are negative till now -urine culture 09/03 no growth - continue ceftriaxone and azithromycin (initiated 09/04) -liver enzymes are improving -ultrasound showed distended gallbladder with sludge and wall thickening but no visible gallstones. -ultrasound of the scrotum showed: 1. Right inguinal hernia with small bowel reaching the scrotum. Moderate hydrocele.2. Left inguinal hernia with colon in inguinal canal. Small hydrocele.3. Morphologically normal testicles. No torsion. -surgery following (4) Lactic acidosis: Code(s): E87.2 - Acidosis Status: Acute Assessment and Plan: Elevated lactic acid likely related to decreased end organ perfusion. -improving. will follow lactate levels -patient has been adequately fluid-resuscitated, noninvasive hemodynamic monitoring was performed patient is not fluid responsive -likely related to infection, hypotension, decreased end organ perfusion, possible vascular compromise in lower extremities , ischemia of the gut, shock related -lactic acid has normalized (5) Bilateral inguinal hernia without obstruction or gangrene: Qualifiers: Recurrence: non-recurrent Qualified Code(s): K40.20 - Bilateral inguinal hernia, without obstruction or gangrene, not specified as recurrent Code(s): K40.20 - Bilateral inguinal hernia, without obstruction or gangrene, not specified as recurrent Status: Chronic Assessment and Plan: Surgery service has been been following Serial abdominal exam. (6) Acute renal failure: Code(s): N17.9 - Acute kidney failure, unspecified Status: Acute Assessment and Plan: Acute kidney injury likely related to hypovolemia, infection, ATN Continue to monitor renal function, electrolytes and urine output. OFF IVF as pt positive fluid balance Nephrology following Creatinine remains stable time and improving discussed with Nephrology (7) COPD (chronic obstructive pulmonary disease) with emphysema: Qualifiers: Emphysema type: panlobular Qualified Code(s): J43.1 - Panlobular emphysema Code(s): J43.9 - Emphysema, unspecified Status: Chronic Assessment and Plan: Continue bronchodilators (8) Community acquired pneumonia, bilateral: Code(s): J18.9 - Pneumonia, unspecified organism
[2020-09-12] VITALS (39 sets, daily range): BP systolic 86–128; BP diastolic 59–80; PULSE 89–118; RESP 28–31; TEMP 36.5–37.3; O2SAT 90–99
[2020-09-12 00:30] LABS: Glucose Point of Care 186 (65-105)
[2020-09-12] MEDS: IPRATROPIUM BR 0.02% INH SOLN 0.5 MG/2.5 ML VIAL INHALATION ×4 (02:12→20:18)
[2020-09-12] MEDS: ALBUTEROL SULFATE NEB 2.5 MG/0.5 ML INH 5 MG INHALATION ×4 (02:12→20:17)
[2020-09-12] MEDS: PROPOFOL IV EMULSION 100 ML 4.59 MG IV CONT (04:34)
[2020-09-12 04:42] LABS: Alveolar/Arterial O2 Gradient 316.3 mmHg; Base Excess ABG 2.8 mEq/l (+/-2.0); Carboxyhemoglobin 0.2 % THb (0-2.0); HCO3 ABG 31.2 mEq/l (22.0-26.0); Methemoglobin ABG 0.1 %THb (0-1.5); Oxygen Content ABG 17.8 %vol (16.0-22.0); Oxyhemoglobin 94.2 % THb (90.0-100.0); PO2 ABG 74.9 mmHg (80.0-100.0); PO2 FiO2 Ratio Arterial Blood 1.15 %; Reduced Hemoglobin 5.5 %THb (0-5.0); Total Hemoglobin 13.4 g/dL (12.0-18.0)
[2020-09-12 04:43] LABS: PCO2 ABG 66.4 mmHg (35.0-45.0)
[2020-09-12 04:44] LABS: Device VENTILATOR; Fractional Inspired Oxygen 70 %; Modified Allen's Test Unable to perform; Site Drawn LEFT RADIAL
[2020-09-12 04:45] LABS: Arterial Blood Gas PEEP 10 cmH2O; Arterial Blood Gas Tidal Volume 400 ml; Arterial Blood Gas Vent Mode CMV; Arterial Blood Gas Ventilator rate 28 /MIN
[2020-09-12 04:59] LABS: Basophils Absolute Auto 0.1 K/mm3 (0.0-0.1); Basophils Percent Auto 0.4 % (0.2-1.2); Eosinophils Percent Auto 0.2 % (0-4.4); Hematocrit 32.9 % (42.0-52.0); Hemoglobin 10.6 g/dL (14.0-18.0); Immature Granulocyte Absolute 0.24 K/mm3 (0.00-0.031); Immature Granulocyte Percent A 1.7 % (0-0.5); Lymphocytes Absolute Auto 0.45 K/mm3 (0.9-3.2); Lymphocytes Percent Auto 3.2 % (18.3-44.2); Mean Corpuscular HGB Conc 32.2 g/dl (32-36); Mean Corpuscular Hemoglobin 34.6 pg (26-34); Mean Corpuscular Volume 107.5 fl (80-100); Mean Platelet Volume 12.6 fl (7.4-10.4); Monocytes Absolute Auto 0.6 K/mm3 (0.1-0.6); Neutrophils Absolute Auto 12.8 K/mm3 (1.3-6.7); Neutrophils Percent Auto 90.5 % (45.5-73.1); Platelet Count Result 286 k/mm3 (150-375); Red Blood Count 3.06 M/mm3 (4.6-6.20); Red Cell Distribution Width 15.5 % (11.5-14.5); White Blood Count 14.2 K/mm3 (4.5-10.0)
[2020-09-12 05:18] LABS: Alanine Aminotransferase 274 U/L (4-50); Albumin Level 2.4 g/dL (3.5-5.1); Alkaline Phosphatase 197 U/L (38-126); Anion Gap 3 mmol/L (8-16); Aspartate Amino Transferase 146 U/L (17-59); Bilirubin,Total 1.4 mg/dL (0.2-1.3); Blood Urea Nitrogen 94 mg/dL (9-20); Calcium 7.7 mg/dL (8.4-10.2); Carbon Dioxide 35 mmol/L (22-30); Chloride 104 mmol/L (98-107); Estimated CRCL calculation 35 ml/min; Estimated Glomerular Filt Rate 34; Glucose 138 mg/dL (75-110); Magnesium 2.8 mg/dL (1.6-2.3); Phosphorus 4.4 mg/dL (2.5-4.5); Potassium 4.9 mmol/L (3.4-5.0); Sodium 142 mmol/L (137-145)
[2020-09-12] MEDS: CENTRAL LINE FLUSH 10 ML IV PUSH ×4 (07:46→20:06)
[2020-09-12] MEDS: DEXAMETHASONE SOD PHOS INJ 4 MG/ML VIAL 6 MG IV PUSH (08:46)
[2020-09-12] MEDS: PANTOPRAZOLE SODIUM IV 40 MG VIAL IV PUSH ×2 (08:46→20:02)
[2020-09-12] MEDS: ENOXAPARIN 40 MG/0.4 ML SYRINGE SUB-Q (08:46)
[2020-09-12 09:21] LABS: Glucose Point of Care 136 (65-105)
[2020-09-12] MEDS: CISATRACURIUM BESYLATE 20 MG/10 ML VIAL 11.5 MG IV PUSH (09:28)
[2020-09-12] MEDS: CISATRACURIUM BESYLATE 200 MG in DEXTROSE 5% 80 ML 6.89 ML IV CONT (09:30)
--- NOTE | 2020-09-12 09:53 | P.PNNP_ITS ---
Progress Note: A&P Assessment and Plan (1) Acute renal failure: Code(s): N17.9 - Acute kidney failure, unspecified Status: Acute Assessment and Plan: * improved from ATN. * Urine output >2000 yesterday. * Creatinine is up marginally. * discussed with Dr Martinez (2) Septic shock: Code(s): A41.9 - Sepsis, unspecified organism; R65.21 - Severe sepsis with septic shock Status: Acute Assessment and Plan: * due to pneumonia and bactremia * On azithromycin and ceftriaxone. (3) Acute respiratory failure with hypoxia: Code(s): J96.01 - Acute respiratory failure with hypoxia Status: Acute Assessment and Plan: * due to pneumonia and COVID-19 along with sepsis * ventilator support * To start Nimbex soon (4) COVID-19 virus infection: Code(s): U07.1 - COVID-19 Status: Acute Assessment and Plan: * not a candidate for remdesiver (elevated LFTs and creatinine) * On Dexamethasone * continue supportive therapy (5) Elevated liver enzymes: Code(s): R74.8 - Abnormal levels of other serum enzymes Status: Acute Assessment and Plan: * due to shock liver * GI following * Liver enzymes continue to improve. (6) Lactic acidosis: Code(s): E87.2 - Acidosis Status: Acute Assessment and Plan: * quite persistent due to interventions to date * presumably due to decreased perfusion to organs and possible bowel ischemia * trend levels for now * Anion gap is somewhat low. Subjective Date/time seen: 09/12/20 09:54 Interval history: Patient is unable to give a history. On the ventilator and on sedatives. off pressors. Made almost 2100 . Exam Narrative: Exam Narrative: WDWN in NAD skin no rash or subcu nodules head ncat lungs coarse cor reg no rub or gallop abd BS+ nontender and soft ext no edema Objective Data Vital Signs Vital Signs: Vital Signs - 24 hr 09/11/20 10:00 09/11/20 11:02 09/11/20 11:03 Temperature Pulse Rate 106 H 110 H 111 H Respiratory Rate 27 H 27 H 28 H Blood Pressure 112/72 100/66 Pulse Oximetry 89 L 09/11/20 11:13 09/11/20 11:46 09/11/20 12:00 Temperature 37.2 C Pulse Rate 117 H 109 H 118 H Respiratory Rate 28 H 29 H Blood Pressure 90/61 L Pulse Oximetry 92 94 09/11/20 13:05 09/11/20 13:44 09/11/20 14:00 Temperature Pulse Rate 111 H 106 H 106 H Respiratory Rate 28 H 28 H Blood Pressure 84/51 L 85/56 L Pulse Oximetry 92 94 09/11/20 15:08 09/11/20 16:00 09/11/20 16:42 Temperature 37.1 C Pulse Rate 101 H 97 96 Respiratory Rate 29 H Blood Pressure 105/57 L 101/62 Pulse Oximetry 96 97 09/11/20 17:36 09/11/20 17:37 09/11/20 17:38 Temperature Pulse Rate 97 97 96 Respiratory Rate 28 H 28 H 28 H Blood Pressure 94/64 L Pulse Oximetry 09/11/20 18:00 09/11/20 19:48 09/11/20 19:49 Temperature Pulse Rate 96 94 96 Respiratory Rate 28 H 28 H Blood Pressure 88/54 L Pulse Oximetry 94 91 09/11/20
--- NOTE | 2020-09-12 09:53 | PM.PNNEP ---
Progress Note: A&P Assessment and Plan (1) Acute renal failure: Code(s): N17.9 - Acute kidney failure, unspecified Status: Acute Assessment and Plan: improved from ATN. Urine output >2000 yesterday. Creatinine is up marginally. discussed with Dr Martinez (2) Septic shock: Code(s): A41.9 - Sepsis, unspecified organism; R65.21 - Severe sepsis with septic shock Status: Acute Assessment and Plan: due to pneumonia and bactremia On azithromycin and ceftriaxone. (3) Acute respiratory failure with hypoxia: Code(s): J96.01 - Acute respiratory failure with hypoxia Status: Acute Assessment and Plan: due to pneumonia and COVID-19 along with sepsis ventilator support To start Nimbex soon (4) COVID-19 virus infection: Code(s): U07.1 - COVID-19 Status: Acute Assessment and Plan: not a candidate for remdesiver (elevated LFTs and creatinine) On Dexamethasone continue supportive therapy (5) Elevated liver enzymes: Code(s): R74.8 - Abnormal levels of other serum enzymes Status: Acute Assessment and Plan: due to shock liver GI following Liver enzymes continue to improve. (6) Lactic acidosis: Code(s): E87.2 - Acidosis Status: Acute Assessment and Plan: quite persistent due to interventions to date presumably due to decreased perfusion to organs and possible bowel ischemia trend levels for now Anion gap is somewhat low. Subjective Date/time seen: 09/12/20 09:54 Interval history: Patient is unable to give a history. On the ventilator and on sedatives. off pressors. Made almost 2100 . Exam Narrative: Exam Narrative: WDWN in NAD skin no rash or subcu nodules head ncat lungs coarse cor reg no rub or gallop abd BS+ nontender and soft ext no edema Objective Data Vital Signs Vital Signs: Vital Signs - 24 hr 09/11/20 10:00 09/11/20 11:02 09/11/20 11:03 Temperature Pulse Rate 106 H 110 H 111 H Respiratory Rate 27 H 27 H 28 H Blood Pressure 112/72 100/66 Pulse Oximetry 89 L 09/11/20 11:13 09/11/20 11:46 09/11/20 12:00 Temperature 37.2 C Pulse Rate 117 H 109 H 118 H Respiratory Rate 28 H 29 H Blood Pressure 90/61 L Pulse Oximetry 92 94 12/28/20 13:05 09/11/20 13:44 09/11/20 14:00 Temperature Pulse Rate 111 H 106 H 106 H Respiratory Rate 28 H 28 H Blood Pressure 84/51 L 85/56 L Pulse Oximetry 92 94 09/11/20 15:08 09/11/20 16:00 09/11/20 16:42 Temperature 37.1 C Pulse Rate 101 H 97 96 Respiratory Rate 29 H Blood Pressure 105/57 L 101/62 Pulse Oximetry 96 97 09/11/20 17:36 09/11/20 17:37 09/11/20 17:38 Temperature Pulse Rate 97 97 96 Respiratory Rate 28 H 28 H 28 H Blood Pressure 94/64 L Pulse Oximetry 09/11/20 18:00 09/11/20 19:48 09/11/20 19:49 Temperature Pulse Rate 96 94 96 Respiratory Rate 28 H 28 H Blood Pressure 88/54 L Pulse Oximetry 94 91 09/11/20 20:00 09/11/20 20:14 09/11/20 22:00 Temperature 37.4 C Pulse Rate 95 97 93 Respiratory Rate 28 H 28 H 28 H Blood Pressure 90/54 L 90/54 L 95/60 L Pulse Oximetry 92 95 09/11/20 22:38 09/12/20 00:00 09/12/20 00:22 Temperature 36.7 C Pulse Rate 91 92 90 Respiratory Rate 28 H 28 H Blood Pressure 99/61 L 99/61 L Pulse Oximetry 92 93 09/12/20 02:00 09/12/20 02:14 09/12/20 04:00 Temperature 36.6 C Pulse Rate 89 90 95 Respiratory Rate 28 H 28 H 28 H Blood Pressure 103/70 111/70 Pulse Oximetry 96 97 95 09/12/20 04:35 09/12/20 04:52 09/12/20 06:00 Temperature Pulse Rate 98 95 98 Respiratory Rate 28 H 29 H Blood Pressure 112/71 110/68 Pulse Oximetry 95 99 09/12/20 08:25 09/12/20 08:35 09/12/20 09:30 Temperature Pulse Rate 107 H 103 H 110 H Respiratory Rate 30 H 30 H 31 H Blood Pressure 128/69 Pulse Oximetry 92 Intake/Output Intake/Output: Intake & Output 09/09/20 09/10/20 12
[2020-09-12 11:10] LABS: Alveolar/Arterial O2 Gradient 255.7 mmHg; Carboxyhemoglobin 0.2 % THb (0-2.0); Fractional Inspired Oxygen 55 %; Methemoglobin ABG 0.1 %THb (0-1.5); Oxygen Content ABG 15.6 %vol (16.0-22.0); Oxyhemoglobin 90.9 % THb (90.0-100.0); PO2 ABG 62.7 mmHg (80.0-100.0); PO2 FiO2 Ratio Arterial Blood 1.14 %; Reduced Hemoglobin 8.8 %THb (0-5.0); Total Hemoglobin 12.2 g/dL (12.0-18.0); pH ABG 7.302 (7.350-7.450)
[2020-09-12 11:12] LABS: Arterial Blood Gas PEEP 10 cmH2O; Arterial Blood Gas Tidal Volume 400 ml; Arterial Blood Gas Vent Mode ASSIST CONTROL; Arterial Blood Gas Ventilator rate 28 /MIN; Device VENTILATOR; Modified Allen's Test Pass; PCO2 ABG 66.3 mmHg (35.0-45.0); Site Drawn RIGHT RADIAL
--- NOTE | 2020-09-12 11:39 | PCDIET ---
Nutrition Follow-Up Complete: Nutrition Diagnosis: Inadequate oral intake related to inability to consume foods orally as evidenced by mechanical ventilation. Nutrition Goal: Total intake will meet estimated nutrition needs. Goal in progress. Tube feedings held overnight for 350mL residual. Previously reached goal rate of 55mL/hr Vital 1.5 with 30mL water flush every 4 hours. MD order to resume tube feedings which is appropriate. May benefit from prokinetic agent if residuals remain above 250mL. Last recorded weight is 76.6 kg which is stable with last review. Bowel Motility: +FMS. Labs Reviewed: Hgb (10.6), Hct (32.9), Glu (138), BUN (94), Cr (2.0), Alb (2.4), Faraz Ca (8.98) Meds Noted: Albuterol, Zithromax, Fentanyl, Protonix, Rocephin, Nimbex, Decadron, Atrovent, Lactulose, Versed Additional Notes: Noted increased LFT's, BUN, Creat. Buttocks macerated. Blisters to bilateral heels. Will continue to monitor closely with same goal. Nutrition Monitoring and Evaluation: Follow up every Friday/Friday.
--- NOTE | 2020-09-12 12:06 | WPDINTPN ---
Progress Note: A&P Assessment and Plan (1) Acute respiratory failure with hypoxia: Code(s): J96.01 - Acute respiratory failure with hypoxia Status: Acute Assessment and Plan: Secondary to strep pneumonia and COVID-19 (09/03/2020) Intubated on 09/03/2020 at the time of presentation after failure of BIPAP trial -Continue mechanical ventilation, will decrease tidal volumes, continue peep of 10, FiO2 65%. -chest x-ray and ABGs reviewed, -diuresed patient on 09/10, with adequate urine output but no improvement in chest x-ray. -Sedation with fentanyl and Versed -patient with increasing respiratory effort using accessory muscles, started on Nimbex for neuromuscular blockade on 09/12 -continue bronchodilators -continue ceftriaxone, azithromycin for a total of 10 days (initiated on 09/04), white count trending down (2) COVID-19 virus infection: Code(s): U07.1 - COVID-19 Status: Acute Assessment and Plan: Continue dexamethasone -patient with acute kidney injury, was not a candidate for Remdesivir -convalescent plasma was transfused on 09/05/2020 -inflammatory markers with elevated will continue to monitor (3) Sepsis with acute liver failure and septic shock: Code(s): A41.9 - Sepsis, unspecified organism; R65.21 - Severe sepsis with septic shock; K72.01 - Acute and subacute hepatic failure with coma Status: Acute Assessment and Plan: Septic shock, likely related to strep pneumonia and bacteremia -CT scan of the abdomen pelvis showed necrotizing lobar pneumonia in the lower lobes with mild pneumonia in the right middle lobe -restarted on Levophed overnight on 09/10 - blood cultures 09/03 growing strep pneumoniae 2/2 bottles, brumfield sensitive. Repeat culture sent on 09/05 per are negative till now -urine culture 09/03 no growth - continue ceftriaxone and azithromycin (initiated 09/04) -liver enzymes are improving -ultrasound showed distended gallbladder with sludge and wall thickening but no visible gallstones. -ultrasound of the scrotum showed: 1. Right inguinal hernia with small bowel reaching the scrotum. Moderate hydrocele.2. Left inguinal hernia with colon in inguinal canal. Small hydrocele.3. Morphologically normal testicles. No torsion. -surgery following (4) Lactic acidosis: Code(s): E87.2 - Acidosis Status: Acute Assessment and Plan: Elevated lactic acid likely related to decreased end organ perfusion. -improving. will follow lactate levels -patient has been adequately fluid-resuscitated, noninvasive hemodynamic monitoring was performed patient is not fluid responsive -likely related to infection, hypotension, decreased end organ perfusion, possible vascular compromise in lower extremities , ischemia of the gut, shock related -lactic acid has normalized (5) Bilateral inguinal hernia without obstruction or gangrene: Qualifiers: Recurrence: non-recurrent Qualified Code(s): K40.20 - Bilateral inguinal hernia, without obstruction or gangrene, not specified as recurrent Code(s): K40.20 - Bilateral inguinal hernia, without obstruction or gangrene, not specified as recurrent Status: Chronic Assessment and Plan: Surgery service has been been following Serial abdominal exam. (6) Acute renal failure: Code(s): N17.9 - Acute kidney failure, unspecified Status: Acute Assessment and Plan: Acute kidney injury likely related to hypovolemia, infection, ATN Continue to monitor renal function, electrolytes and urine output. OFF IVF as pt positive fluid balance Nephrology following Creatinine slightly increased but stable discussed with Nephrology (7) COPD (chronic obstructive pulmonary disease) with emphysema: Qualifiers: Emphysema type: panlobular Qualified Code(s): J43.1 - Panlobular emphysema Code(s): J43.9 - Emphysema, unspecified Status: Chronic Assessment and
[2020-09-12] MEDS: FENTANYL 2,500MCG/NS250ML(*CRX 2,500 MCG/250 ML BAG 10 MCG IV CONT (12:21)
[2020-09-12 12:45] LABS: Glucose Point of Care 131 (65-105)
--- NOTE | 2020-09-12 16:11 | PM.IMPN ---
Progress Note: A&P Assessment and Plan (1) Septic shock: Code(s): A41.9 - Sepsis, unspecified organism; R65.21 - Severe sepsis with septic shock Status: Acute Assessment and Plan: The patient with elevated AST/ALT, ANDRA, resp failure and low plt. No fevers. WBC elevated to 26K on admission but dropped to 11K on 09/07; WBC now at 14.2 K. Remains on Decadron since 09/05. The patient is on azithromycin and Rocephin. Vancomycin stopped 09/05. Lactic level normal now. (2) Acute respiratory failure with hypoxia: Code(s): J96.01 - Acute respiratory failure with hypoxia Status: Acute Assessment and Plan: The patient remains intubated and sedated. Respiratory failure related to community-acquired streptococcus pneumonia and COVID. On IV abx. Continue with nebulizer treatments. Blood cultures growing strep pneumo. Repeat BCx NGTD. Increasing O2 requirement. Sputum growing yeast of unclear significance. Wean vent as tolerated. (3) Community acquired pneumonia, bilateral: Code(s): J18.9 - Pneumonia, unspecified organism Status: Acute Assessment and Plan: CT showing necrotizing lobar pneumonia in the lower lobes and mild pneumonia in right middle lobe. BCx growing Strept Pneumoniae. Vanco stopped 09/05 but remains on Rocephin and Azithromycin. COVID also contributing to his current illness. Continue supportive care. (4) Bacteremia due to Streptococcus pneumoniae: Code(s): R78.81 - Bacteremia; B95.3 - Streptococcus pneumoniae as the cause of diseases classified elsewhere Status: Acute Assessment and Plan: As above. (5) COVID-19 virus infection: Code(s): U07.1 - COVID-19 Status: Acute Assessment and Plan: Swab positive 09/03. Started on dexamethasone 09/05 (Day 7) but no remdesivir with elevated LFTs and ANDRA. Continue supportive care. (6) Inguinal hernia: Code(s): K40.90 - Unilateral inguinal hernia, without obstruction or gangrene, not specified as recurrent Status: Chronic Assessment and Plan: CT scan showing Rt inguinal hernia containing small bowel and appendix with small bowel obstruction. Left inguinal hernia containing nonobstructed sigmoid colon. Dr. Dahl has seen and evaluated the patient. This has been a chronic condition. The hernias are soft and reducible. Scrotum is engorged and scrotal US small bowel reaching the scrotum and moderate right hydrocele. No need for urgent repair. Follow (7) Acute renal failure: Code(s): N17.9 - Acute kidney failure, unspecified Status: Acute Assessment and Plan: Creatinine elevated to 3.5. Treated with IV fluids. Creatinine down to 2.0 today; BUN elevated but he is on steroids. Probably secondary to pre renal azotemia with ATN from shock. Urine is clear. Nephrology following. (8) Elevated liver enzymes: Code(s): R74.8 - Abnormal levels of other serum enzymes Status: Acute Assessment and Plan: Patient's liver enzymes are elevated with AST 2700 and ALT 2280. Patient drinks beer every day at least a 6 pack. A liver ultrasound revealed gallbladder sludge with thickened wall but no stones. Ammonia level 50. Hepatitis panel negative. Possibly shock liver. Levels trending down. Continue to follow. Having diarrhea with fecal cont system so lactulose held. Repeat Ammonia level 25 now. (9) COPD (chronic obstructive pulmonary disease) with emphysema: Qualifiers: Emphysema type: panlobular Qualified Code(s): J43.1 - Panlobular emphysema Code(s): J43.9 - Emphysema, unspecified Status: Chronic Assessment and Plan: Continue with nebulizers. (10) DVT prophylaxis: Code(s): Z29.9 - Encounter for prophylactic measures, unspecified Status: Acute Assessment and Plan: SCDs; No Lovenox due to acute thrombocytopenia (11) Thrombocytopenia:
[2020-09-12 17:05] LABS: Glucose Point of Care 151 (65-105)
[2020-09-12] MEDS: NOREPINEPHRINE 8 MG/D5W 250 ML 8 MG/250 ML BAG 9.38 MG IV CONT (19:44)
[2020-09-12] MEDS: CISATRACURIUM BESYLATE 200 MG in DEXTROSE 5% 80 ML 9.19 ML IV CONT (20:21)
[2020-09-12 21:21] LABS: Lambda Light Chain 99.3 mg/L (5.7-26.3)
[2020-09-12 21:21] LABS: Kappa\\Lambda Light Chains 1.22 (0.26-1.65); Lambda Light Chain 85.4 mg/L (5.7-26.3)
[2020-09-13] VITALS (59 sets, daily range): BP systolic 80–123; BP diastolic 54–74; PULSE 80–124; RESP 28–32; TEMP 35.9–38.1; O2SAT 91–98
[2020-09-13] MEDS: ALBUTEROL SULFATE NEB 2.5 MG/0.5 ML INH 5 MG INHALATION ×4 (01:52→21:03)
[2020-09-13] MEDS: IPRATROPIUM BR 0.02% INH SOLN 0.5 MG/2.5 ML VIAL INHALATION ×4 (01:53→21:04)
[2020-09-13 03:52] LABS: Glucose Point of Care 114 (65-105)
[2020-09-13] MEDS: CENTRAL LINE FLUSH 10 ML IV PUSH ×4 (04:19→20:00)
[2020-09-13 04:29] LABS: Hematocrit 31.6 % (42.0-52.0); Hemoglobin 10.3 g/dL (14.0-18.0); Mean Corpuscular HGB Conc 32.6 g/dl (32-36); Mean Corpuscular Volume 107.5 fl (80-100); Mean Platelet Volume 12.5 fl (7.4-10.4); Platelet Count Result 298 k/mm3 (150-375); Red Blood Count 2.94 M/mm3 (4.6-6.20); Red Cell Distribution Width 15.1 % (11.5-14.5); White Blood Count 14.3 K/mm3 (4.5-10.0)
[2020-09-13 04:32] LABS: Alveolar/Arterial O2 Gradient 252.7 mmHg; Base Excess ABG 4.2 mEq/l (+/-2.0); Carboxyhemoglobin 0.2 % THb (0-2.0); Fractional Inspired Oxygen 55 %; HCO3 ABG 31.6 mEq/l (22.0-26.0); Methemoglobin ABG 0.2 %THb (0-1.5); Oxygen Content ABG 15.7 %vol (16.0-22.0); Oxygen Saturation ABG 92.6 % (95.0-100.0); PO2 ABG 70.7 mmHg (80.0-100.0); PO2 FiO2 Ratio Arterial Blood 1.29 %; Reduced Hemoglobin 6.6 %THb (0-5.0); pH ABG 7.327 (7.350-7.450)
[2020-09-13 04:33] LABS: Device VENTILATOR; Modified Allen's Test Unable to perform; PCO2 ABG 61.8 mmHg (35.0-45.0); Site Drawn LEFT RADIAL
[2020-09-13 04:34] LABS: Arterial Blood Gas PEEP 10 cmH2O; Arterial Blood Gas Tidal Volume 400 ml; Arterial Blood Gas Vent Mode CMV; Arterial Blood Gas Ventilator rate 28 /MIN
[2020-09-13 04:42] LABS: Alanine Aminotransferase 194 U/L (4-50); Albumin Level 2.3 g/dL (3.5-5.1); Alkaline Phosphatase 172 U/L (38-126); Anion Gap 4 mmol/L (8-16); Aspartate Amino Transferase 73 U/L (17-59); Bilirubin,Total 1.2 mg/dL (0.2-1.3); Blood Urea Nitrogen 101 mg/dL (9-20); Calcium 7.7 mg/dL (8.4-10.2); Carbon Dioxide 34 mmol/L (22-30); Chloride 105 mmol/L (98-107); Estimated CRCL calculation 32 ml/min; Estimated Glomerular Filt Rate 31; Glucose 123 mg/dL (75-110); Magnesium 2.8 mg/dL (1.6-2.3); Potassium 5.2 mmol/L (3.4-5.0); Sodium 143 mmol/L (137-145)
[2020-09-13] MEDS: CISATRACURIUM BESYLATE 200 MG in DEXTROSE 5% 80 ML 11.49 ML IV CONT ×2 (08:00→15:58)
[2020-09-13] MEDS: PANTOPRAZOLE SODIUM IV 40 MG VIAL IV PUSH ×2 (08:21→20:00)
[2020-09-13] MEDS: ENOXAPARIN 40 MG/0.4 ML SYRINGE SUB-Q (08:21)
[2020-09-13] MEDS: DEXAMETHASONE SOD PHOS INJ 4 MG/ML VIAL 6 MG IV PUSH (08:21)
[2020-09-13 08:56] LABS: Glucose Point of Care 103 (65-105)
[2020-09-13] MEDS: ACETAMINOPHEN ELIXIR 325 MG/10.15 ML UDC 650 MG PO (09:58)
--- NOTE | 2020-09-13 10:55 | PC.NURSE ---
Spouse and [id number] updated via telephone.
--- NOTE | 2020-09-13 11:02 | PCDIET ---
ICU Rounding Note: Vital 1.5 advancing toward goal rate; however, recommend change to Nepro at 45mL/hr for lower potassium content. This will provide 1782kcal, 80g protein and 719mL free water over 22 hours/day. MD order obtained. 30mL water flush every 4 hours continued. Last recorded weight is 76.6kg which is stable. Bowel Motility: +Stools via FMS. Labs Reviewed: Hgb (10.3), Hct (31.6), Glu (123), BUN (101), Cr (2.2), K (5.2), Alb (2.3), Faraz Ca (9.06) Meds Noted: Albuterol, Zithromax, Rocephin, Nimbex, Decadron, Atrovent, Lactulose, Versed, Levophed, Protonix Additional Notes: Blisters documented to bilateral heels. Coccyx macerated. Following daily in ICU rounds. Assessing/reassessing every Friday/Friday.
--- NOTE | 2020-09-13 11:22 | WPDINTPN ---
Progress Note: A&P Assessment and Plan (1) Acute respiratory failure with hypoxia: Code(s): J96.01 - Acute respiratory failure with hypoxia Status: Acute Assessment and Plan: Secondary to strep pneumonia and COVID-19 (09/03/2020) Intubated on 09/03/2020 at the time of presentation after failure of BIPAP trial -Continue mechanical ventilation, continue low tidal volume strategy, continue peep of 10, FiO2 55%. -chest x-ray and ABGs reviewed, -Sedation with fentanyl and Versed, also on neuromuscular blockade -patient with increasing respiratory effort using accessory muscles, started on Nimbex for neuromuscular blockade on 09/12 -continue bronchodilators -DC ceftriaxone and azithromycin after a total of 10 days, WBC count trending down. (2) COVID-19 virus infection: Code(s): U07.1 - COVID-19 Status: Acute Assessment and Plan: Continue dexamethasone -patient with acute kidney injury, was not a candidate for Remdesivir -convalescent plasma was transfused on 09/05/2020 -inflammatory markers with elevated will continue to monitor (3) Sepsis with acute liver failure and septic shock: Code(s): A41.9 - Sepsis, unspecified organism; R65.21 - Severe sepsis with septic shock; K72.01 - Acute and subacute hepatic failure with coma Status: Acute Assessment and Plan: Septic shock, likely related to strep pneumonia and bacteremia -CT scan of the abdomen pelvis showed necrotizing lobar pneumonia in the lower lobes with mild pneumonia in the right middle lobe - blood cultures 09/03 growing strep pneumoniae 2/2 bottles, brumfield sensitive. Repeat culture sent on 09/05 per are negative till now -urine culture 09/03 no growth -discontinued ceftriaxone azithromycin for a total of 10 days -Levophed was initiated overnight on 09/12/2020 and was discontinued early this morning on 09/13/2020 -check lactic acid -liver enzymes are improving -ultrasound showed distended gallbladder with sludge and wall thickening but no visible gallstones. -ultrasound of the scrotum showed: 1. Right inguinal hernia with small bowel reaching the scrotum. Moderate hydrocele.2. Left inguinal hernia with colon in inguinal canal. Small hydrocele.3. Morphologically normal testicles. No torsion. -surgery following (4) Bilateral inguinal hernia without obstruction or gangrene: Qualifiers: Recurrence: non-recurrent Qualified Code(s): K40.20 - Bilateral inguinal hernia, without obstruction or gangrene, not specified as recurrent Code(s): K40.20 - Bilateral inguinal hernia, without obstruction or gangrene, not specified as recurrent Status: Chronic Assessment and Plan: Surgery service has been been following Serial abdominal exam. (5) Acute renal failure: Code(s): N17.9 - Acute kidney failure, unspecified Status: Acute Assessment and Plan: Acute kidney injury likely related to hypovolemia, infection, ATN Continue to monitor renal function, electrolytes and urine output. OFF IVF as pt positive fluid balance Nephrology following Creatinine slightly increased but stable discussed with Nephrology (6) COPD (chronic obstructive pulmonary disease) with emphysema: Qualifiers: Emphysema type: panlobular Qualified Code(s): J43.1 - Panlobular emphysema Code(s): J43.9 - Emphysema, unspecified Status: Chronic Assessment and Plan: Continue bronchodilators (7) Community acquired pneumonia, bilateral: Code(s): J18.9 - Pneumonia, unspecified organism Status: Acute Assessment and Plan: Strep pneumoniae pneumonia Status post ceftriaxone and azithromycin (8) Gangrene of toe of left foot: Code(s): I96 - Gangrene, not elsewhere classified Status: Acute Assessment and Plan: Present on admission Dorsalis pedis palpable bilateral Discoloration on bilateral,, possible related to vascular disease Fee
--- NOTE | 2020-09-13 12:00 | P.PNNP_ITS ---
Progress Note: A&P Assessment and Plan (1) Acute renal failure: Code(s): N17.9 - Acute kidney failure, unspecified Status: Acute Assessment and Plan: * due to ATN from sepsis, shock, and COVID-19 * still making good urine output * however, BUN and creatinine continue to climb as does potassium * remains at risk for needing CORRECTIONAL OFFICER/dialysis (2) Septic shock: Code(s): A41.9 - Sepsis, unspecified organism; R65.21 - Severe sepsis with septic shock Status: Acute Assessment and Plan: * due to pneumonia and bacteremia * on antibiotic therapy * follow hemodynamics (3) Acute respiratory failure with hypoxia: Code(s): J96.01 - Acute respiratory failure with hypoxia Status: Acute Assessment and Plan: * due to pneumonia and COVID-19 along with sepsis * continue ventilator support and weaning as tolerated (4) COVID-19 virus infection: Code(s): U07.1 - COVID-19 Status: Acute Assessment and Plan: * not a candidate for remdesiver (elevated LFTs and creatinine) * On Dexamethasone * continue supportive therapy (5) Elevated liver enzymes: Code(s): R74.8 - Abnormal levels of other serum enzymes Status: Acute Assessment and Plan: * due to shock liver * GI following * Liver enzymes continue to improve. (6) Lactic acidosis: Code(s): E87.2 - Acidosis Status: Acute Assessment and Plan: * quite persistent due to interventions to date * presumably due to decreased perfusion to organs and possible bowel ischemia * trend levels for now Will continue to follow. Subjective Date/time seen: 09/13/20 12:00 Chart reviewed since last seen -- continues to make reasonably urine output; briefly hypotensive requiring vasopressor support but this has since been discontinued with blood pressures holding steadyh/stable; remains on ventilator support. Exam Narrative: Exam Narrative: General: WD/WN male in NAD; intubated/sedated/paralyzed Heart: normal S1 and S2; no rub Lungs: coarse breath sounds throughout Abdomen: soft, nontender, nondistended, positive bowel sounds Extremities: no cyanosis or clubbing; trace edema Skin: warm and dry Objective Data Vital Signs Vital Signs: Vital Signs Temp Pulse Resp BP Pulse Ox 09/13/20 11:00 119 H 28 H 92/61 L 09/13/20 10:58 36.8 C 09/13/20 10:00 122 H 28 H 101/69 93 09/13/20 09:58 38.1 C H 09/13/20 09:00 124 H 28 H 111/72 09/13/20 08:45 96 91 09/13/20 08:44 109 H 32 H 09/13/20 08:00 38.1 C H 109 H 28 H 123/74 91 09/13/20 06:20 108 H 28 H 111/68 09/13/20 06:19 106 H 28 H 09/13/20 06:18 107 H 28 H 09/13/20 06:00 106 H 28 H 111/68 93 09/13/20 05:43 104 H 28 H 115/62 09/13/20 05:30 104 H 115/62 09/13/20 04:42 93 09/13/20 04:17 98 28 H 111/66 09/13/20 04:16 99 28 H 09/13/20 04:15 100 28 H 111/66 09/13/20 04:00 36.6 C 98 28 H 111/66 95 09/13/20 03:30 97 28 H 94 09/13/20 03:00 98 28 H 111/71 94 09/13/20 02:30 95 96 09/13/20 02:21 98 28 H 103/64 09/13/20 02:00 110 H 32 H 103/64 95 09/13/20 01:17 98 28 H 09/13/20 00:13 95 28 H 09/13/20 00:11 96 28 H 12/
--- NOTE | 2020-09-13 12:00 | PM.PNNEP ---
Progress Note: A&P Assessment and Plan (1) Acute renal failure: Code(s): N17.9 - Acute kidney failure, unspecified Status: Acute Assessment and Plan: due to ATN from sepsis, shock, and COVID-19 still making good urine output however, BUN and creatinine continue to climb as does potassium remains at risk for needing STARS COORDINATOR/dialysis (2) Septic shock: Code(s): A41.9 - Sepsis, unspecified organism; R65.21 - Severe sepsis with septic shock Status: Acute Assessment and Plan: due to pneumonia and bacteremia on antibiotic therapy follow hemodynamics (3) Acute respiratory failure with hypoxia: Code(s): J96.01 - Acute respiratory failure with hypoxia Status: Acute Assessment and Plan: due to pneumonia and COVID-19 along with sepsis continue ventilator support and weaning as tolerated (4) COVID-19 virus infection: Code(s): U07.1 - COVID-19 Status: Acute Assessment and Plan: not a candidate for remdesiver (elevated LFTs and creatinine) On Dexamethasone continue supportive therapy (5) Elevated liver enzymes: Code(s): R74.8 - Abnormal levels of other serum enzymes Status: Acute Assessment and Plan: due to shock liver GI following Liver enzymes continue to improve. (6) Lactic acidosis: Code(s): E87.2 - Acidosis Status: Acute Assessment and Plan: quite persistent due to interventions to date presumably due to decreased perfusion to organs and possible bowel ischemia trend levels for now Will continue to follow. Subjective Date/time seen: 09/13/20 12:00 Chart reviewed since last seen -- continues to make reasonably urine output; briefly hypotensive requiring vasopressor support but this has since been discontinued with blood pressures holding steadyh/stable; remains on ventilator support. Exam Narrative: Exam Narrative: General: WD/WN male in NAD; intubated/sedated/paralyzed Heart: normal S1 and S2; no rub Lungs: coarse breath sounds throughout Abdomen: soft, nontender, nondistended, positive bowel sounds Extremities: no cyanosis or clubbing; trace edema Skin: warm and dry Objective Data Vital Signs Vital Signs: Vital Signs Temp Pulse Resp BP Pulse Ox 09/13/20 11:00 119 H 28 H 92/61 L 09/13/20 10:58 36.8 C 09/13/20 10:00 122 H 28 H 101/69 93 09/13/20 09:58 38.1 C H 09/13/20 09:00 124 H 28 H 111/72 09/13/20 08:45 96 91 09/13/20 08:44 109 H 32 H 09/13/20 08:00 38.1 C H 109 H 28 H 123/74 91 09/13/20 06:20 108 H 28 H 111/68 09/13/20 06:19 106 H 28 H 09/13/20 06:18 107 H 28 H 09/13/20 06:00 106 H 28 H 111/68 93 09/13/20 05:43 104 H 28 H 115/62 09/13/20 05:30 104 H 115/62 09/13/20 04:42 93 09/13/20 04:17 98 28 H 111/66 09/13/20 04:16 99 28 H 09/13/20 04:15 100 28 H 111/66 09/13/20 04:00 36.6 C 98 28 H 111/66 95 09/13/20 03:30 97 28 H 94 09/13/20 03:00 98 28 H 111/71 94 09/13/20 02:30 95 96 09/13/20 02:21 98 28 H 103/64 09/13/20 02:00 110 H 32 H 103/64 95 09/13/20 01:17 98 28 H 09/13/20 00:13 95 28 H 09/13/20 00:11 96 28 H 09/13/20 00:00 36.8 C 93 28 H 106/64 95 09/12/20 23:58 94 28 H 105/70 09/12/20 23:23 93 28 H 95 09/12/20 23:20 94 96 09/12/20 22:37 95 28 H 121/80 09/12/20 22:30 96 121/80 09/12/20 22:00 95 28 H 112/72 95 09/12/20 20:59 92 94 09/12/20 20:21 90 28 H 99/71 L 09/12/20 20:10 94 28 H 99/71 L 95 09/12/20 20:00 36.5 C 94 30 H 106/73 95 09/12/20 19:44 98 86/61 L 09/12/20 19:30 86/61 L 09/12/20 19:00 87/59 L 09/12/20 17:50 103 H 28 H 97/68 L 09/12/20 17:49 112 H 28 H 09/12/20 17:28 108 H 91 09/12/20 16:00 37.1 C 109 H 28 H 101/67 91 09/12/20 14:40 113 H 30 H 09/12/20 14:30 113 H 30 H 91
[2020-09-13] MEDS: FENTANYL 2,500MCG/NS250ML(*CRX 2,500 MCG/250 ML BAG 12.5 MCG IV CONT (12:10)
[2020-09-13 13:09] LABS: Glucose Point of Care 243 (65-105)
[2020-09-13 13:15] LABS: Lactic Acid Reflex 1.7 mmol/L (0.7-2.1)
[2020-09-13 13:17] LABS: Lactate Dehydrogenase 685 U/L (313-618)
[2020-09-13 15:11] LABS: Ferritin > 2000.00 ng/mL (11.1-264)
--- NOTE | 2020-09-13 16:15 | PM.IMPN ---
Progress Note: A&P Assessment and Plan (1) Septic shock: Code(s): A41.9 - Sepsis, unspecified organism; R65.21 - Severe sepsis with septic shock Status: Acute Assessment and Plan: The patient with elevated AST/ALT, ANDRA, resp failure and low plt. No fevers. WBC elevated to 26K on admission but dropped to 11K on 09/07; WBC now at 14.3 K. Remains on Decadron since 09/05. The patient is on azithromycin and Rocephin. Vancomycin stopped 09/05. Lactic level normal now. (2) Acute respiratory failure with hypoxia: Code(s): J96.01 - Acute respiratory failure with hypoxia Status: Acute Assessment and Plan: The patient remains intubated and sedated. Respiratory failure related to community-acquired streptococcus pneumonia and COVID. On IV abx. Continue with nebulizer treatments. Blood cultures growing strep pneumo. Repeat BCx NGTD. Increasing O2 requirement. Sputum growing yeast of unclear significance. Wean vent as tolerated. (3) Community acquired pneumonia, bilateral: Code(s): J18.9 - Pneumonia, unspecified organism Status: Acute Assessment and Plan: CT showing necrotizing lobar pneumonia in the lower lobes and mild pneumonia in right middle lobe. BCx growing Strept Pneumoniae. Vanco stopped 09/05 but remains on Rocephin and Azithromycin. COVID also contributing to his current illness. Continue supportive care. (4) Bacteremia due to Streptococcus pneumoniae: Code(s): R78.81 - Bacteremia; B95.3 - Streptococcus pneumoniae as the cause of diseases classified elsewhere Status: Acute Assessment and Plan: As above. (5) COVID-19 virus infection: Code(s): U07.1 - COVID-19 Status: Acute Assessment and Plan: Swab positive 09/03. Started on dexamethasone 09/05 (Day 9) but no remdesivir with elevated LFTs and ANDRA. Continue supportive care. (6) Inguinal hernia: Code(s): K40.90 - Unilateral inguinal hernia, without obstruction or gangrene, not specified as recurrent Status: Chronic Assessment and Plan: CT scan showing Rt inguinal hernia containing small bowel and appendix with small bowel obstruction. Left inguinal hernia containing nonobstructed sigmoid colon. Dr. Dahl has seen and evaluated the patient. This has been a chronic condition. The hernias are soft and reducible. Scrotum is engorged and scrotal US small bowel reaching the scrotum and moderate right hydrocele. No need for urgent repair. Follow (7) Acute renal failure: Code(s): N17.9 - Acute kidney failure, unspecified Status: Acute Assessment and Plan: Creatinine elevated to 3.5. Treated with IV fluids. Creatinine down to 2.1 today; BUN elevated but he is on steroids. Probably secondary to pre renal azotemia with ATN from shock. Urine is clear. Nephrology following. (8) Elevated liver enzymes: Code(s): R74.8 - Abnormal levels of other serum enzymes Status: Acute Assessment and Plan: Patient's liver enzymes are elevated with AST 2700 and ALT 2280. Patient drinks beer every day at least a 6 pack. A liver ultrasound revealed gallbladder sludge with thickened wall but no stones. Ammonia level 50. Hepatitis panel negative. Possibly shock liver. Levels trending down. Continue to follow. Having diarrhea with fecal cont system so lactulose held. (9) COPD (chronic obstructive pulmonary disease) with emphysema: Qualifiers: Emphysema type: panlobular Qualified Code(s): J43.1 - Panlobular emphysema Code(s): J43.9 - Emphysema, unspecified Status: Chronic Assessment and Plan: Continue with nebulizers. (10) DVT prophylaxis: Code(s): Z29.9 - Encounter for prophylactic measures, unspecified Status: Acute Assessment and Plan: Lovenox started 09/11 as platelet elsie (11) Thrombocytopenia: Code(s): D69.6 - Thrombocytopenia, u
[2020-09-13] MEDS: NOREPINEPHRINE 8 MG/D5W 250 ML 8 MG/250 ML BAG 3.75 MG IV CONT (17:17)
[2020-09-13 17:28] LABS: Glucose Point of Care 183 (65-105)
[2020-09-14] VITALS (47 sets, daily range): BP systolic 82–110; BP diastolic 57–71; PULSE 85–108; RESP 28–30; TEMP 36.1–37.1; O2SAT 89–96
[2020-09-14] MEDS: CISATRACURIUM BESYLATE 200 MG in DEXTROSE 5% 80 ML 11.49 ML IV CONT ×4 (00:38→23:52)
[2020-09-14 00:52] LABS: Glucose Point of Care 111 (65-105)
[2020-09-14] MEDS: IPRATROPIUM BR 0.02% INH SOLN 0.5 MG/2.5 ML VIAL INHALATION ×4 (02:43→19:44)
[2020-09-14] MEDS: ALBUTEROL SULFATE NEB 2.5 MG/0.5 ML INH 5 MG INHALATION ×4 (02:44→19:44)
[2020-09-14 04:07] LABS: Hematocrit 31.2 % (42.0-52.0); Mean Corpuscular HGB Conc 32.1 g/dl (32-36); Mean Corpuscular Hemoglobin 34.7 pg (26-34); Mean Corpuscular Volume 108.3 fl (80-100); Mean Platelet Volume 12.4 fl (7.4-10.4); Platelet Count Result 263 k/mm3 (150-375); Red Blood Count 2.88 M/mm3 (4.6-6.20); White Blood Count 13.4 K/mm3 (4.5-10.0)
[2020-09-14] MEDS: CENTRAL LINE FLUSH 10 ML IV PUSH ×4 (04:20→20:57)
[2020-09-14 04:34] LABS: Alanine Aminotransferase 149 U/L (4-50); Albumin Level 2.3 g/dL (3.5-5.1); Alkaline Phosphatase 159 U/L (38-126); Anion Gap 6 mmol/L (8-16); Aspartate Amino Transferase 62 U/L (17-59); Blood Urea Nitrogen 118 mg/dL (9-20); Calcium 7.6 mg/dL (8.4-10.2); Carbon Dioxide 33 mmol/L (22-30); Chloride 103 mmol/L (98-107); Estimated CRCL calculation 27 ml/min; Estimated Glomerular Filt Rate 25; Glucose 121 mg/dL (75-110); Magnesium 2.9 mg/dL (1.6-2.3); Potassium 5.3 mmol/L (3.4-5.0); Sodium 142 mmol/L (137-145)
[2020-09-14 04:53] LABS: Alveolar/Arterial O2 Gradient 214.3 mmHg; Base Excess ABG 1.8 mEq/l (+/-2.0); Carboxyhemoglobin 0.1 % THb (0-2.0); Fractional Inspired Oxygen 50 %; HCO3 ABG 29.5 mEq/l (22.0-26.0); Methemoglobin ABG 0.1 %THb (0-1.5); Oxygen Content ABG 15.4 %vol (16.0-22.0); Oxygen Saturation ABG 92.8 % (95.0-100.0); Oxyhemoglobin 93.2 % THb (90.0-100.0); PO2 ABG 73.1 mmHg (80.0-100.0); PO2 FiO2 Ratio Arterial Blood 1.46 %; Reduced Hemoglobin 6.6 %THb (0-5.0); Total Hemoglobin 11.7 g/dL (12.0-18.0); pH ABG 7.299 (7.350-7.450)
[2020-09-14 04:56] LABS: Arterial Blood Gas PEEP 10 cmH2O; Arterial Blood Gas Tidal Volume 400 ml; Arterial Blood Gas Vent Mode CMV; Arterial Blood Gas Ventilator rate 28 /MIN; Device VENTILATOR; Modified Allen's Test Unable to perform; PCO2 ABG 61.4 mmHg (35.0-45.0); Site Drawn RIGHT RADIAL
[2020-09-14] MEDS: FENTANYL 2,500MCG/NS250ML(*CRX 2,500 MCG/250 ML BAG 10 MCG IV CONT (08:09)
[2020-09-14] MEDS: ENOXAPARIN 40 MG/0.4 ML SYRINGE SUB-Q (08:16)
[2020-09-14] MEDS: DEXAMETHASONE SOD PHOS INJ 4 MG/ML VIAL 6 MG IV PUSH (08:16)
[2020-09-14] MEDS: PANTOPRAZOLE SODIUM IV 40 MG VIAL IV PUSH ×2 (08:17→20:57)
[2020-09-14 09:18] LABS: Glucose Point of Care 87 (65-105)
--- NOTE | 2020-09-14 09:29 | WPDINTPN ---
Progress Note: A&P Assessment and Plan (1) Acute respiratory failure with hypoxia: Code(s): J96.01 - Acute respiratory failure with hypoxia Status: Acute Assessment and Plan: Secondary to strep pneumonia and COVID-19 (09/03/2020) Intubated on 09/03/2020 at the time of presentation after failure of BIPAP trial -Continue mechanical ventilation, continue low tidal volume strategy, continue peep of 10, FiO2 50%. -chest x-ray and ABGs reviewed, -Sedation with fentanyl and Versed, also on neuromuscular blockade -Nimbex started on 09/12 -continue bronchodilators -DC ceftriaxone and azithromycin after a total of 10 days, WBC count trending down. (2) COVID-19 virus infection: Code(s): U07.1 - COVID-19 Status: Acute Assessment and Plan: Completed dexamethasone times 10 doses on 09/14/2020 -patient with acute kidney injury, was not a candidate for Remdesivir -convalescent plasma was transfused on 09/05/2020 -will trend inflammatory markers (3) Sepsis with acute liver failure and septic shock: Code(s): A41.9 - Sepsis, unspecified organism; R65.21 - Severe sepsis with septic shock; K72.01 - Acute and subacute hepatic failure with coma Status: Acute Assessment and Plan: Patient febrile, hypotensive requiring Levophed which was initiated on 09/13/2020. -maintain MAP > 65 mmHg -patient was on ceftriaxone and azithromycin for 10 days which was discontinued on 09/13 -liver enzymes are improving -ultrasound showed distended gallbladder with sludge and wall thickening but no visible gallstones. -ultrasound of the scrotum showed: 1. Right inguinal hernia with small bowel reaching the scrotum. Moderate hydrocele.2. Left inguinal hernia with colon in inguinal canal. Small hydrocele.3. Morphologically normal testicles. No torsion. -surgery following (4) Bilateral inguinal hernia without obstruction or gangrene: Qualifiers: Recurrence: non-recurrent Qualified Code(s): K40.20 - Bilateral inguinal hernia, without obstruction or gangrene, not specified as recurrent Code(s): K40.20 - Bilateral inguinal hernia, without obstruction or gangrene, not specified as recurrent Status: Chronic Assessment and Plan: Surgery service has been been following Serial abdominal exam. (5) Acute renal failure: Code(s): N17.9 - Acute kidney failure, unspecified Status: Acute Assessment and Plan: Acute kidney injury likely related to hypovolemia, infection, ATN Continue to monitor renal function, electrolytes and urine output. OFF IVF as pt positive fluid balance Creatinine trending up along with BUN Will discuss with Nephrology (6) COPD (chronic obstructive pulmonary disease) with emphysema: Qualifiers: Emphysema type: panlobular Qualified Code(s): J43.1 - Panlobular emphysema Code(s): J43.9 - Emphysema, unspecified Status: Chronic Assessment and Plan: Continue bronchodilators (7) Community acquired pneumonia, bilateral: Code(s): J18.9 - Pneumonia, unspecified organism Status: Acute Assessment and Plan: Strep pneumoniae pneumonia Status post ceftriaxone and azithromycin (8) Gangrene of toe of left foot: Code(s): I96 - Gangrene, not elsewhere classified Status: Acute Assessment and Plan: Present on admission Dorsalis pedis palpable bilateral Discoloration on bilateral,, possible related to vascular disease Feet are warm (9) CHF (congestive heart failure): Code(s): I50.9 - Heart failure, unspecified Status: Acute Assessment and Plan: ECHO 1. Left ventricular systolic function is moderately reduced, estimated at 30%. 2. Left ventricular chamber dimension is normal. 3. The left ventricular diastolic function is grade I diastolic dysfunction. 4. Right ventricular chamber dimension is mildly enlarged. 5. Right ventricular systo
--- NOTE | 2020-09-14 11:15 | PCDIET ---
ICU Rounding Note: Tube feedings held overnight for 450mL residual. Nepro resuming at 20mL/hr. Last recorded weight is 74.6kg which is down from last review. Bowel Motility: +FMS. Labs Reviewed: Hgb (10.2), Hct (31.2), Glu (121), BUN (118), Cr (2.6), K (5.3), Alb (2.3), Faraz Ca (8.96) Meds Noted: Albuterol, Nimbex, Fentanyl, Atrovent, Lactulose, Versed, Levophed, Protonix Additional Notes: Buttocks macerated; bilateral foot blisters remain. Following daily in ICU rounds. Assessing/reassessing every Friday/Friday.
[2020-09-14 11:50] LABS: Glucose Point of Care 119 (65-105)
--- NOTE | 2020-09-14 14:28 | P.PNNP_ITS ---
Progress Note: A&P Assessment and Plan (1) Acute renal failure: Code(s): N17.9 - Acute kidney failure, unspecified Status: Acute Assessment and Plan: * due to ATN from sepsis, shock, and COVID-19 * still making good urine output * however, BUN and creatinine continue to climb as does potassium * remains at risk for needing CONFIDENTIAL INVESTIGATOR/dialysis (2) Septic shock: Code(s): A41.9 - Sepsis, unspecified organism; R65.21 - Severe sepsis with septic shock Status: Acute Assessment and Plan: * due to pneumonia and bacteremia * on antibiotic therapy * follow hemodynamics (3) Acute respiratory failure with hypoxia: Code(s): J96.01 - Acute respiratory failure with hypoxia Status: Acute Assessment and Plan: * due to pneumonia and COVID-19 along with sepsis * continue ventilator support and weaning as tolerated (4) COVID-19 virus infection: Code(s): U07.1 - COVID-19 Status: Acute Assessment and Plan: * not a candidate for remdesiver (elevated LFTs and creatinine) * On Dexamethasone * continue supportive therapy (5) Elevated liver enzymes: Code(s): R74.8 - Abnormal levels of other serum enzymes Status: Acute Assessment and Plan: * due to shock liver * GI following * Liver enzymes continue to improve. (6) Lactic acidosis: Code(s): E87.2 - Acidosis Status: Acute Assessment and Plan: * quite persistent due to interventions to date * presumably due to decreased perfusion to organs and possible bowel ischemia * trend levels for now Will continue to follow. Subjective Date/time seen: 09/14/20 14:28 Remains on full ventilator support and continues to make reasonable urine output (but BUN, creatinine, and K+ slowly rising); started on vasopressor therapy overnight due to persistent hypotension; no other acute events overnight or earlier this AM. Exam Narrative: Exam Narrative: General: WD/WN male in NAD; intubated/sedated/paralyzed Heart: normal S1 and S2; no rub Lungs: coarse breath sounds Abdomen: soft, nontender, nondistended, positive bowel sounds Extremities: no cyanosis or clubbing; trace edema Skin: warm and intact Objective Data Vital Signs Vital Signs: Vital Signs Temp Pulse Resp BP Pulse Ox 09/14/20 14:00 97 30 H 82/57 L 94 09/14/20 13:40 99 30 H 94 12/31/20 12:00 37.1 C 103 H 30 H 91/60 L 93 09/14/20 11:43 108 H 30 H 09/14/20 11:11 106 H 92 09/14/20 10:00 108 H 30 H 89 L 09/14/20 08:30 104 H 109/67 09/14/20 08:14 99 30 H 90 09/14/20 08:10 98 30 H 109/67 09/14/20 08:09 100 28 H 09/14/20 08:00 36.5 C 108 H 30 H 106/65 89 L 09/14/20 06:04 96 28 H 104/63 09/14/20 06:00 96 28 H 104/63 92 09/14/20 05:00 100/71 09/14/20 04:37 91 92 09/14/20 04:16 92 28 H 106/69 09/14/20 04:15 93 28 H 09/14/20 04:14 94 28 H 09/14/20 04:12 92 106/69 09/14/20 04:00 36.1 C L 89 28 H 106/69 92 09/14/20 03:30 90 28 H 94 09/14/20 02:50 88 28 H 09/14/20 02:44 86 28 H 09/14/20 02:30 91 28 H 110/64 95 09/14/20 02:00 87 28 H 104/69 93 09/14/20 00:38 87 28 H 104/66 09/14/20 00:00 36.1 C L 88 28 H 103/68
--- NOTE | 2020-09-14 14:28 | PM.PNNEP ---
Progress Note: A&P Assessment and Plan (1) Acute renal failure: Code(s): N17.9 - Acute kidney failure, unspecified Status: Acute Assessment and Plan: due to ATN from sepsis, shock, and COVID-19 still making good urine output however, BUN and creatinine continue to climb as does potassium remains at risk for needing MANAGER [employer]ODUCT/dialysis (2) Septic shock: Code(s): A41.9 - Sepsis, unspecified organism; R65.21 - Severe sepsis with septic shock Status: Acute Assessment and Plan: due to pneumonia and bacteremia on antibiotic therapy follow hemodynamics (3) Acute respiratory failure with hypoxia: Code(s): J96.01 - Acute respiratory failure with hypoxia Status: Acute Assessment and Plan: due to pneumonia and COVID-19 along with sepsis continue ventilator support and weaning as tolerated (4) COVID-19 virus infection: Code(s): U07.1 - COVID-19 Status: Acute Assessment and Plan: not a candidate for remdesiver (elevated LFTs and creatinine) On Dexamethasone continue supportive therapy (5) Elevated liver enzymes: Code(s): R74.8 - Abnormal levels of other serum enzymes Status: Acute Assessment and Plan: due to shock liver GI following Liver enzymes continue to improve. (6) Lactic acidosis: Code(s): E87.2 - Acidosis Status: Acute Assessment and Plan: quite persistent due to interventions to date presumably due to decreased perfusion to organs and possible bowel ischemia trend levels for now Will continue to follow. Subjective Date/time seen: 09/14/20 14:28 Remains on full ventilator support and continues to make reasonable urine output (but BUN, creatinine, and K+ slowly rising); started on vasopressor therapy overnight due to persistent hypotension; no other acute events overnight or earlier this AM. Exam Narrative: Exam Narrative: General: WD/WN male in NAD; intubated/sedated/paralyzed Heart: normal S1 and S2; no rub Lungs: coarse breath sounds Abdomen: soft, nontender, nondistended, positive bowel sounds Extremities: no cyanosis or clubbing; trace edema Skin: warm and intact Objective Data Vital Signs Vital Signs: Vital Signs Temp Pulse Resp BP Pulse Ox 09/14/20 14:00 97 30 H 82/57 L 94 09/14/20 13:40 99 30 H 94 09/14/20 12:00 37.1 C 103 H 30 H 91/60 L 93 09/14/20 11:43 108 H 30 H 09/14/20 11:11 106 H 92 09/14/20 10:00 108 H 30 H 89 L 09/14/20 08:30 104 H 109/67 09/14/20 08:14 99 30 H 90 09/14/20 08:10 98 30 H 109/67 09/14/20 08:09 100 28 H 09/14/20 08:00 36.5 C 108 H 30 H 106/65 89 L 09/14/20 06:04 96 28 H 104/63 09/14/20 06:00 96 28 H 104/63 92 09/14/20 05:00 100/71 09/14/20 04:37 91 92 09/14/20 04:16 92 28 H 106/69 09/14/20 04:15 93 28 H 09/14/20 04:14 94 28 H 09/14/20 04:12 92 106/69 09/14/20 04:00 36.1 C L 89 28 H 106/69 92 09/14/20 03:30 90 28 H 94 09/14/20 02:50 88 28 H 09/14/20 02:44 86 28 H 09/14/20 02:30 91 28 H 110/64 95 09/14/20 02:00 87 28 H 104/69 93 09/14/20 00:38 87 28 H 104/66 09/14/20 00:00 36.1 C L 88 28 H 103/68 95 09/13/20 23:33 87 28 H 94 09/13/20 23:14 87 28 H 106/67 94 09/13/20 23:10 84 96 09/13/20 22:00 82 28 H 95/62 L 93 09/13/20 21:24 85 28 H 09/13/20 21:18 83 28 H 09/13/20 21:11 80 28 H 09/13/20 21:09 80 97 09/13/20 21:04 80 28 H 09/13/20 21:00 82 28 H 94/66 L 98 09/13/20 20:04 35.9 C L 09/13/20 20:00 80 28 H 91/63 L 96 09/13/20 19:49 85 28 H 92/62 L 09/13/20 19:48 84 28 H 09/13/20 19:00 87/61 L 09/13/20 18:00 84 28 H 87/61 L 98 09/13/20 17:18 91 28 H 09/13/20 17:17 91 80/54 L 09/13/20 17:16 92 28 H 09/13/20 17:15 100 96 09/13/20 17:00 92 28 H 80/54 L
[2020-09-14 16:07] LABS: Glucose Point of Care 135 (65-105)
--- NOTE | 2020-09-14 17:02 | PM.IMPN ---
Progress Note: A&P Assessment and Plan (1) Septic shock: Code(s): A41.9 - Sepsis, unspecified organism; R65.21 - Severe sepsis with septic shock Status: Acute Assessment and Plan: The patient with elevated AST/ALT, ANDRA, resp failure and low plt. No fevers. WBC elevated to 26K on admission but dropped to 11K on 09/07; WBC now at 13.4 K. Finished 10 days of dexamethasone today 09/14. The patient finished 10 days azithromycin and Rocephin 09/13. Vancomycin stopped 09/05. Lactic level normal now. (2) Acute respiratory failure with hypoxia: Code(s): J96.01 - Acute respiratory failure with hypoxia Status: Acute Assessment and Plan: The patient remains intubated and sedated. Respiratory failure related to community-acquired streptococcus pneumonia and COVID. Finished 10 da course of antibiotics Continue with nebulizer treatments. Blood cultures grew strep pneumo. Repeat BCx NGTD. . Sputum growing yeast of unclear significance. Wean vent as tolerated. (3) Community acquired pneumonia, bilateral: Code(s): J18.9 - Pneumonia, unspecified organism Status: Acute Assessment and Plan: CT showing necrotizing lobar pneumonia in the lower lobes and mild pneumonia in right middle lobe. BCx growing Strep Pneumoniae. Vanco stopped 09/05 and d/tacho Rocephin and Azithromycin after 10 days 09/13 . COVID also contributing to his current illness. Continue supportive care. (4) Bacteremia due to Streptococcus pneumoniae: Code(s): R78.81 - Bacteremia; B95.3 - Streptococcus pneumoniae as the cause of diseases classified elsewhere Status: Acute Assessment and Plan: As above. (5) COVID-19 virus infection: Code(s): U07.1 - COVID-19 Status: Acute Assessment and Plan: Swab positive 09/03. Started on dexamethasone 09/05 (Day 10 today 09/14) but no remdesivir with elevated LFTs and ANDRA. Continue supportive care. Had convalescent plasma 09/05 also (6) Inguinal hernia: Code(s): K40.90 - Unilateral inguinal hernia, without obstruction or gangrene, not specified as recurrent Status: Chronic Assessment and Plan: CT scan showing Rt inguinal hernia containing small bowel and appendix with small bowel obstruction. Left inguinal hernia containing nonobstructed sigmoid colon. Dr. Dahl has seen and evaluated the patient. This has been a chronic condition. The hernias are soft and reducible. Scrotum is engorged and scrotal US small bowel reaching the scrotum and moderate right hydrocele. No need for urgent repair. Follow (7) Acute renal failure: Code(s): N17.9 - Acute kidney failure, unspecified Status: Acute Assessment and Plan: Creatinine elevated to 3.5. Treated with IV fluids. Creatinine down to 2.6 today; BUN elevated but has been on steroids. Probably secondary to pre renal azotemia with ATN from shock. Urine is clear. Nephrology following. (8) Elevated liver enzymes: Code(s): R74.8 - Abnormal levels of other serum enzymes Status: Acute Assessment and Plan: Patient's liver enzymes are elevated with AST 2700 and ALT 2280. Patient drinks beer every day at least a 6 pack. A liver ultrasound revealed gallbladder sludge with thickened wall but no stones. Ammonia level 50. Hepatitis panel negative. Probable shock liver. Levels trending down. Continue to follow. Having diarrhea with fecal cont system so lactulose held. (9) COPD (chronic obstructive pulmonary disease) with emphysema: Qualifiers: Emphysema type: panlobular Qualified Code(s): J43.1 - Panlobular emphysema Code(s): J43.9 - Emphysema, unspecified Status: Chronic Assessment and Plan: Continue with nebulizers. (10) DVT prophylaxis: Code(s): Z29.9 - Encounter for prophylactic measures, unspecified Status: Acute Assessment and Plan: Lovenox started 1
[2020-09-15] VITALS (32 sets, daily range): BP systolic 99–113; BP diastolic 54–72; PULSE 95–114; RESP 30–106; TEMP 36.5–37.4; O2SAT 89–96
[2020-09-15 00:53] LABS: Glucose Point of Care 115 (65-105)
[2020-09-15] MEDS: IPRATROPIUM BR 0.02% INH SOLN 0.5 MG/2.5 ML VIAL INHALATION ×2 (02:09→08:07)
[2020-09-15] MEDS: ALBUTEROL SULFATE NEB 2.5 MG/0.5 ML INH 5 MG INHALATION ×2 (02:09→08:07)
[2020-09-15 04:30] LABS: Hematocrit 30.4 % (42.0-52.0); Hemoglobin 9.9 g/dL (14.0-18.0); Mean Corpuscular HGB Conc 32.6 g/dl (32-36); Mean Corpuscular Hemoglobin 35.5 pg (26-34); Mean Platelet Volume 12.6 fl (7.4-10.4); Platelet Count Result 264 k/mm3 (150-375); Red Blood Count 2.79 M/mm3 (4.6-6.20); Red Cell Distribution Width 14.6 % (11.5-14.5); White Blood Count 11.4 K/mm3 (4.5-10.0)
[2020-09-15 04:44] LABS: Alanine Aminotransferase 130 U/L (4-50); Albumin Level 2.4 g/dL (3.5-5.1); Alkaline Phosphatase 174 U/L (38-126); Anion Gap 5 mmol/L (8-16); Aspartate Amino Transferase 71 U/L (17-59); Bilirubin,Total 0.7 mg/dL (0.2-1.3); Calcium 7.7 mg/dL (8.4-10.2); Carbon Dioxide 33 mmol/L (22-30); Chloride 105 mmol/L (98-107); Estimated CRCL calculation 24 ml/min; Estimated Glomerular Filt Rate 22; Glucose 106 mg/dL (75-110); Magnesium 2.9 mg/dL (1.6-2.3); Potassium 5.7 mmol/L (3.4-5.0); Sodium 143 mmol/L (137-145)
[2020-09-15 05:30] LABS: Base Excess ABG 1.3 mEq/l (+/-2.0); Carboxyhemoglobin 0.3 % THb (0-2.0); Fractional Inspired Oxygen 60 %; HCO3 ABG 28.6 mEq/l (22.0-26.0); Methemoglobin ABG 0.3 %THb (0-1.5); Oxygen Saturation ABG 92.9 % (95.0-100.0); Oxyhemoglobin 93.1 % THb (90.0-100.0); PCO2 ABG 58.3 mmHg (35.0-45.0); PO2 ABG 72.7 mmHg (80.0-100.0); PO2 FiO2 Ratio Arterial Blood 1.21 %; Reduced Hemoglobin 6.3 %THb (0-5.0); Total Hemoglobin 11.4 g/dL (12.0-18.0); pH ABG 7.308 (7.350-7.450)
[2020-09-15 05:31] LABS: Device VENTILATOR; Modified Allen's Test Pass; Site Drawn LEFT RADIAL
[2020-09-15 05:32] LABS: Arterial Blood Gas PEEP 10 cmH2O; Arterial Blood Gas Tidal Volume 400 ml; Arterial Blood Gas Vent Mode CMV; Arterial Blood Gas Ventilator rate 30 /MIN
[2020-09-15] MEDS: CENTRAL LINE FLUSH 10 ML IV PUSH ×2 (05:37→13:02)
[2020-09-15 06:09] LABS: Blood Urea Nitrogen 137 mg/dL (9-20)
[2020-09-15] MEDS: FENTANYL 2,500MCG/NS250ML(*CRX 2,500 MCG/250 ML BAG 12.5 MCG IV CONT (06:29)
[2020-09-15] MEDS: CISATRACURIUM BESYLATE 200 MG in DEXTROSE 5% 80 ML 11.49 ML IV CONT (08:50)
[2020-09-15] MEDS: ENOXAPARIN 40 MG/0.4 ML SYRINGE SUB-Q (09:01)
[2020-09-15] MEDS: PANTOPRAZOLE SODIUM IV 40 MG VIAL IV PUSH (09:01)
--- NOTE | 2020-09-15 09:22 | WPDINTPN ---
Progress Note: A&P Assessment and Plan (1) Acute respiratory failure with hypoxia: Code(s): J96.01 - Acute respiratory failure with hypoxia Status: Acute Assessment and Plan: Secondary to strep pneumonia and COVID-19 (09/03/2020) Intubated on 09/03/2020 at the time of presentation after failure of BIPAP trial -Continue mechanical ventilation, continue low tidal volume strategy, continue peep of 10, FiO2 70%. FiO2 to be increased this morning -chest x-ray and ABGs reviewed, no significant change in diffuse bilateral opacities -Sedation with fentanyl and Versed, also on neuromuscular blockade -Nimbex started on 09/12 -continue bronchodilators -DC ceftriaxone and azithromycin after a total of 10 days, WBC count trending down. (2) COVID-19 virus infection: Code(s): U07.1 - COVID-19 Status: Acute Assessment and Plan: Completed dexamethasone times 10 doses on 09/14/2020 -patient with acute kidney injury, was not a candidate for Remdesivir -convalescent plasma was transfused on 09/05/2020 -will trend inflammatory markers (3) Sepsis with acute liver failure and septic shock: Code(s): A41.9 - Sepsis, unspecified organism; R65.21 - Severe sepsis with septic shock; K72.01 - Acute and subacute hepatic failure with coma Status: Acute Assessment and Plan: Patient febrile, hypotensive requiring, currently off Levophed -patient was on ceftriaxone and azithromycin for 10 days which was discontinued on 09/13 -liver enzymes elevated but improving, could be related to alcoholic liver disease -ultrasound showed distended gallbladder with sludge and wall thickening but no visible gallstones. -ultrasound of the scrotum showed: 1. Right inguinal hernia with small bowel reaching the scrotum. Moderate hydrocele.2. Left inguinal hernia with colon in inguinal canal. Small hydrocele.3. Morphologically normal testicles. No torsion. -surgery following (4) Bilateral inguinal hernia without obstruction or gangrene: Qualifiers: Recurrence: non-recurrent Qualified Code(s): K40.20 - Bilateral inguinal hernia, without obstruction or gangrene, not specified as recurrent Code(s): K40.20 - Bilateral inguinal hernia, without obstruction or gangrene, not specified as recurrent Status: Chronic Assessment and Plan: Surgery service has been been following Serial abdominal exam. (5) Acute renal failure: Code(s): N17.9 - Acute kidney failure, unspecified Status: Acute Assessment and Plan: Acute kidney injury likely related to hypovolemia, infection, ATN Continue to monitor renal function, electrolytes and urine output. OFF IVF as pt positive fluid balance Creatinine trending up along with BUN Will discuss with Nephrology (6) COPD (chronic obstructive pulmonary disease) with emphysema: Qualifiers: Emphysema type: panlobular Qualified Code(s): J43.1 - Panlobular emphysema Code(s): J43.9 - Emphysema, unspecified Status: Chronic Assessment and Plan: Continue bronchodilators (7) Community acquired pneumonia, bilateral: Code(s): J18.9 - Pneumonia, unspecified organism Status: Acute Assessment and Plan: Strep pneumoniae pneumonia Status post ceftriaxone and azithromycin (8) Gangrene of toe of left foot: Code(s): I96 - Gangrene, not elsewhere classified Status: Acute Assessment and Plan: Present on admission Dorsalis pedis palpable bilateral Discoloration on bilateral,, possible related to vascular disease Feet are warm (9) CHF (congestive heart failure): Code(s): I50.9 - Heart failure, unspecified Status: Acute Assessment and Plan: ECHO 1. Left ventricular systolic function is moderately reduced, estimated at 30%. 2. Left ventricular chamber dimension is normal. 3. The left ventricular diastolic function is grade I diastolic dysfunc
[2020-09-15 09:29] LABS: Prothrombin Time 14.1 Seconds (11.1-14.7)
[2020-09-15 12:46] LABS: Glucose Point of Care 116 (65-105)
[2020-09-15 13:11] LABS: Lactate Dehydrogenase 689 U/L (313-618)
--- NOTE | 2020-09-15 13:57 | PM.IMPN ---
Progress Note: A&P Assessment and Plan (1) Septic shock: Code(s): A41.9 - Sepsis, unspecified organism; R65.21 - Severe sepsis with septic shock Status: Acute Assessment and Plan: The patient with elevated AST/ALT, ANDRA, resp failure and low plt. No fevers. WBC elevated to 26K on admission but dropped to 11K on 09/07; WBC now at 11.4 K. Finished 10 days of dexamethasone today 09/14. The patient finished 10 days azithromycin and Rocephin 09/13. Vancomycin stopped 09/05. Lactic level normal now. (2) Acute respiratory failure with hypoxia: Code(s): J96.01 - Acute respiratory failure with hypoxia Status: Acute Assessment and Plan: The patient remains intubated and sedated. Respiratory failure related to community-acquired streptococcus pneumonia and COVID. Finished 10 da course of antibiotics Continue with nebulizer treatments. Blood cultures grew strep pneumo. Repeat BCx NGTD. . Sputum growing yeast of unclear significance. Wean vent as tolerated. (3) Community acquired pneumonia, bilateral: Code(s): J18.9 - Pneumonia, unspecified organism Status: Acute Assessment and Plan: CT showing necrotizing lobar pneumonia in the lower lobes and mild pneumonia in right middle lobe. BCx growing Strep Pneumoniae. Vanco stopped 09/05 and d/tacho Rocephin and Azithromycin after 10 days 09/13 . COVID also contributing to his current illness. Continue supportive care. (4) Bacteremia due to Streptococcus pneumoniae: Code(s): R78.81 - Bacteremia; B95.3 - Streptococcus pneumoniae as the cause of diseases classified elsewhere Status: Acute Assessment and Plan: As above. (5) COVID-19 virus infection: Code(s): U07.1 - COVID-19 Status: Acute Assessment and Plan: Swab positive 09/03. Started on dexamethasone 09/05 (Day 10 09/14) but no remdesivir with elevated LFTs and ANDRA. Continue supportive care. Had convalescent plasma 09/05 also (6) Inguinal hernia: Code(s): K40.90 - Unilateral inguinal hernia, without obstruction or gangrene, not specified as recurrent Status: Chronic Assessment and Plan: CT scan showing Rt inguinal hernia containing small bowel and appendix with small bowel obstruction. Left inguinal hernia containing nonobstructed sigmoid colon. Dr. Dahl has seen and evaluated the patient. This has been a chronic condition. The hernias are soft and reducible. Scrotum is engorged and scrotal US small bowel reaching the scrotum and moderate right hydrocele. No need for urgent repair. Follow (7) Acute renal failure: Code(s): N17.9 - Acute kidney failure, unspecified Status: Acute Assessment and Plan: Creatinine elevated to 3.5. Treated with IV fluids. Creatinine down to 2.9 today; BUN elevated but has been on steroids. Probably secondary to pre renal azotemia with ATN from shock. Urine is clear. Nephrology following family apparently does not want to pursue dialysis and contemplating going to supportive care 09/16/20 (8) Elevated liver enzymes: Code(s): R74.8 - Abnormal levels of other serum enzymes Status: Acute Assessment and Plan: Patient's liver enzymes are elevated with AST 2700 and ALT 2280. Patient drinks beer every day at least a 6 pack. A liver ultrasound revealed gallbladder sludge with thickened wall but no stones. Ammonia level 50. Hepatitis panel negative. Probable shock liver. Levels trending down. Continue to follow. Having diarrhea with fecal cont system so lactulose held. (9) COPD (chronic obstructive pulmonary disease) with emphysema: Qualifiers: Emphysema type: panlobular Qualified Code(s): J43.1 - Panlobular emphysema Code(s): J43.9 - Emphysema, unspecified Status: Chronic Assessment and Plan: Continue with nebulizers. (10) DVT prophylaxis: Code(s): Z29.9 - Encounter for prophyl
--- NOTE | 2020-09-15 14:37 | PCDIET ---
Nutrition Follow-Up Complete: Inadequate oral intake related to inability to consume foods orally as evidence by mechanical ventilation Total intake will meet estimated nutrition needs Goal: Approaching goal. Continue goal at this time. Pt current nutrition is Nepro at 30ml/hr with goal of 45m/hr. Nutrition recommendation: Agree at 30ml/hr Last recorded weight is 72.6 kg, down from 74.6kg yesterday ; -47ml I/O Bowel Motility: +FMS Labs Reviewed: BUN 137, K 5.7, Cr 2.90, glucose 115, 2.4 albumin, Mg 2.9, AST/ALT 130/174 Meds Noted:Fentanyl, Versed, Lactulose, Levophed Additional Notes: Pt at 30ml/hr over 22hrs of Nepro getting 1188kcals, 53g protein, and 480ml free water. Per MD notes, family states pt does not want dialysis and therefore possible plans for comfort care today or tomorrow. We will continue to monitor nutrition tolerance, appropriate formula, weight, labs, skin daily in ICU rounds and with reassessment every T/F.
--- NOTE | 2020-09-15 15:14 | PM.PNNEP ---
Progress Note: A&P Assessment and Plan (1) Acute renal failure: Code(s): N17.9 - Acute kidney failure, unspecified Status: Acute Assessment and Plan: due to ATN from sepsis, shock, and COVID-19 still making good urine output however, BUN and creatinine continue to climb as is potassium the next step is likely dialysis for stabilization of these issues (2) Septic shock: Code(s): A41.9 - Sepsis, unspecified organism; R65.21 - Severe sepsis with septic shock Status: Acute Assessment and Plan: due to pneumonia and bacteremia on antibiotic therapy follow hemodynamics (3) Acute respiratory failure with hypoxia: Code(s): J96.01 - Acute respiratory failure with hypoxia Status: Acute Assessment and Plan: due to pneumonia and COVID-19 along with sepsis continue ventilator support and weaning as tolerated (4) COVID-19 virus infection: Code(s): U07.1 - COVID-19 Status: Acute Assessment and Plan: not a candidate for remdesiver (elevated LFTs and creatinine) On Dexamethasone continue supportive therapy (5) Elevated liver enzymes: Code(s): R74.8 - Abnormal levels of other serum enzymes Status: Acute Assessment and Plan: due to shock liver GI following Liver enzymes continue to improve. (6) Lactic acidosis: Code(s): E87.2 - Acidosis Status: Acute Assessment and Plan: quite persistent due to interventions to date presumably due to decreased perfusion to organs and possible bowel ischemia trend levels for now Noted discussion with family by Dr. Martinez regarding the likely need for renal replacement therapy/dialysis. However, the are not interested in pursuing such therapy as this would go against the patient's wishes. Given his multisystem organ failure; code status has been changed to DNR with likely transition to comfort care measures Will continue to follow from a distance. Subjective Date/time seen: 09/15/20 15:14 Since last seen, renal function has deteriorated further with rising BUN, creatinine and potassium; he is now requiring more supplemental oxygen as well; remains intubated/sedated/paralyzed; no real significant improvement noted in the last 24 hours. Exam Narrative: Exam Narrative: General: WD/WN male in NAD; intubated/sedated/paralyzed Heart: normal S1 and S2; no rub Lungs: coarse breath sounds Abdomen: soft, nontender, nondistended, positive bowel sounds Extremities: no cyanosis or clubbing; trace edema Skin: changes noted to toes Objective Data Vital Signs Vital Signs: Vital Signs Temp Pulse Resp BP Pulse Ox 09/15/20 14:00 112 H 30 H 100/56 L 91 09/15/20 13:00 111 H 30 H 100/60 09/15/20 12:42 114 H 30 H 09/15/20 12:00 37.4 C 108 H 30 H 102/57 L 91 09/15/20 11:46 111 H 90 09/15/20 11:00 111 H 30 H 104/54 L 09/15/20 10:00 112 H 30 H 101/61 91 09/15/20 09:00 112 H 30 H 107/58 L 09/15/20 08:52 105 H 30 H 09/15/20 08:50 108 H 30 H 99/62 L 09/15/20 08:10 106 H 30 H 89 L 09/15/20 08:00 36.9 C 105 H 30 H 105/61 89 L 09/15/20 07:00 105 H 30 H 113/63 09/15/20 06:29 104 H 30 H 105/58 L 09/15/20 06:00 102 H 30 H 105/58 L 92 09/15/20 05:37 102 H 30 H 107/62 09/15/20 05:06 101 H 93 09/15/20 04:37 102 H 30 H 111/59 L 90 09/15/20 04:00 36.7 C 102 H 30 H 108/59 L 91 09/15/20 03:38 98 110/72 09/15/20 03:37 101 H 30 H 110/72 09/15/20 03:36 101 H 30 H 09/15/20 03:35 97 106 H 09/15/20 02:30 102 H 101/67 09/15/20 02:25 105 H 30 H 108/66 09/15/20 02:10 98 92 09/15/20 02:09 98 30 H 09/15/20 02:00 98 30 H 108/66 92 09/15/20 01:00 95 30 H 109/65 92 09/15/20 00:00 36.5 C 98 30 H 102/61 96 09/14/20 23:52 92 30 H 100/61 09/14/20 23:42 92 30 H 93 09/14/20 23:10 92 92 09/14/20 23:00
--- NOTE | 2020-09-15 15:22 | PC.NURSE ---
Spouse and daughter to bedside at 1430. Dr. Martinez reviewed plan of care with family, family decided to make patient comfort care status.
[2020-09-15] MEDS: LORazepam INJ (*CRX) 2 MG/ML VIAL IV PUSH ×2 (15:27→16:32)
[2020-09-15] MEDS: MORPHINE SULFATE (*CRX) 2 MG/ML INJ IV PUSH (15:27)
[2020-09-15] MEDS: MORPHINE SULFATE INJ (*CRX) 10 MG/ML AMP 5 MG IV PUSH (16:18)
--- NOTE | 2020-09-15 16:21 | PC.NURSE ---
Extubated at 1615
--- NOTE | 2020-09-15 16:48 | PM.DDS ---
Discharge Sum: Prov Provider Primary care physician: Polly Kinney, Admitting provider: Jose G Bueno MD Consults: 09/03/20 Consult to Physician Routine Comment: called office and left message for consult Consulting Provider: Sarabjit Teran international affairs vice president/MD group to consult: gi acid condenser Reason for consultation: elevated liver enzymes Has provider been notified: Yes 09/03/20 14:09 Consult to Physician Routine Comment: Consulting Provider: Atul Dahl Reason for consultation: Bilateral inguinal hernia , bowel obstruction Has provider been notified: Yes Consult to Physician Routine Comment: Consulting Provider: Darvin Pappas Reason for consultation: septic shock Has provider been notified: Yes 09/04/20 Consult to Physician Routine Comment: Consulting Provider: Praveen Ahumada Reason for consultation: Elevated lactic acid Has provider been notified: Yes 09/05/20 08:59 Consult to Physician Routine Comment: OFFICE NOTIFID OF CONSULT Consulting Provider: Marcos Aguero international affairs vice president/MD group to consult: Nephrology Reason for consultation: Andra, acidosis Has provider been notified: Yes 09/10/20 Wound/ET Consult Routine Reason for Consult:: Bilateral foot blisters to heel and arch 09/14/20 07:30 Consult to Physician Routine Comment: EXCHANGE NOTIFIED OF CONSULT Consulting Provider: Candy Sequeira international affairs vice president/MD group to consult: NEPHROLOGY Reason for consultation: ANDRA, COVID 19 Has provider been notified: Yes Discharge Sum: Diag Contributing Factors (1) Septic shock: (2) Acute respiratory failure with hypoxia: (3) Community acquired pneumonia, bilateral: (4) Bacteremia due to Streptococcus pneumoniae: (5) COVID-19 virus infection: (6) Inguinal hernia: (7) Acute renal failure: (8) Elevated liver enzymes: (9) COPD (chronic obstructive pulmonary disease) with emphysema: (10) Thrombocytopenia: Discharge Sum: Summary Date and Time Date of admission: 09/03/20 14:07 Date of : 09/15/20 Summary Details: Date of and dictation 09/15/2020 60-year-old male admitted with sepsis and acute respiratory failure with pneumonia requiring mechanical ventilation. Was COVID positive and blood cultures grew strep pneumonia. He was treated with 10 days of dexamethasone and ceftriaxone and azithromycin. He also receive convalescent plasma on the . He received no remdesivir due to elevated LFTs. He continued to be hypotensive requiring pressors. His renal status was slowly deteriorating and family was left with the decision as whether to dialyze or not. They chose comfort care and the patient was extubated at 4:15 p.m. 09/15/2020 and he shortly thereafter Additional Data Attending physician: Earl Peoples MD
--- NOTE | 2020-09-15 18:01 | PC.NURSE ---
Patient at 1651. Dr. Feliciano notified at 1703. MTS notified Sugar at 1708. Lab- Nikki notified at 1710. Pharmacy Corinne notified at 1711. Family notified by Vinay. Call placed to [employer]'s office at 1705. Spoke with Ashlee alegria out on a call she will notify him to return call. Patient to go to [facility].
== END 2020-09-15 16:51 | disposition expired | DRG 870 ==
LOC: ANHED 09:35 → ANHICU 19:00
PROVIDERS: Family Medicine; Internal Medicine; Internal Medicine Critical Care Medicine; Internal Medicine Nephrology; Nurse Practitioner; Admitting Provider Internal Medicine; Emergency Provider General Practice; PCP Family Medicine; Visit Provider Internal Medicine
DX: A41.89 Other specified sepsis (principal); J96.01 Acute respiratory failure with hypoxia; K72.01 Acute and subacute hepatic failure with coma; R65.21 Severe sepsis with septic shock; U07.1 COVID-19; J12.82 Pneumonia due to coronavirus disease 2019; J15.9 Unspecified bacterial pneumonia; N17.0 Acute kidney failure with tubular necrosis; I96 Gangrene, not elsewhere classified; J43.1 Panlobular emphysema; B95.3 Streptococcus pneumoniae as the cause of diseases classified elsewhere; E86.0 Dehydration; K40.20 Bilateral inguinal hernia, without obstruction or gangrene, not specified as recurrent; F17.210 Nicotine dependence, cigarettes, uncomplicated; I11.0 Hypertensive heart disease with heart failure; I50.9 Heart failure, unspecified; D69.6 Thrombocytopenia, unspecified; E87.5 Hyperkalemia; Z66 Do not resuscitate; Z79.899 Other long term (current) drug therapy; Z88.1 Allergy status to other antibiotic agents
CPT/HCPCS: 31500; 36415; 36430; 36556; 36600; 70450; 71045; 74176; 76705; 76775; 76870; 80048; 80053; 80074; 80202; 81001; 82140; 82375; 82436; 82550; 82570; 82728; 82805; 82948; 83050; 83605; 83615; 83690; 83735; 83883; 84100; 84133; 84300; 84439; 84443; 85025; 85027; 85049; 85055; 85380; 85384; 85610; 85730; 85999; 86140; 86334; 86335; 86900; 86901; 87040; 87070; 87086; 87186; 87205; 87635; 87804; 88108; 93005; 93306; 93971; 93976; 94002; 94003; 94640; 96361; 96365; 96367; 96375; 99291; A9270; C1751; C9113; C9803; J0330; J0456; J0610; J0696; J1100; J1120; J1650; J1720; J2060; J2250; J2270; J2704; J3010; J3370; J7030; J7040; J7050; J7070; P9059; U0003